=== PATIENT | male | born 1945 | race Caucasian/White ===

== ENCOUNTER 2017-05-21 13:28 | Inpatient (IN) | payer MEDICARE, MEDICAID ==
--- NOTE | 2017-05-21 14:11 | EDM.PDOC ---
ED HPI GENERAL MEDICAL PROBLEM - General Chief Complaint: Abdominal Pain Stated Complaint: RIGHT SIDED ABDOMINAL PAIN Time Seen by Provider: 05/21/17 14:00 Source of Information: Reports: Patient, RN Notes Reviewed History Limitations: Reports: No Limitations - History of Present Illness INITIAL COMMENTS - FREE TEXT/NARRATIVE: 72-year-old gentleman presents to the emergency department today with complaint of right lower quadrant pain, he states initially started around his umbilicus and then migrated to the right side over the last 24 hours, he's had this pain for about a week does use MiraLAX for constipation. Had a large bowel movement last night. He has not passed any gas in 24 hours however does not feel nauseated either abdominal Pain Score (Numeric/FACES): 9 - Related Data Allergies Allergy/AdvReac Type Severity Reaction Status Date / Time No Known Allergies Allergy Verified 05/21/17 13:54 Home Meds: Home Meds Aspirin 325 mg PO DAILY 02/25/13 [History] Esomeprazole Magnesium [Nexium] 40 mg PO ASDIRECTED 02/25/13 [History] Fenofibrate Nanocrystallized [Tricor] 48 mg PO DAILY 02/25/13 [History] Fluocinolone Acetonide [Synalar 0.01% Top Soln] 1 ml TOP BID PRN 02/25/13 [ History] Furosemide [Furosemide] 40 mg PO DAILY 02/25/13 [History] Ramipril [Altace] 10 mg PO BID 02/25/13 [History] Simvastatin [Simvastatin] 40 mg PO BEDTIME 02/25/13 [History] buPROPion HCl [Zyban] 150 mg PO BID 02/25/13 [History] metFORMIN [Glucophage] 850 mg PO TID 02/25/13 [History] Past Medical History Cardiovascular History: Reports: CAD, High Cholesterol, Hypertension, Stents Gastrointestinal History: Reports: GERD Endocrine/Metabolic History: Reports: Diabetes, Type II - Past Surgical History GI Surgical History: Reports: Appendectomy Social & Family History - Tobacco Use Smoking Status *Q: Never Smoker - Caffeine Use Caffeine Use: Reports: Coffee - Recreational Drug Use Recreational Drug Use: No ED ROS GENERAL - Review of Systems Review Of Systems: See Below Constitutional: Reports: No Symptoms HEENT: Reports: No Symptoms Respiratory: Reports: No Symptoms Cardiovascular: Reports: No Symptoms GI/Abdominal: Reports: Abdominal Pain. Denies: Constipation, Diarrhea, Flatus, Nausea, Vomiting : Reports: No Symptoms Musculoskeletal: Reports: No Symptoms Skin: Reports: No Symptoms Neurological: Reports: No Symptoms ED EXAM, GI/ABD - Physical Exam Exam: See Below Text/Narrative:: General: Male, not in any distress, alert and oriented x3 HEENT: head is atraumatic normocephalic, eyes pupils equal round reactive to light, sclera clear no conjunctivitis appreciated. Ears tympanic membranes clear and melendez landmarks and light reflex are present bilaterally canals are clear. Nose no septal deviation, nares are clear, no blood present. Mouth mucosa is moist and pink no erythema or exudate noted in soft palate, tongue is midline uvula is midline, dentition is intact. Neck: Supple no thyromegaly no tracheal deviation. Nodes: Cervical nodes subclavicular nodes nontender no palpable lymphadenopathy noted. Lungs: clear to auscultation bilaterally with symmetrical respirations, no adventitious noise appreciated. CV: Regular rate and rhythm S1 and S2 appreciated no murmurs rubs or gallops noted. Abdomen: Soft, tender right lower quadrant, no palpable masses or organomegaly appreciated, no distention positive guarding bowel sounds are present, surgical scar right lower quadrant prior appendicitis well healed clean and dry. Neuro: Cranial nerves II through XII grossly intact Skin: Warm and dry, intact Extremities: No lower extremity edema appreciated, Course - Vital Signs Last Recorded V/S: Last Vital Signs Temp 97.7 F 05/21/17 13:52 Pulse 109 H 05/21/17 13:52 Resp 16 05/21/17 13:52 BP 145/89 H 05/21/17 13:52 Pulse Ox 97 05/21/17 13:52 - Orders/Labs/Meds Orders: Active Orders 24 hr Category Date Time Status Gastrointestinal Tube Mgmt [RC] ASDIRECTED Care 05/21/17 14:44 Active Peripheral IV Care [RC] . DIRECTED Care 05/21/17 14:08 Active Sodium Chloride 0.9% [Normal Saline] 1,000 ml Med 05/21/17 14:15 Active IV ASDIRECTED Sodium Chloride 0.9% [Saline Flush] Med 05/21/17 14:07 Active 10 ml FLUSH ASDIRECTED PRN Nasogastric Orogastric Tube Insertion [OM.PC] Routine Oth 05/21/17 14:44 Ordered Peripheral IV Insertion Adult [OM.PC] Urgent Oth 05/21/17 14:07 Ordered Medication Orders Sodium Chloride (Normal Saline) 1,000 mls @ 500 mls/hr IV ASDIRECTED ALBERT Last Admin: 05/21/17 14:41 Dose: 500 mls/hr Sodium Chloride (Saline Flush) 10 ml FLUSH ASDIRECTED PRN PRN Reason: Keep Vein Open Last Admin: 05/21/17 14:32 Dose: 10 ml Labs: Laboratory Tests 05/21/17 05/21/17 05/21/17 Range/Units 14:19 14:19 14:19 WBC 12.1 H (4.5-11.0) K/uL RBC 4.21 L (4.30-5.90) M/uL Hgb 11.9 L (12.0-15.0) g/dL Hct 35.5 L (40.0-54.0) % MCV 84 (80-98) fL MCH 28 (27-31) pg MCHC 34 (32-36) % Plt Count 257 (150-400) K/uL Neut % (Auto) 69 H (36-66) % Lymph % (Auto) 19 L (24-44) % Pettis % (Auto) 11 H (2-6) % Eos % (Auto) 1 L (2-4) % Baso % (Auto) 0 (0-1) % Sodium 137 L (140-148) mmol/L Potassium 4.2 (3.6-5.2) mmol/L Chloride 103 (100-108) mmol/L Carbon Dioxide 21 (21-32) mmol/L Anion Gap 17.2 H (5.0-14.0) mmol/L BUN 20 H (7-18) mg/dL Creatinine 1.6 H (0.8-1.3) mg/dL Est Cr Clr Drug Dosing 39.59 mL/min Estimated GFR (MDRD) 43 L (>60) Glucose 124 H (74-106) mg/dL Lactic Acid 1.6 (0.4-2.0) mmol/L Calcium 9.5 (8.5-10.1) mg/dL Total Bilirubin 0.5 (0.2-1.0) mg/dL AST 14 L (15-37) U/L ALT 17 (12-78) U/L Alkaline Phosphatase 88 (46-116) U/L Troponin I < 0.017 (0.000-0.056) ng/mL Total Protein 7.2 (6.4-8.2) g/dL Albumin 4.1 (3.4-5.0) g/dL Globulin 3.1 (2.3-3.5) g/dL Albumin/Globulin Ratio 1.3 (1.2-2.2) Lipase 82 (73-393) U/L Urine Color Urine Appearance Urine pH (4.5-8.0) Ur Specific [place] (1.008-1.030) Urine Protein (NEGATIVE) mg/dL Urine Glucose (UA) (NEGATIVE) mg/dL Urine Ketones (NEGATIVE) mg/dL Urine Occult Blood (NEGATIVE) Urine Nitrite (NEGAITVE) Urine Bilirubin (NEGATIVE) Urine Urobilinogen (NORMAL) mg/dL Ur Leukocyte Esterase (NEGATIVE) Urine RBC (0-5) Urine WBC (0-5) Ur Epithelial Cells Amorphous Sediment Urine Bacteria Urine Mucus 05/21/17 Range/Units 14:44 WBC (4.5-11.0) K/uL RBC (4.30-5.90) M/uL Hgb (12.0-15.0) g/dL Hct (40.0-54.0) % MCV (80-98) fL MCH (27-31) pg MCHC (32-36) % Plt Count (150-400) K/uL Neut % (Auto) (36-66) % Lymph % (Auto) (24-44) % Pettis % (Auto) (2-6) % Eos % (Auto) (2-4) % Baso % (Auto) (0-1) % Sodium (140-148) mmol/L Potassium (3.6-5.2) mmol/L Chloride (100-108) mmol/L Carbon Dioxide (21-32) mmol/L Anion Gap (5.0-14.0) mmol/L BUN (7-18) mg/dL Creatinine (0.8-1.3) mg/dL Est Cr Clr Drug Dosing mL/min Estimated GFR (MDRD) (>60) Glucose (74-106) mg/dL Lactic Acid (0.4-2.0) mmol/L Calcium (8.5-10.1) mg/dL Total Bilirubin (0.2-1.0) mg/dL AST (15-37) U/L ALT (12-78) U/L Alkaline Phosphatase (46-116) U/L Troponin I (0.000-0.056) ng/mL Total Protein (6.4-8.2) g/dL Albumin (3.4-5.0) g/dL Globulin (2.3-3.5) g/dL Albumin/Globulin Ratio (1.2-2.2) Lipase (73-393) U/L Urine Color Yellow Urine Appearance Clear Urine pH 5.0 (4.5-8.0) Ur Specific [place] 1.015 (1.008-1.030) Urine Protein Negative (NEGATIVE) mg/dL Urine Glucose (UA) Normal (NEGATIVE) mg/dL Urine Ketones Negative (NEGATIVE) mg/dL Urine Occult Blood Negative (NEGATIVE) Urine Nitrite Negative (NEGAITVE) Urine Bilirubin Negative (NEGATIVE) Urine Urobilinogen Normal (NORMAL) mg/dL Ur Leukocyte Esterase Negative (NEGATIVE) Urine RBC 0-5 (0-5) Urine WBC 0-5 (0-5) Ur Epithelial Cells Few Amorphous Sediment Few Urine Bacteria Not seen Urine Mucus Few Meds: Medications Generic Name Dose Route Start Last Admin Trade Name Freq PRN Reason Stop Dose Admin Sodium Chloride 1,000 mls @ 500 mls/hr 05/21/17 14:15 05/21/17 14:41 Normal Saline IV 500 mls/hr ASDIRECTED ALBERT Administration Sodium Chloride 10 ml 05/21/17 14:07 05/21/17 14:32 Saline Flush FLUSH 10 ml ASDIRECTED PRN Administration Keep Vein Open Discontinued Medications Generic Name Dose Route Start Last Admin Trade Name Freq PRN Reason Stop Dose Admin Hydromorphone HCl 1 mg 05/21/17 14:44 05/21/17 14:58 Dilaudid IVPUSH 05/21/17 14:45 1 mg ONETIME ONE Administration Iopamidol 117 ml 05/21/17 14:30 05/21/17 14:32 Isovue-300 (61%) IV 117 ml . DIRECTED ALBERT Administration Ondansetron HCl 4 mg 05/21/17 14:44 05/21/17 14:58 Zofran IVPUSH 05/21/17 14:45 4 mg ONETIME ONE Administration Departure - Departure Time of Disposition: 15:13 Disposition: Admitted As Inpatient 67 Condition: Fair Clinical Impression: Large bowel obstruction - Discharge Information Referrals: Arturo Crystal MD [Primary Care Provider] - Forms: ED Department Discharge - My Orders Last 24 Hours: My Active Orders 05/21/17 14:07 Sodium Chloride 0.9% [Saline Flush] 10 ml FLUSH ASDIRECTED PRN Peripheral IV Insertion Adult [OM.PC] Urgent 05/21/17 14:08 Peripheral IV Care [RC] . DIRECTED 05/21/17 14:15 Sodium Chloride 0.9% [Normal Saline] 1,000 ml IV ASDIRECTED 05/21/17 14:44 Gastrointestinal Tube Mgmt [RC] ASDIRECTED Nasogastric Orogastric Tube Insertion [OM.PC] Routine - Assessment/Plan Last 24 Hours: My Active Orders 05/21/17 14:07 Sodium Chloride 0.9% [Saline Flush] 10 ml FLUSH ASDIRECTED PRN Peripheral IV Insertion Adult [OM.PC] Urgent 05/21/17 14:08 Peripheral IV Care [RC] . DIRECTED 05/21/17 14:15 Sodium Chloride 0.9% [Normal Saline] 1,000 ml IV ASDIRECTED 05/21/17 14:44 Gastrointestinal Tube Mgmt [RC] ASDIRECTED Nasogastric Orogastric Tube Insertion [OM.PC] Routine Plan: Assessment Acuity = acute Site and laterality = bowel obstruction complicated in a patient with known history of coronary artery disease and diabetes mellitus type 2, hypertension and dyslipidemia Etiology = unclear etiology doesn't a history of appendicitis 20 years ago Manifestations = abdominal pain Location of injury = Home Lab values = WBC elevated at 12.1 consistent leukocytosis, creatinine elevated at 1.6 consistent with acute renal failure stage G IIIB lactic acid normal at 1.6 troponin was negative urinalysis unremarkable CT scan describes a bowel obstruction mid transverse colon Plan I did review lab work with him as well as CT scan results called and discussed case with hospitalist environmental conservation professor he agreed to, and evaluate the patient in the emergency department for admission, he has been given 1 L of fluids, 1 mg Dilaudid, 4 mg Zofran and an NG tube has been placed This note was dictated using [employer] voice recognition software please call with any questions on syntax or bernardo.
[2017-05-21] MEDS ORDERED: Sodium Chloride 0.9% 1,000 ML IV SCH ×2 (14:15→17:10)
[2017-05-21] MEDS ORDERED: Iopamidol 612 MG/ML 150 ML Bottle IV SCH (14:30)
[2017-05-21] MEDS: Sodium Chloride 0.9% 10 ML Syringe FLUSH PRN (14:32)
[2017-05-21] MEDS ORDERED: HYDROmorphone 1 MG/ML Syringe IVPUSH ONE (14:44)
[2017-05-21] MEDS ORDERED: Ondansetron 4 MG/2 ML SDV IVPUSH ONE (14:44)
--- NOTE | 2017-05-21 14:53 | CT ---
Abdomen Pelvis w Cont HISTORY: RLQ pain Axial spiral enhanced CT scan of the abdomen and pelvis was obtained using oral and intravenous contr ast. Coronal and sagittal. There are no prior exams for comparison. Reconstructions were obtained FINDINGS: Heart size is within normal limits. Lung bases are clear. No focal abnormality of the liver , spleen, gallbladder, pancreas, adrenal glands, or kidneys is identified. There is no hydronephrosis or ureteral dilatation. The ascending and proximal transverse colon are prominently distended and fluid-filled. Air-fluid lev els are seen. At the mid transverse colon there is abrupt prominent narrowing of the colon extending radiology medical about 2 cm. The colon then returns to relatively normal caliber. There is a small a mount of adjacent inflammatory fat stranding. Distal ileum is mildly dilated and fluid-filled. Remain ashwini of the small bowel loops are nondistended. There are scattered diverticuli most numerous in the s igmoid colon. Scattered atherosclerotic vascular calcification is noted. Abdominal aorta is not dilated. No pelvic mass or abnormal fluid collections are seen. I see no pelvic, retroperitoneal, or mesenteric adenopat hy. There is no free air or free fluid. Mild degenerative changes are noted diffusely along the lower thoracic and lumbar spine. IMPRESSION: 1. Fairly high-grade obstruction mid transverse colon. Obstruction due to adhesions or inflammation c ould be considered. Underlying malignancy needs to be excluded. I do not see signs of intussusception or volvulus. 2. Scattered diverticula are noted most numerous in the sigmoid colon. Report was called to Officer at 1442 hours. Total DLP 562 mGycm
--- NOTE | 2017-05-21 15:53 | PCM.HP ---
H&P History of Present Illness - General Date of Service: 05/21/17 Admit Problem/Dx: Admission Diagnosis/Problem Admission Diagnosis/Problem Intestinal obstruction Source of Information: Patient, Family, Provider History Limitations: Reports: No Limitations - History of Present Illness Initial Comments - Free Text/Narative: Genaro presented to the emergency department with approximately one week of progressive abdominal pain. He reports short but very sharp and severe pains that initially started in the right side of his abdomen and radiated to the right flank. These would only last for a few seconds before dissipating. He would have several of these episodes per hour but they lasted only a very short while. Over the past several days the pains have become more intense and more frequent. Over the past 24 hours they have started lasting much longer and can persist for up to 5 minutes. He did try some gas relieving pills but they did not provide any benefit. He has not noticed any obvious trigger for the pains and they seem to come and go in waves as they please. His appetite has been reduced but not absent. He has continued to have bowel movements and had 2 of them yesterday and one the day before area and these were watery bowel movements not formed bowel movements. He has not had any nausea or vomiting. No fevers or chills. His weight has been down a little bit recently but he attributes this to not eating as much as he did in the past. No complaints of shortness of breath or chest pain with exertion. He has never had episodes like this in the past. His only abdominal surgery was more than 20 years ago and it was an open appendectomy. he has never had a colonoscopy in the past but has had regular FIT testing and reports that they have always come back normal. Workup in the emergency room revealed Evidence for a high-grade obstruction in the mid transverse colon based on CT scan imaging. An NG tube has been placed and he will be admitted for further management. abdominal Pain Score (Numeric/FACES): 9 - Related Data Allergies/Adverse Reactions: Allergies Allergy/AdvReac Type Severity Reaction Status Date / Time No Known Allergies Allergy Verified 05/21/17 13:54 Home Medications: Home Meds Aspirin 325 mg PO BEDTIME 02/25/13 [History] Esomeprazole Magnesium [Nexium] 40 mg PO DAILY 02/25/13 [History] Fenofibrate Nanocrystallized [Tricor] 48 mg PO DAILY 02/25/13 [History] Fluocinolone Acetonide [Synalar 0.01% Top Soln] 1 ml TOP BID PRN 02/25/13 [ History] Furosemide [Furosemide] 40 mg PO DAILY 02/25/13 [History] Ramipril [Altace] 10 mg PO BID 02/25/13 [History] Simvastatin [Simvastatin] 40 mg PO BEDTIME 02/25/13 [History] buPROPion HCl [Zyban] 150 mg PO BID 02/25/13 [History] metFORMIN [Glucophage] 850 mg PO ASDIRECTED 02/25/13 [History] SitaGLIPtin [Januvia] 25 mg PO DAILY 05/21/17 [History] Past Medical History Cardiovascular History: Reports: CAD, High Cholesterol, Hypertension, Stents Gastrointestinal History: Reports: GERD Endocrine/Metabolic History: Reports: Diabetes, Type II - Past Surgical History GI Surgical History: Reports: Appendectomy Social & Family History - Family History Oncologic: Reports: Renal (father in his 50's), Other (See Below) (Mom with "female cancer") - Tobacco Use Smoking Status *Q: Never Smoker - Caffeine Use Caffeine Use: Reports: Coffee - Alcohol Use Alcohol Use History: No - Recreational Drug Use Recreational Drug Use: No H&P Review of Systems - Review of Systems: Review Of Systems: See Below Free Text/Narrative: A complete 12 point review of systems was obtained. Pertinent positives and negatives are noted in the history of present illness. All other systems were reviewed and were negative except as noted. Exam - Exam Exam: See Below - Vital Signs Vital Signs: Last Vital Signs Temp 36.5 C 05/21/17 13:52 Pulse 100 05/21/17 15:43 Resp 16 05/21/17 15:43 BP 121/77 05/21/17 15:43 Pulse Ox 95 05/21/17 15:43 Weight: 78.1 kg - Exam Quality Assessment: No: Supplemental Oxygen General: Alert, Oriented, Cooperative. No: Mild Distress HEENT: Conjunctiva Clear. No: Mucosa Moist & [place] (dry), Scleral Icterus Neck: Supple, Trachea Midline. No: Lymphadenopathy, Thyromegaly Lungs: Clear to Auscultation, Normal Respiratory Effort Cardiovascular: Regular Rate, Regular Rhythm. No: Systolic Murmur GI/Abdominal Exam: Normal Bowel Sounds, Soft, Distended, Tender. No: Guarding Back Exam: Normal Inspection, Full Range of Motion Extremities: No Pedal Edema. No: Increased Warmth Peripheral Pulses: 2+: Dorsalis Pedis (L), Dorsalis Pedis (R) Skin: Warm, Dry, Intact. No: Ecchymosis Neuro Extensive - Mental Status: Alert, Oriented x3, Nl Response to Commands Neuro Extensive - Motor, Sensory, Reflexes: CN II-XII Intact. No: Dysarthria, Abnormal Motor, Tremor Psychiatric: Alert, Normal Affect - Patient Data Lab Results Last 24 hrs: Laboratory Results - last 24 hr 05/21/17 05/21/17 05/21/17 Range/Units 14:19 14:19 14:19 WBC 12.1 H (4.5-11.0) K/uL RBC 4.21 L (4.30-5.90) M/uL Hgb 11.9 L (12.0-15.0) g/dL Hct 35.5 L (40.0-54.0) % MCV 84 (80-98) fL MCH 28 (27-31) pg MCHC 34 (32-36) % Plt Count 257 (150-400) K/uL Neut % (Auto) 69 H (36-66) % Lymph % (Auto) 19 L (24-44) % [place] % (Auto) 11 H (2-6) % Eos % (Auto) 1 L (2-4) % Baso % (Auto) 0 (0-1) % Sodium 137 L (140-148) mmol/L Potassium 4.2 (3.6-5.2) mmol/L Chloride 103 (100-108) mmol/L Carbon Dioxide 21 (21-32) mmol/L Anion Gap 17.2 H (5.0-14.0) mmol/L BUN 20 H (7-18) mg/dL Creatinine 1.6 H (0.8-1.3) mg/dL Est Cr Clr Drug Dosing 39.59 mL/min Estimated GFR (MDRD) 43 L (>60) Glucose 124 H (74-106) mg/dL Lactic Acid 1.6 (0.4-2.0) mmol/L Calcium 9.5 (8.5-10.1) mg/dL Total Bilirubin 0.5 (0.2-1.0) mg/dL AST 14 L (15-37) U/L ALT 17 (12-78) U/L Alkaline Phosphatase 88 (46-116) U/L Troponin I < 0.017 (0.000-0.056) ng/mL Total Protein 7.2 (6.4-8.2) g/dL Albumin 4.1 (3.4-5.0) g/dL Globulin 3.1 (2.3-3.5) g/dL Albumin/Globulin Ratio 1.3 (1.2-2.2) Lipase 82 (73-393) U/L Urine Color Urine Appearance Urine pH (4.5-8.0) Ur Specific [place] (1.008-1.030) Urine Protein (NEGATIVE) mg/dL Urine Glucose (UA) (NEGATIVE) mg/dL Urine Ketones (NEGATIVE) mg/dL Urine Occult Blood (NEGATIVE) Urine Nitrite (NEGAITVE) Urine Bilirubin (NEGATIVE) Urine Urobilinogen (NORMAL) mg/dL Ur Leukocyte Esterase (NEGATIVE) Urine RBC (0-5) Urine WBC (0-5) Ur Epithelial Cells Amorphous Sediment Urine Bacteria Urine Mucus 05/21/17 Range/Units 14:44 WBC (4.5-11.0) K/uL RBC (4.30-5.90) M/uL Hgb (12.0-15.0) g/dL Hct (40.0-54.0) % MCV (80-98) fL MCH (27-31) pg MCHC (32-36) % Plt Count (150-400) K/uL Neut % (Auto) (36-66) % Lymph % (Auto) (24-44) % [place] % (Auto) (2-6) % Eos % (Auto) (2-4) % Baso % (Auto) (0-1) % Sodium (140-148) mmol/L Potassium (3.6-5.2) mmol/L Chloride (100-108) mmol/L Carbon Dioxide (21-32) mmol/L Anion Gap (5.0-14.0) mmol/L BUN (7-18) mg/dL Creatinine (0.8-1.3) mg/dL Est Cr Clr Drug Dosing mL/min Estimated GFR (MDRD) (>60) Glucose (74-106) mg/dL Lactic Acid (0.4-2.0) mmol/L Calcium (8.5-10.1) mg/dL Total Bilirubin (0.2-1.0) mg/dL AST (15-37) U/L ALT (12-78) U/L Alkaline Phosphatase (46-116) U/L Troponin I (0.000-0.056) ng/mL Total Protein (6.4-8.2) g/dL Albumin (3.4-5.0) g/dL Globulin (2.3-3.5) g/dL Albumin/Globulin Ratio (1.2-2.2) Lipase (73-393) U/L Urine Color Yellow Urine Appearance Clear Urine pH 5.0 (4.5-8.0) Ur Specific [place] 1.015 (1.008-1.030) Urine Protein Negative (NEGATIVE) mg/dL Urine Glucose (UA) Normal (NEGATIVE) mg/dL Urine Ketones Negative (NEGATIVE) mg/dL Urine Occult Blood Negative (NEGATIVE) Urine Nitrite Negative (NEGAITVE) Urine Bilirubin Negative (NEGATIVE) Urine Urobilinogen Normal (NORMAL) mg/dL Ur Leukocyte Esterase Negative (NEGATIVE) Urine RBC 0-5 (0-5) Urine WBC 0-5 (0-5) Ur Epithelial Cells Few Amorphous Sediment Few Urine Bacteria Not seen Urine Mucus Few Result Diagrams: 05/21/17 14:19 05/21/17 14:19 Imaging Impressions Last 24 hrs: CT abd/pelvis - images personally reviewed - there is a high grade obstruction in the mid transverse colon. Suspect adhesion as cause for obstruction but cannot rule out inflammatory or neoplastic cause. No other acute findings. *Q Meaningful Use (ADM) - VTE *Q VTE Criteria *Q: - VTE Risk Assess *Q Each Risk Factor Represents 1 Point: Obesity ( BMI > 25 kg/m2), Abnormal Pulmonary Function (COPD) Total Score 1 Point Risk Factors: 2 Each Risk Factor Represents 2 Points: Age 60 - 74 Years Total Score 2 Point Risk Factors: 2 Each Risk Factor Represents 3 Points: None Total Score 3 Point Risk Factors: 0 Each Risk Factor Represents 5 Points: None Total Score 5 Point Risk Factors: 0 Venous Thromboembolism Risk Factor Score *Q: 4 - Stroke *Q Stroke Criteria *Q: - AMI *Q AMI Criteria *Q: - Problem List (1) Large bowel obstruction SNOMED Code(s): 111544070 ICD Code: K56.609 - UNSP INTESTNL OBST, UNSP TO PARTIAL VERSUS COMPLETE OBST Status: Acute Current Visit: Yes (2) Diabetes mellitus type II, controlled SNOMED Code(s): 65082872 ICD Code: E11.9 - TYPE 2 DIABETES MELLITUS WITHOUT COMPLICATIONS Status: Chronic Current Visit: Yes Qualifiers: Diabetes mellitus complication status: without complication 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 DIRECTED Care 05/21/17 14:08 Active Sodium Chloride 0.9% [Normal Saline] 1,000 ml Med 05/21/17 14:15 Active IV ASDIRECTED Sodium Chloride 0.9% [Saline Flush] Med 05/21/17 14:07 Active 10 ml FLUSH ASDIRECTED PRN Nasogastric Orogastric Tube Insertion [OM.PC] Routine Oth 05/21/17 14:44 Ordered Peripheral IV Insertion Adult [OM.PC] Urgent Oth 05/21/17 14:07 Ordered Resuscitation Status Routine Resus Stat 05/21/17 15:41 Ordered Medication Orders Sodium Chloride (Normal Saline) 1,000 mls @ 500 mls/hr IV ASDIRECTED ALBERT Last Admin: 05/21/17 14:41 Dose: 500 mls/hr Sodium Chloride (Saline Flush) 10 ml FLUSH ASDIRECTED PRN PRN Reason: Keep Vein Open Last Admin: 05/21/17 14:32 Dose: 10 ml Assessment/Plan Comment:: ASSESSMENT AND PLAN - Large bowel obstruction involving the mid transverse colon - radiologic interpretation suspicious for adhesions but cannot rule out inflammatory or neoplastic cause at this time. Patient has never had a colonoscopy before. He has had previous abdominal surgery. Symptoms are very well controlled at this time. -NG tube to low continuous suction -IV fluids -Pain control -Nausea control -Repeat x-ray in the morning -Surgical consultation if worsening or not getting better Type 2 diabetes mellitus - well controlled by history, patient takes metformin and Januvia. Plan to hold oral medications at least during the first part of the hospital stay. -Sliding-scale insulin -Every 6 hour Accu-Cheks History of cerebrovascular disease - current medical therapy includes blood pressure control and lipid lowering medications. -Continue medical management Stage III chronic kidney disease - baseline kidney function not clear at this time but I suspect he is little bit on the dehydrated side. -Repeat labs in the morning after hydration Maintenance issues - - DVT prophylaxis - mechanical - GI prophylaxis - PPI - Nutrition - nothing by mouth - Rodrigues catheter - not indicated CODE STATUS - full code Admission justification - This patient will be admitted for inpatient services and is medically appropriate meeting medical necessity for inpatient admission as outlined in my documentation. I reasonably expect the patient will require inpatient services that span a period time over 2 midnights. I reasonably expect this patient to be discharged or transferred within 96 hours [facility] Disposition - I would anticipate discharge to home after the hospital stay Primary care physician - Dr Marah Higgins M.D.
[2017-05-21] MEDS ORDERED: Ondansetron 4 MG Tab.DIS PO PRN (17:10)
[2017-05-21] MEDS ORDERED: HYDROmorphone 0.5 MG/0.5 ML Syringe IVPUSH PRN (17:10)
[2017-05-21] MEDS ORDERED: Acetaminophen 325 MG Tab PO PRN (17:10)
[2017-05-21] MEDS ORDERED: Polyethylene Glycol 3350 Powder 17 GM Packet PO PRN (17:10)
[2017-05-21] MEDS ORDERED: Ondansetron 4 MG/2 ML SDV IV PRN (17:10)
[2017-05-21] MEDS: Pantoprazole 40 MG Vial IV SCH (18:34)
[2017-05-21] MEDS: Insulin Aspart 100 Units/ML 3 ML Pen SUBCUT SCH ×2 (18:35→21:28)
[2017-05-21] MEDS: Aspirin 325 MG Tab.EC PO SCH (20:54)
[2017-05-21] MEDS: buPROPion 150 MG Tab.SR PO SCH (20:55)
[2017-05-21] MEDS: Simvastatin 20 MG Tab PO SCH (20:56)
[2017-05-22] MEDS: Insulin Aspart 100 Units/ML 3 ML Pen SUBCUT SCH ×5 (00:48→22:47)
[2017-05-22] MEDS ORDERED: Dextrose 5%-Lactated Ringers 1,000 ML IV SCH (01:00)
--- NOTE | 2017-05-22 08:52 | CR ---
Abdomen 2V AP Flat Upright HISTORY: f/u obstruction FINDINGS: Bowel gas pattern is nonspecific. No obstruction or free air is identified. Distended proximal colon seen on yesterday's CT study is not apparent on today's plain radiographs. NG tube passes into the st omach. No soft tissue mass, organomegaly, or abnormal calcifications are seen. Bony structures are un remarkable. There is residual contrast in the urinary bladder from yesterday's CT study. IMPRESSION: Nonspecific abdomen. No obstruction is identified.
[2017-05-22] MEDS: buPROPion 150 MG Tab.SR PO SCH ×2 (09:16→21:28)
--- NOTE | 2017-05-22 10:40 | PCM.PN ---
- General Info Date of Service: 05/22/17 Functional Status: Reports: Pain Controlled - Review of Systems General: Denies: Fever Gastrointestinal: Reports: Diarrhea. Denies: Abdominal Pain Systems Review Comment:: No acute events overnight. No nausea and only minimal NG tube drainage. He has had 2 loose bowel movements and has no abdominal pain at this time. Abdominal x- ray looks better today. Appetite has returned. - Patient Data Vitals - Most Recent: Last Vital Signs Temp 36.3 C 05/22/17 08:11 Pulse 90 05/22/17 08:11 Resp 16 05/22/17 08:11 BP 145/73 H 05/22/17 09:16 Pulse Ox 98 05/22/17 08:11 Weight - Most Recent: 79.379 kg I&O - Last 24 Hours: Intake & Output 05/21/17 05/22/17 05/22/17 22:59 06:59 14:59 Intake Total 1118 Output Total 75 150 Balance -75 968 Lab Results Last 24 Hours: Laboratory Results - last 24 hr 05/22/17 05/22/17 Range/Units 04:35 04:35 WBC 7.3 (4.5-11.0) K/uL RBC 3.73 L (4.30-5.90) M/uL Hgb 10.4 L (12.0-15.0) g/dL Hct 32.1 L (40.0-54.0) % MCV 86 (80-98) fL MCH 28 (27-31) pg MCHC 32 (32-36) % Plt Count 209 (150-400) K/uL Sodium 138 L (140-148) mmol/L Potassium 3.8 (3.6-5.2) mmol/L Chloride 105 (100-108) mmol/L Carbon Dioxide 24 (21-32) mmol/L Anion Gap 12.8 (5.0-14.0) mmol/L BUN 17 (7-18) mg/dL Creatinine 1.5 H (0.8-1.3) mg/dL Est Cr Clr Drug Dosing 42.23 mL/min Estimated GFR (MDRD) 46 L (>60) Glucose 126 H (74-106) mg/dL Calcium 8.5 (8.5-10.1) mg/dL Med Orders - Current: Current Medications Acetaminophen (Tylenol) 650 mg PO Q4H PRN PRN Reason: Pain (Mild 1-3)/fever Last Admin: 05/22/17 10:19 Dose: 650 mg Aspirin (Ecotrin) 325 mg PO BEDTIME [facility] Last Admin: 05/21/17 20:54 Dose: 325 mg Bupropion HCl (Wellbutrin Sr) 150 mg PO BID [facility] Last Admin: 05/22/17 09:16 Dose: 150 mg Hydromorphone HCl (Dilaudid) 0.5 - 1 mg IVPUSH Q2H PRN PRN Reason: Pain (severe 7-10) Insulin Aspart (Novolog) 0 unit SUBCUT Q6H [facility] PRN Reason: Protocol Last Admin: 05/22/17 08:18 Dose: Not Given Ondansetron HCl (Zofran Odt) 4 mg PO Q6H PRN PRN Reason: Nausea able to take PO Ondansetron HCl (Zofran) 4 mg IV Q6H PRN PRN Reason: Nausea/Vomiting Pantoprazole Sodium (Protonix Iv) 40 mg IV Q24H [facility] Last Admin: 05/21/17 18:34 Dose: 40 mg Polyethylene Glycol (Miralax) 17 gm PO DAILY PRN PRN Reason: Constipation Ramipril (Altace) 10 mg PO BID [facility] Last Admin: 05/22/17 09:16 Dose: 10 mg Simvastatin (Zocor) 40 mg PO BEDTIME [facility] Last Admin: 05/21/17 20:56 Dose: 40 mg Sodium Chloride (Saline Flush) 10 ml FLUSH ASDIRECTED PRN PRN Reason: Keep Vein Open Last Admin: 05/21/17 14:32 Dose: 10 ml Discontinued Medications Hydromorphone HCl (Dilaudid) 1 mg IVPUSH ONETIME ONE Stop: 05/21/17 14:45 Last Admin: 05/21/17 14:58 Dose: 1 mg Sodium Chloride (Normal Saline) 1,000 mls @ 500 mls/hr IV ASDIRECTED [facility] Last Admin: 05/21/17 14:41 Dose: 500 mls/hr Sodium Chloride (Normal Saline) 1,000 mls @ 100 mls/hr IV ASDIRECTED [facility] Last Admin: 05/21/17 17:31 Dose: 100 mls/hr Dextrose/Lactated Ringer's (Dextrose 5%-Lactated Ringers) 1,000 mls @ 100 mls/ hr IV ASDIRECTED [facility] Last Admin: 05/22/17 02:31 Dose: 100 mls/hr Insulin Aspart (Novolog) 0 unit SUBCUT QIDACANDBED [facility] PRN Reason: Protocol Last Admin: 05/21/17 21:28 Dose: Not Given Iopamidol (Isovue-300 (61%)) 117 ml IV . DIRECTED [facility] Last Admin: 05/21/17 14:32 Dose: 117 ml Ondansetron HCl (Zofran) 4 mg IVPUSH ONETIME ONE Stop: 05/21/17 14:45 Last Admin: 05/21/17 14:58 Dose: 4 mg - Exam Quality Assessment: No: Supplemental Oxygen General: Alert, Oriented, Cooperative, No Acute Distress Neck: Supple Lungs: Normal Respiratory Effort GI/Abdominal Exam: Soft, Non-Tender, No Distention Extremities: No Pedal Edema Psy/Mental Status: Alert, Normal Affect - Problem List & Annotations (1) Large bowel obstruction SNOMED Code(s): 130399861 Code(s): K56.609 - UNSP INTESTNL OBST, UNSP TO PARTIAL VERSUS COMPLETE OBST Status: Acute Current Visit: Yes (2) Diabetes mellitus type II, controlled SNOMED Code(s): 21203207 Code(s): E11.9 - TYPE 2 DIABETES MELLITUS WITHOUT COMPLICATIONS Status: Chronic Current Visit: Yes Qualifiers: Diabetes mellitus complication status: without complication 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 Qualified Code(s): E11.9 - Type 2 diabetes mellitus without complications (3) Cerebrovascular disease SNOMED Code(s): 95152718 Code(s): I67.9 - CEREBROVASCULAR DISEASE, UNSPECIFIED Status: Chronic Current Visit: Yes - Problem List Review Problem List Initiated/Reviewed/Updated: Yes - My Orders Last 24 Hours: My Active Orders 05/21/17 15:41 Resuscitation Status Routine 05/21/17 17:10 Patient Status [ADT] Routine Communication Order [RC] PRN Communication Order [RC] PRN Diabetes Education [RC] Click to Edit Intake and Output [RC] QSHIFT Notify Provider Vital Signs [RC] ASDIRECTED Notify Provider [RC] PRN Oxygen Therapy [RC] PRN Up ad Lavinia [RC] ASDIRECTED VTE/DVT Education [RC] Per Unit Routine Vital Signs [RC] Q4H Acetaminophen [Tylenol] 650 mg PO Q4H PRN HYDROmorphone [Dilaudid] 0.5 - 1 mg IVPUSH Q2H PRN Ondansetron [Zofran ODT] 4 mg PO Q6H PRN Ondansetron [Zofran] 4 mg IV Q6H PRN Polyethylene Glycol 3350 [MiraLAX] 17 gm PO DAILY PRN Sequential Compression Device [OM.PC] Per Unit Routine 05/21/17 18:00 Pantoprazole [ProTONIX IV] 40 mg IV Q24H 05/21/17 21:00 Aspirin [Ecotrin] 325 mg PO BEDTIME Ramipril [Altace] 10 mg PO BID Simvastatin [Zocor] 40 mg PO BEDTIME buPROPion [Wellbutrin SR] 150 mg PO BID 05/22/17 00:00 Insulin Aspart [NovoLOG] 0 unit SUBCUT Q6H 05/22/17 06:00 GLUCOSE POC LAB TO COLLECT [POC] Q6H 05/22/17 10:38 Convert IV to Saline Lock [OM.PC] Routine NG [Nasogastric Orogastric Tube Removal] [OM.PC] Routine 05/22/17 12:00 GLUCOSE POC LAB TO COLLECT [POC] Q6H 05/22/17 15:00 Polyethylene Glycol 3350 [MiraLAX] 238 gm PO ONETIME ONE 05/22/17 18:00 GLUCOSE POC LAB TO COLLECT [POC] Q6H 05/22/17 Lunch Clear Liquid Diet [DIET] 05/23/17 00:00 GLUCOSE POC LAB TO COLLECT [POC] Q6H 05/23/17 05:00 Abdomen 2V AP Flat Upright [CR] DAILY 05/23/17 06:00 GLUCOSE POC LAB TO COLLECT [POC] Q6H 05/23/17 12:00 GLUCOSE POC LAB TO COLLECT [POC] Q6H 05/23/17 18:00 GLUCOSE POC LAB TO COLLECT [POC] Q6H 05/23/17 Breakfast NPO After Midnight [Nothing per Oral After Midnight Diet] [DIET] 05/24/17 00:00 GLUCOSE POC LAB TO COLLECT [POC] Q6H 05/24/17 06:00 GLUCOSE POC LAB TO COLLECT [POC] Q6H 05/24/17 12:00 GLUCOSE POC LAB TO COLLECT [POC] Q6H 05/24/17 18:00 GLUCOSE POC LAB TO COLLECT [POC] Q6H 05/25/17 00:00 GLUCOSE POC LAB TO COLLECT [POC] Q6H 05/25/17 06:00 GLUCOSE POC LAB TO COLLECT [POC] Q6H 05/25/17 12:00 GLUCOSE POC LAB TO COLLECT [POC] Q6H 05/25/17 18:00 GLUCOSE POC LAB TO COLLECT [POC] Q6H 05/26/17 00:00 GLUCOSE POC LAB TO COLLECT [POC] Q6H 05/26/17 06:00 GLUCOSE POC LAB TO COLLECT [POC] Q6H 05/26/17 12:00 GLUCOSE POC LAB TO COLLECT [POC] Q6H 05/26/17 18:00 GLUCOSE POC LAB TO COLLECT [POC] Q6H 05/27/17 00:00 GLUCOSE POC LAB TO COLLECT [POC] Q6H - Plan Plan:: ASSESSMENT AND PLAN - Large bowel obstruction involving the mid transverse colon - radiologic interpretation suspicious for adhesions but cannot rule out inflammatory or neoplastic cause at this time. Clinically better and NG tube will be removed. Planning colonoscopy tomorrow to further evaluate the area of presumed blockage to rule out inflammatory or neoplastic causes. -Remove NG -Clear liquids today -Pain control -Nausea control -Colonoscopy planned for tomorrow, preparation this afternoon Type 2 diabetes mellitus - well controlled by history, patient takes metformin and Januvia. Plan to hold oral medications until after colonoscopy. -Sliding-scale insulin -4 times a day Accu-Cheks. History of cerebrovascular disease - current medical therapy includes blood pressure control and lipid lowering medications. -Continue medical management Stage III chronic kidney disease - kidney function slightly improved compared to admission. -Repeat labs in the morning after hydration Maintenance issues - - DVT prophylaxis - mechanical - GI prophylaxis - PPI - Nutrition - nothing by mouth Disposition - I would anticipate discharge to home after the hospital stay Hossein Higgins M.D.
[2017-05-22] MEDS: Sodium Chloride 0.9% 10 ML Syringe FLUSH PRN (10:50)
[2017-05-22] MEDS ORDERED: Polyethylene Glycol 3350 Powder 238 GM Bot PO ONE (15:00)
[2017-05-22] MEDS: Pantoprazole 40 MG Vial IV SCH (17:33)
[2017-05-22] MEDS: Aspirin 325 MG Tab.EC PO SCH (21:28)
[2017-05-22] MEDS: Simvastatin 20 MG Tab PO SCH (21:28)
[2017-05-23] MEDS: Insulin Aspart 100 Units/ML 3 ML Pen SUBCUT SCH ×2 (07:26→13:09)
[2017-05-23] MEDS: buPROPion 150 MG Tab.SR PO SCH ×2 (09:35→13:14)
[2017-05-23] MEDS ORDERED: Propofol 200 MG/20 ML SDV ONE (10:40)
[2017-05-23] MEDS ORDERED: fentaNYL 100 MCG/2 ML SDV ONE (10:41)
--- NOTE | 2017-05-23 14:09 | PCM.DCSUM1 ---
Discharge Summary - Hospital Course Brief History: 72-year-old male with remote history of stroke, type 2 diabetes mellitus and appendectomy more than 20 years ago presented with abdominal pain and distention. Workup in the emergency room revealed obstruction of the mid transverse colon and he was admitted for management. - Discharge Data Discharge Date: 05/23/17 Discharge Disposition: Home, Self-Care 01 Condition: Good - Discharge Diagnosis/Problem(s) (1) Large bowel obstruction SNOMED Code(s): 669687712 ICD Code: K56.609 - UNSP INTESTNL OBST, UNSP TO PARTIAL VERSUS COMPLETE OBST Status: Acute Current Visit: Yes Problem Details: 2/2 adhesions (2) Diabetes mellitus type II, controlled SNOMED Code(s): 32295043 ICD Code: E11.9 - TYPE 2 DIABETES MELLITUS WITHOUT COMPLICATIONS Status: Chronic Current Visit: Yes Qualifiers: Diabetes mellitus complication status: without complication Diabetes mellitus terminal operations manager insulin use: without terminal operations manager use Qualified Code(s): E11.9 - Type 2 diabetes mellitus without complications (3) Cerebrovascular disease SNOMED Code(s): 65493395 ICD Code: I67.9 - CEREBROVASCULAR DISEASE, UNSPECIFIED Status: Chronic Current Visit: Yes - Patient Summary/Data Hospital Course: Genaro presented to the emergency room with upper abdominal pain. Workup in the emergency room was suggestive of an obstruction of the transverse colon. Initial imaging thought this might be related to an adhesion but could not rule out malignancy or inflammation as a cause. An NG tube was placed in the emergency room and he was admitted to the hospital for hydration, pain control and additional workup. There were no acute issues overnight following admission. The morning after admission his pain has essentially subsided and he has been having loose bowel movements. A repeat x-ray the morning after admission shows a resolution of the findings that had previously suggested a bowel obstruction. The NG tube was removed. I did talk to Dr. Emmanuel and a colonoscopy was recommended to evaluate but appeared to be a high-grade obstruction on the CT scan. On the second morning of hospitalization he had a colonoscopy after an uneventful night of prepping. The colonoscopy was normal other than some diverticulosis. The obstruction was likely secondary to adhesions. The obstruction seems to have resolved. He tolerated lunch with no change in his abdominal pain and no symptoms of nausea. He has passed a lot of gas after the procedure. He feels safe going home at this time and I believe he would be safe for outpatient management. I encouraged him to maintain a soft bland diet for the next several days as his colon recovers from the partial obstruction. He is aware that another episode is possible and will be monitoring for similar symptoms that brought him in to the emergency room this time. - Patient Instructions Diet: Regular Diet as Tolerated Diet, Other: soft and bland foods for the next several days Activity: As Tolerated Driving: Do Not Drive (may drive tomorrow once the anesthesia wears off completely) Showering/Bathing: May Shower Notify Provider of: Fever, Increased Pain, Nausea and/or Vomiting Other/Special Instructions: 1. You were in the hospital for management of an obstruction of year transverse colon. The colonoscopy did not reveal evidence for inflammation or a mass so the obstruction was likely caused by an adhesion from your appendix surgery years ago. Your condition has improved with nonsurgical management. I would recommend that you maintain a soft bland diet for the next several days before returning to your usual diet. There is a chance this could happen again because the adhesion is still inside your abdomen but surgical intervention at this time would likely make things worse rather than better. 2. Continue your usual medications as previously prescribed. 3. Please seek medical attention if you develop severe abdominal pain, persistent vomiting or you are unable to pass stool for several days. - Discharge Plan Home Medications: Home Meds Aspirin 325 mg PO BEDTIME 02/25/13 [History] Esomeprazole Magnesium [Nexium] 40 mg PO DAILY 02/25/13 [History] Fenofibrate Nanocrystallized [Tricor] 48 mg PO DAILY 02/25/13 [History] Fluocinolone Acetonide [Synalar 0.01% Top Soln] 1 ml TOP BID PRN 02/25/13 [ History] Furosemide 40 mg PO DAILY 02/25/13 [History] Ramipril [Altace] 10 mg PO BID 02/25/13 [History] Simvastatin 40 mg PO BEDTIME 02/25/13 [History] buPROPion HCl [Zyban] 150 mg PO BID 02/25/13 [History] metFORMIN [Glucophage] 850 mg PO ASDIRECTED 02/25/13 [History] SitaGLIPtin [Januvia] 25 mg PO DAILY 05/21/17 [History] Patient Handouts: Adhesions Referrals: Arturo Crystal MD [Primary Care Provider] - (follow-up as needed if symptoms get worse or do not continue to get better) - Discharge Summary/Plan Comment DC Time >30 min.: No (25) - Patient Data Vitals - Most Recent: Last Vital Signs Temp 36.4 C 05/23/17 13:00 Pulse 85 05/23/17 13:00 Resp 16 05/23/17 13:00 BP 173/70 H 05/23/17 13:13 Pulse Ox 100 05/23/17 13:00 Weight - Most Recent: 79.379 kg I&O - Last 24 hours: Intake & Output 05/22/17 05/23/17 05/23/17 22:59 06:59 14:59 Intake Total 240 410 Balance 240 410 Med Orders - Current: Current Medications Acetaminophen (Tylenol) 650 mg PO Q4H PRN PRN Reason: Pain (Mild 1-3)/fever Last Admin: 05/22/17 10:19 Dose: 650 mg Aspirin (Ecotrin) 325 mg PO BEDTIME [facility] Last Admin: 05/22/17 21:28 Dose: 325 mg Bupropion HCl (Wellbutrin Sr) 150 mg PO BID [facility] Last Admin: 05/23/17 13:14 Dose: 150 mg Hydromorphone HCl (Dilaudid) 0.5 - 1 mg IVPUSH Q2H PRN PRN Reason: Pain (severe 7-10) Insulin Aspart (Novolog) 0 unit SUBCUT QIDACANDBED [facility] PRN Reason: Protocol Last Admin: 05/23/17 13:09 Dose: 2 unit Ondansetron HCl (Zofran Odt) 4 mg PO Q6H PRN PRN Reason: Nausea able to take PO Ondansetron HCl (Zofran) 4 mg IV Q6H PRN PRN Reason: Nausea/Vomiting Pantoprazole Sodium (Protonix Iv) 40 mg IV Q24H [facility] Last Admin: 05/22/17 17:33 Dose: 40 mg Polyethylene Glycol (Miralax) 17 gm PO DAILY PRN PRN Reason: Constipation Ramipril (Altace) 10 mg PO BID [facility] Last Admin: 05/23/17 13:13 Dose: 10 mg Simvastatin (Zocor) 40 mg PO BEDTIME [facility] Last Admin: 05/22/17 21:28 Dose: 40 mg Sodium Chloride (Saline Flush) 10 ml FLUSH ASDIRECTED PRN PRN Reason: Keep Vein Open Last Admin: 05/22/17 10:50 Dose: 10 ml Discontinued Medications Fentanyl (Sublimaze) Confirm Administered Dose 100 mcg .ROUTE .STK-MED ONE Stop: 05/23/17 10:42 Hydromorphone HCl (Dilaudid) 1 mg IVPUSH ONETIME ONE Stop: 05/21/17 14:45 Last Admin: 05/21/17 14:58 Dose: 1 mg Sodium Chloride (Normal Saline) 1,000 mls @ 500 mls/hr IV ASDIRECTED [facility] Last Admin: 05/21/17 14:41 Dose: 500 mls/hr Sodium Chloride (Normal Saline) 1,000 mls @ 100 mls/hr IV ASDIRECTED [facility] Last Admin: 05/21/17 17:31 Dose: 100 mls/hr Dextrose/Lactated Ringer's (Dextrose 5%-Lactated Ringers) 1,000 mls @ 100 mls/ hr IV ASDIRECTED [facility] Last Admin: 05/22/17 02:31 Dose: 100 mls/hr Insulin Aspart (Novolog) 0 unit SUBCUT QIDACANDBED [facility] PRN Reason: Protocol Last Admin: 05/21/17 21:28 Dose: Not Given Insulin Aspart (Novolog) 0 unit SUBCUT Q6H [facility] PRN Reason: Protocol Last Admin: 05/22/17 17:48 Dose: Not Given Iopamidol (Isovue-300 (61%)) 117 ml IV . DIRECTED [facility] Last Admin: 05/21/17 14:32 Dose: 117 ml Ondansetron HCl (Zofran) 4 mg IVPUSH ONETIME ONE Stop: 05/21/17 14:45 Last Admin: 05/21/17 14:58 Dose: 4 mg Polyethylene Glycol (Miralax) 238 gm PO ONETIME ONE Stop: 05/22/17 15:01 Last Admin: 05/22/17 15:18 Dose: 238 gm Propofol (Diprivan 20 Ml) Confirm Administered Dose 200 mg .ROUTE .STK-MED ONE Stop: 05/23/17 10:41 - Exam Quality Assessment: Denies: Supplemental Oxygen General: Reports: Alert, Oriented, Cooperative, No Acute Distress Neck: Reports: Supple Lungs: Reports: Normal Respiratory Effort GI/Abdominal Exam: Soft, No Distention Extremities: No Pedal Edema Psy/Mental Status: Reports: Alert, Normal Affect *Q Meaningful Use (DIS) - VTE *Q VTE Criteria *Q: - Stroke *Q Stroke Criteria *Q: - AMI *Q AMI Criteria *Q:
--- NOTE | 2017-05-28 09:03 | OR ---
DATE OF PROCEDURE: 05/23/2017 PREOPERATIVE DIAGNOSIS: CAT scan suggestive of possible partial obstruction of transverse colon. POSTOPERATIVE DIAGNOSES: 1. Left colonic diverticulosis. 2. No obvious mass or partial obstruction seen on colonoscopy. OPERATIVE PROCEDURE: Flexible colonoscopy. ANESTHESIA: IV sedation. INDICATIONS FOR PROCEDURE: A 72-year-old presenting with some abdominal discomfort. This has now resolved, but a CT scan earlier in the hospitalization showed possible area of partial stricturing at the level of transverse colon. The plan is to proceed with a colonoscopy with biopsies and/or polypectomy as indicated. Potential risks including bleeding and perforation were discussed, and the patient wishes to proceed. DETAILS OF PROCEDURE: The patient was taken to the operating room and placed in a left lateral decubitus position. IV sedation was administered, after which the initial digital rectal exam was performed and was unremarkable. Colonoscope was then passed to the level of the rectum with retroflexion revealing uncomplicated hemorrhoidal columns. The scope was then eventually passed to the level of what appeared to be the cecum. This was visualized, somewhat less ideally than usual, but the entire length of scope was present, and we had passed through a significant length of triangulated colon consistent with the transverse colon. To that level, there was some uncomplicated left colonic diverticulosis. No areas of obvious stricturing or other mucosal abnormalities proximal to that were identified. The scope was then withdrawn. The procedure was then concluded. The patient was taken to the recovery room in satisfactory condition. At this point, as long as the patient appears clinically to do satisfactorily, we will not work things up further. If he does have any additional problems, one might consider a barium enema to make sure that something more proximal to what we were seeing with the colonoscope is not present, and we will follow the case over time. Ti Emmanuel MD /[id number]
== END 2017-05-23 15:25 | disposition home or self-care (01) | DRG 392 ==
LOC: JP.ED 13:28 → JP.MS 15:38
PROVIDERS: ADMIT Internal Medicine; ATTEND Internal Medicine
PROC: 0DJD8ZZ Inspection of Lower Intestinal Tract, Via Natural or Artificial Opening Endoscopic (ICD-10-PCS; principal; 2017-05-23)
DX: R10.31 Right lower quadrant pain (principal); K57.30 Diverticulosis of large intestine without perforation or abscess without bleeding; I12.9 Hypertensive chronic kidney disease with stage 1 through stage 4 chronic kidney disease, or unspecified chronic kidney disease; N18.3 Chronic kidney disease, stage 3 (moderate); E11.22 Type 2 diabetes mellitus with diabetic chronic kidney disease; Z79.84 Long term (current) use of oral hypoglycemic drugs; I67.9 Cerebrovascular disease, unspecified; I25.10 Atherosclerotic heart disease of native coronary artery without angina pectoris; K21.9 Gastro-esophageal reflux disease without esophagitis; Z95.5 Presence of coronary angioplasty implant and graft; Z86.73 Personal history of transient ischemic attack (TIA), and cerebral infarction without residual deficits; Z79.82 Long term (current) use of aspirin
CPT/HCPCS: 36415; 74177 ×2; 80053; 81001; 83605; 83690; 84484; 85025; 96361; 96374; 96375; 99284; 99285; J1170; J2405; J7040; J7050; 74019; 74019-26; 80048; 82962; 85027; A9270-GY; C9113; J2704; J3010; J7030; J7042

== ENCOUNTER 2017-05-26 08:23 | Emergency (ER) | payer MEDICARE, MEDICAID ==
--- NOTE | 2017-05-26 10:05 | EDM.PDOC ---
ED HPI GENERAL MEDICAL PROBLEM - General Chief Complaint: Abdominal Pain Stated Complaint: STOMACH CRAMPS Time Seen by Provider: 05/26/17 10:01 Source of Information: Reports: Patient History Limitations: Reports: No Limitations - History of Present Illness INITIAL COMMENTS - FREE TEXT/NARRATIVE: pt had severe abdomanal pain all nite. This was rated at a 9. He is better at this time. He has not vomited. He was just in the hospital and had a cat scan of the abdoman and a colonoscopy. These did not show acute findings according to the pt. abdomen Pain Score (Numeric/FACES): 0 - Related Data Allergies Allergy/AdvReac Type Severity Reaction Status Date / Time No Known Allergies Allergy Verified 05/26/17 09:12 Home Meds: Home Meds Aspirin 325 mg PO BEDTIME 02/25/13 [History] Esomeprazole Magnesium [Nexium] 40 mg PO DAILY 02/25/13 [History] Fenofibrate Nanocrystallized [Tricor] 48 mg PO DAILY 02/25/13 [History] Fluocinolone Acetonide [Synalar 0.01% Top Soln] 1 ml TOP BID PRN 02/25/13 [ History] Furosemide 40 mg PO DAILY 02/25/13 [History] Ramipril [Altace] 10 mg PO BID 02/25/13 [History] Simvastatin 40 mg PO BEDTIME 02/25/13 [History] buPROPion HCl [Zyban] 150 mg PO BID 02/25/13 [History] metFORMIN [Glucophage] 850 mg PO ASDIRECTED 02/25/13 [History] SitaGLIPtin [Januvia] 25 mg PO DAILY 05/21/17 [History] Past Medical History HEENT History: Reports: Hard of Hearing Cardiovascular History: Reports: CAD, High Cholesterol, Hypertension, Stents Gastrointestinal History: Reports: GERD Neurological History: Reports: CVA Endocrine/Metabolic History: Reports: Diabetes, Type II - Infectious Disease History Infectious Disease History: Reports: Influenza, Measles, Mumps - Past Surgical History Cardiovascular Surgical History: Reports: Coronary Artery Stent, Other (See Below) Other Cardiovascular Surgeries/Procedures: stroke 15 years ago GI Surgical History: Reports: Appendectomy Social & Family History - Family History Family Medical History: Noncontributory Oncologic: Reports: Renal, Other (See Below) - Tobacco Use Smoking Status *Q: Never Smoker Second Hand Smoke Exposure: No - Caffeine Use Caffeine Use: Reports: Coffee, Soda Caffeine Use Comment: a few cups a day - Recreational Drug Use Recreational Drug Use: No ED ROS GENERAL - Review of Systems Review Of Systems: See Below Constitutional: Reports: No Symptoms HEENT: Reports: No Symptoms Respiratory: Reports: No Symptoms Cardiovascular: Reports: No Symptoms Endocrine: Reports: No Symptoms GI/Abdominal: Reports: No Symptoms : Reports: Pain, Other (pt had pain for several hours at home. His pain is better now. He has had 2 cans of soup since he went home he has not been having stool. ) Musculoskeletal: Reports: No Symptoms Neurological: Reports: No Symptoms Psychiatric: Reports: No Symptoms ED EXAM, GI/ABD - Physical Exam Exam: See Below Text/Narrative:: pt arrived because he had several hours of abdomanal pain. He states he has not had a stool since hosp discharge. During the time he had the pain he was not passing gas. Exam Limited By: No Limitations General Appearance: Alert, Mild Distress, Other ( Pt states the pain is much better than prior to arrival. ) Ears: Normal TMs Nose: Normal Inspection Throat/Mouth: Normal Inspection Head: Atraumatic Neck: Normal Inspection Respiratory/Chest: No Respiratory Distress Cardiovascular: Regular Rate, Rhythm GI/Abdominal Exam: Other (Pt is tender in th rt loer abdoman. ) (Male) Exam: Deferred Rectal (Males) Exam: Deferred Back Exam: Normal Inspection Extremities: Normal Inspection Neurological: Alert, Oriented, Normal Cognition Course - Vital Signs Last Recorded V/S: Last Vital Signs Temp 36.1 C 05/26/17 09:19 Pulse 100 05/26/17 11:39 Resp 12 05/26/17 11:39 BP 144/69 H 05/26/17 11:39 Pulse Ox 99 05/26/17 11:39 - Orders/Labs/Meds Labs: Laboratory Tests 05/26/17 05/26/17 Range/Units 10:02 10:02 WBC 9.7 (4.5-11.0) K/uL RBC 4.48 (4.30-5.90) M/uL Hgb 12.6 D (12.0-15.0) g/dL Hct 37.3 L (40.0-54.0) % MCV 83 (80-98) fL MCH 28 (27-31) pg MCHC 34 (32-36) % Plt Count 312 (150-400) K/uL Neut % (Auto) 69 H (36-66) % Lymph % (Auto) 21 L (24-44) % [place] % (Auto) 9 H (2-6) % Eos % (Auto) 1 L (2-4) % Baso % (Auto) 0 (0-1) % Sodium 134 L (140-148) mmol/L Potassium 4.2 (3.6-5.2) mmol/L Chloride 99 L (100-108) mmol/L Carbon Dioxide 25 (21-32) mmol/L Anion Gap 14.2 H (5.0-14.0) mmol/L BUN 11 (7-18) mg/dL Creatinine 1.5 H (0.8-1.3) mg/dL Est Cr Clr Drug Dosing 42.23 mL/min Estimated GFR (MDRD) 46 L (>60) Glucose 130 H (74-106) mg/dL Calcium 9.5 (8.5-10.1) mg/dL - Re-Assessments/Exams Free Text/Narrative Re-Assessment/Exam: 05/27/17 11:46 as pt waited here his pain was much better. He does have some air fluid levels on the flat and upright of the abdoman. Departure - Departure Time of Disposition: 12:36 Disposition: Home, Self-Care 01 Condition: Fair Clinical Impression: Intermittent small bowel obstruction - Discharge Information Instructions: Small Bowel Obstruction, [id number] Referrals: Arturo Crystal MD [Primary Care Provider] - Forms: ED Department Discharge Care Plan Goals: rtc tomorrow for a ba enemea, Iif pt has recurrent pain tonight. He should be seen in ER before the Ba enemea is done. Pt should prep for the ba enemea.
--- NOTE | 2017-05-26 11:54 | CR ---
Acute abdomen series There are no infiltrates or effusions. The heart is normal in size. There is tortuosity of the thorac ic aorta. On the upright view there are few scattered air-fluid levels in the right abdomen. There is no free a ir. Impression: 1. Nonspecific air-fluid levels. The finding may reflect a enteritis. An obstructive process cannot b e excluded. Clinical correlation recommended.
== END 2017-05-26 13:12 | disposition home or self-care (01) ==
LOC: JP.ED 08:23
DX: K56.609 Unspecified intestinal obstruction, unspecified as to partial versus complete obstruction (principal); E78.00 Pure hypercholesterolemia, unspecified; I10 Essential (primary) hypertension; E11.9 Type 2 diabetes mellitus without complications; Z79.899 Other long term (current) drug therapy
CPT/HCPCS: 36415; 74022; 74022-26; 80048; 85025; 99283; 99284

== ENCOUNTER 2017-06-02 09:47 | Inpatient (IN) | payer MEDICARE, MEDICAID ==
[2017-06-02] MEDS ORDERED: Acetaminophen 500 MG Tab PO ONE (10:30)
[2017-06-02] MEDS ORDERED: Dextrose 5%-Lactated Ringers 1,000 ML IV SCH (10:30)
[2017-06-02] MEDS ORDERED: cefOXitin 2 GM in Sodium Chloride 0.9% 50 ML IV ONE (10:30)
[2017-06-02] MEDS ORDERED: fentaNYL 250 MCG/5 ML SDV ONE ×2 (12:43→16:06)
[2017-06-02] MEDS ORDERED: Succinylcholine/Normal Saline 200 MG/10 ML Syringe ONE (12:44)
[2017-06-02] MEDS ORDERED: Propofol 200 MG/20 ML SDV ONE (12:44)
[2017-06-02] MEDS ORDERED: Ondansetron 4 MG/2 ML SDV ONE (12:44)
[2017-06-02] MEDS ORDERED: Rocuronium 50 MG/5 ML Vial ONE (12:44)
[2017-06-02] MEDS ORDERED: Neostigmine Methylsulfate 1 MG/ML 5 ML Syringe ONE (12:44)
[2017-06-02] MEDS ORDERED: Dexamethasone 4 MG/ML SDV ONE (12:44)
[2017-06-02] MEDS ORDERED: Meropenem 500 MG SDV ONE (13:21)
[2017-06-02] MEDS ORDERED: Ketamine 500 MG/5 ML MDV IV SCH (13:30)
[2017-06-02] MEDS ORDERED: Lidocaine 2% 100 MG/5 ML Syringe IVPUSH ONE (13:45)
[2017-06-02] MEDS ORDERED: Lidocaine 0.4%/D5W 2 GM/500 ML BAG IV SCH (13:45)
[2017-06-02] MEDS ORDERED: Naloxone 0.4 MG/ML SDV IVPUSH PRN (14:00)
[2017-06-02] MEDS ORDERED: Lactated Ringers 1,000 ML ONE (14:31)
[2017-06-02] MEDS ORDERED: Phenylephrine 1% 10 MG/ML SDV ONE (14:46)
[2017-06-02] MEDS ORDERED: Sodium Chloride 0.9% 10 ML ONE (14:56)
[2017-06-02] MEDS ORDERED: fentaNYL 100 MCG/2 ML SDV ONE (14:57)
[2017-06-02] MEDS ORDERED: Acetaminophen 500 MG Tab PO SCH (16:00)
[2017-06-02] MEDS ORDERED: cefOXitin 2 GM Vial ONE (17:42)
[2017-06-02] MEDS: fentaNYL 2,500 MCG in Sodium Chloride 0.9% 200 ML EPIDUR SCH (18:30)
[2017-06-02] MEDS: Dextrose 5%-Lactated Ringers 1,000 ML IV SCH (18:48)
[2017-06-02] MEDS ORDERED: Ondansetron 4 MG/2 ML SDV IVPUSH PRN (19:16)
[2017-06-02] MEDS ORDERED: hydrOXYzine HCl 100 MG/2 ML SDV IM PRN (19:17)
[2017-06-02] MEDS ORDERED: Pantoprazole 40 MG Vial IVPUSH SCH (19:30)
[2017-06-02] MEDS ORDERED: buPROPion 150 MG Tab.ER PO SCH (20:45)
[2017-06-02] MEDS: Acetaminophen 500 MG Tab PO SCH (21:30)
[2017-06-02] MEDS: Tamsulosin 0.4 MG Cap.ER PO SCH (21:39)
[2017-06-02] MEDS ORDERED: Insulin Aspart 100 Units/ML 3 ML Pen ONE (21:41)
[2017-06-02] MEDS: cefOXitin 2 GM in Sodium Chloride 0.9% 50 ML IV SCH (22:01)
[2017-06-02] MEDS ORDERED: Lactated Ringers 500 ML IV ONE (23:15)
[2017-06-03] MEDS: Dextrose 5%-Lactated Ringers 1,000 ML IV SCH ×4 (00:13→21:46)
[2017-06-03] MEDS ORDERED: Lactated Ringers 500 ML IV ONE ×2 (00:30→03:15)
[2017-06-03] MEDS: Acetaminophen 500 MG Tab PO SCH ×4 (03:01→20:44)
[2017-06-03] MEDS: cefOXitin 2 GM in Sodium Chloride 0.9% 50 ML IV SCH ×2 (05:11→12:21)
[2017-06-03] MEDS ORDERED: diphenhydrAMINE 50 MG/ML SDV IVPUSH PRN (07:22)
[2017-06-03] MEDS ORDERED: Naloxone 0.4 MG/ML SDV IVPUSH PRN (07:22)
[2017-06-03] MEDS ORDERED: Naloxone 0.4 MG/ML SDV IV PRN (07:22)
[2017-06-03] MEDS ORDERED: traMADol 50 MG Tab PO PRN ×2 (07:49→12:14)
[2017-06-03] MEDS ORDERED: Alogliptin 12.5 MG TABLET PO SCH (09:00)
[2017-06-03] MEDS: Magnesium Sulfate/Water 2 GM in Premix Bag 1 BAG IV SCH ×3 (09:29→21:35)
[2017-06-03] MEDS: Bisacodyl 5 MG Tab PO SCH ×2 (09:34→20:44)
[2017-06-03] MEDS: Aspirin 325 MG Tab.EC PO SCH (09:35)
[2017-06-03] MEDS: buPROPion 150 MG Tab.SR PO SCH ×2 (09:39→20:44)
[2017-06-03] MEDS: Insulin Aspart 100 Units/ML 3 ML Pen SUBCUT SCH ×3 (12:20→20:47)
[2017-06-03] MEDS: Pantoprazole 40 MG Vial IVPUSH SCH (15:25)
[2017-06-03] MEDS: fentaNYL 2,500 MCG in Sodium Chloride 0.9% 200 ML EPIDUR SCH (17:02)
--- NOTE | 2017-06-03 17:28 | PCM.SURGPN ---
- General Info Date of Service: 06/03/17 Date of Surgery/Procedure: 06/02/17 POD#: 1 Post-Op Diagnosis: S/P extended right colon resection with partial lobectomy of liver segments III and VIII as well as wedge resection of segments VII Admission Diagnosis/Problem: Abdominal pain Functional Status: Reports: Pain Controlled, Ambulating, Urinating - Review of Systems General: Reports: Weakness (dizziness with standing ), Other (pale) HEENT: Reports: No Symptoms Pulmonary: Reports: No Symptoms Cardiovascular: Reports: No Symptoms Gastrointestinal: Reports: No Symptoms Genitourinary: Reports: No Symptoms Musculoskeletal: Reports: No Symptoms Skin: Reports: No Symptoms Neurological: Reports: No Symptoms Psychiatric: Reports: No Symptoms - Patient Data Vitals - Most Recent: Last Vital Signs Temp 37 C 06/03/17 17:00 Pulse 81 06/03/17 17:00 Resp 16 06/03/17 17:00 BP 109/55 L 06/03/17 17:00 Pulse Ox 95 06/03/17 13:17 Weight - Most Recent: 73.845 kg I&O - Last 24 Hours: Intake & Output 06/03/17 06/03/17 06/03/17 06:59 14:59 22:59 Intake Total 3585 720 1918 Output Total 207 150 Balance 3378 570 1918 Lab Results Last 24 Hrs: Laboratory Results - last 24 hr 06/02/17 06/03/17 06/03/17 Range/Units 10:10 04:07 04:21 WBC 14.2 H (4.5-11.0) K/uL RBC 2.91 L (4.30-5.90) M/uL Hgb 8.2 L D (12.0-15.0) g/dL Hct 24.9 L (40.0-54.0) % MCV 86 (80-98) fL MCH 28 (27-31) pg MCHC 33 (32-36) % Plt Count 213 (150-400) K/uL Sodium (140-148) mmol/L Potassium (3.6-5.2) mmol/L Chloride (100-108) mmol/L Carbon Dioxide (21-32) mmol/L Anion Gap (5.0-14.0) mmol/L BUN (7-18) mg/dL Creatinine (0.8-1.3) mg/dL Est Cr Clr Drug Dosing mL/min Estimated GFR (MDRD) (>60) Glucose (74-106) mg/dL Calcium (8.5-10.1) mg/dL Phosphorus (2.5-4.9) mg/dL Magnesium (1.8-2.4) mg/dL Total Bilirubin (0.2-1.0) mg/dL AST (15-37) U/L ALT (12-78) U/L Alkaline Phosphatase (46-116) U/L NT-Pro-B Natriuret Pep 257 H (5-125) pg/mL Total Protein (6.4-8.2) g/dL Albumin (3.4-5.0) g/dL Globulin (2.3-3.5) g/dL Albumin/Globulin Ratio (1.2-2.2) Blood Type O NEGATIVE Gel Antibody Screen Negative Crossmatch See Detail 06/03/17 Range/Units 04:21 WBC (4.5-11.0) K/uL RBC (4.30-5.90) M/uL Hgb (12.0-15.0) g/dL Hct (40.0-54.0) % MCV (80-98) fL MCH (27-31) pg MCHC (32-36) % Plt Count (150-400) K/uL Sodium 137 L (140-148) mmol/L Potassium 4.5 (3.6-5.2) mmol/L Chloride 104 (100-108) mmol/L Carbon Dioxide 27 (21-32) mmol/L Anion Gap 10.5 (5.0-14.0) mmol/L BUN 18 (7-18) mg/dL Creatinine 2.2 H (0.8-1.3) mg/dL Est Cr Clr Drug Dosing 28.79 mL/min Estimated GFR (MDRD) 30 L (>60) Glucose 210 H (74-106) mg/dL Calcium 8.3 L (8.5-10.1) mg/dL Phosphorus 3.0 (2.5-4.9) mg/dL Magnesium 1.2 L (1.8-2.4) mg/dL Total Bilirubin 0.3 (0.2-1.0) mg/dL AST 358 H D (15-37) U/L ALT 340 H (12-78) U/L Alkaline Phosphatase 61 (46-116) U/L NT-Pro-B Natriuret Pep 197 H (5-125) pg/mL Total Protein 5.0 L (6.4-8.2) g/dL Albumin 2.1 L (3.4-5.0) g/dL Globulin 2.9 (2.3-3.5) g/dL Albumin/Globulin Ratio 0.7 L (1.2-2.2) Blood Type Gel Antibody Screen Crossmatch Med Orders - Current: Current Medications Acetaminophen (Tylenol Extra Strength) 1,000 mg PO Q6H [facility] Last Admin: 06/03/17 15:24 Dose: 1,000 mg Alvimopan (Entereg) 12 mg PO Q12H [facility] Stop: 06/09/17 09:01 Last Admin: 06/03/17 09:30 Dose: 12 mg Aspirin (Ecotrin) 325 mg PO DAILY [facility] Last Admin: 06/03/17 09:35 Dose: 325 mg Bisacodyl (Dulcolax) 10 mg PO BID [facility] [place] Last Admin: 06/03/17 09:34 Dose: 10 mg Bupropion HCl (Wellbutrin Sr) 150 mg PO BID [facility] [place] Last Admin: 06/03/17 09:39 Dose: 150 mg Ropivacaine 36 ml/Dexamethasone 8 mg/Epinephrine HCl 0.4 mg/ Sodium Chloride 41.6 ml 0 ml NERVRT ASDIRECTED [facility] [place] Diphenhydramine HCl (Benadryl) 25 mg IVPUSH Q6H PRN PRN Reason: ITCHING Hydroxyzine HCl (Vistaril) 100 mg IM Q4H PRN PRN Reason: Pain Fentanyl 2,500 mcg/ Sodium (Chloride) 250 mls @ 0 mls/hr EPIDUR TITRATE [facility] [place]; Titrate PRN Reason: Protocol Last Admin: 06/03/17 17:02 Dose: 12 ml/hr, 12 mls/hr Dextrose/Lactated Ringer's (Dextrose 5%-Lactated Ringers) 1,000 mls @ 100 mls/ hr IV ASDIRECTED [facility] [place] Last Admin: 06/03/17 11:04 Dose: 100 mls/hr Magnesium Sulfate 2 gm/ Premix 50 mls @ 25 mls/hr IV Q6H [facility] [place] Stop: 06/06/17 05:59 Last Admin: 06/03/17 15:24 Dose: 25 mls/hr Insulin Aspart (Novolog) 0 unit SUBCUT QIDACANDBED [facility] PRN Reason: Protocol Last Admin: 06/03/17 12:20 Dose: 1 unit Naloxone HCl (Narcan) 0.1 mg IVPUSH Q5M PRN PRN Reason: RESP RATE LESS THAN 6/MINUTE Naloxone HCl (Narcan) 0.4 mg IV ASDIRECTED PRN PRN Reason: ITCHING Ondansetron HCl (Zofran) 4 mg IVPUSH Q4H PRN PRN Reason: Nausea/Vomiting Pantoprazole Sodium (Protonix Iv) 40 mg IVPUSH Q24H [facility] [place] Last Admin: 06/03/17 15:25 Dose: 40 mg Senna/Docusate Sodium (Senna Plus) 1 tab PO BID [facility] [place] Last Admin: 06/03/17 09:34 Dose: 1 tab Tamsulosin HCl (Flomax) 0.4 mg PO BEDTIME [facility] [place] Last Admin: 06/02/17 21:39 Dose: 0.4 mg Tramadol HCl (Ultram) 50 mg PO Q6H PRN PRN Reason: Pain Discontinued Medications Acetaminophen (Tylenol Extra Strength) 1,000 mg PO ONETIME ONE Stop: 06/02/17 10:31 Last Admin: 06/02/17 10:16 Dose: 1,000 mg Acetaminophen (Tylenol Extra Strength) 500 mg PO Q6H [facility] [place] Last Admin: 06/02/17 19:12 Dose: Not Given Alvimopan (Entereg) 12 mg PO ONETIME ONE Stop: 06/02/17 10:01 Last Admin: 06/02/17 10:36 Dose: 12 mg Bupropion HCl (Wellbutrin Xl) 150 mg PO DAILY [facility] [place] Last Admin: 06/02/17 21:39 Dose: 150 mg Cefoxitin Sodium (Mefoxin) Confirm Administered Dose 2 gm .ROUTE .STK-MED ONE Stop: 06/02/17 17:43 Last Admin: 06/02/17 17:45 Dose: 2 gm Dexamethasone (Dexamethasone) Confirm Administered Dose 4 mg .ROUTE .STK-MED ONE Stop: 06/02/17 12:45 Fentanyl (Sublimaze) Confirm Administered Dose 250 mcg .ROUTE .STK-MED ONE Stop: 06/02/17 12:44 Fentanyl (Sublimaze) Confirm Administered Dose 100 mcg .ROUTE .STK-[facility] ONE Stop: 06/02/17 14:58 Fentanyl (Sublimaze) Confirm Administered Dose 250 mcg .ROUTE .[facility] ONE Stop: 06/02/17 16:07 Glycopyrrolate () Confirm Administered Dose 1 mg .ROUTE .[facility] ONE Stop: 06/02/17 12:45 Cefoxitin Sodium 2 gm/ Sodium (Chloride) 50 mls @ 100 mls/hr IV ONETIME ONE Stop: 06/02/17 10:59 Last Admin: 06/02/17 14:07 Dose: 100 mls/hr Dextrose/Lactated Ringer's (Dextrose 5%-Lactated Ringers) 1,000 mls @ 100 mls/ hr IV ASDIRECTED [facility] [place] Last Admin: 06/02/17 11:13 Dose: 100 mls/hr Lidocaine HCl/Dextrose (Lidocaine 2 Gm/D5w 500 Ml) 2 gm in 500 mls @ 22.5 mls/ hr IV .[id number] [facility] [place] PRN Reason: 1.5 MG/MIN Last Admin: 06/02/17 18:41 Dose: 1.5 mg/min, 22.5 mls/hr Lactated Ringer's (Ringers, Lactated) Confirm Administered Dose 1,000 mls @ as directed .ROUTE .[facility] ONE Stop: 06/02/17 14:32 Sodium Chloride (Normal Saline) Confirm Administered Dose 10 mls @ as directed .ROUTE .[facility] ONE Stop: 06/02/17 14:57 Dextrose/Lactated Ringer's (Dextrose 5%-Lactated Ringers) 1,000 mls @ [facility] Admin: 06/03/17 05:11 Dose: 200 mls/hr Cefoxitin Sodium 2 gm/ Sodium (Chloride) 50 mls @ 100 mls/hr IV Q6H [facility] Stop: 06/03/17 11:29 Last Admin: 06/03/17 12:21 Dose: 100 mls/hr Lactated Ringer's (Ringers, Lactated) 500 mls @ 500 mls/hr IV ONETIME ONE Stop: 06/03/17 00:14 Last Admin: 06/02/17 21:30 Dose: 500 mls/hr Lactated Ringer's (Ringers, Lactated) 500 mls @ 500 mls/hr IV ONETIME ONE Stop: 06/03/17 01:29 Last Admin: 06/03/17 00:30 Dose: 500 mls/hr Lactated Ringer's (Ringers, Lactated) 500 mls @ 500 mls/hr IV ONETIME ONE Stop: 06/03/17 04:14 Last Admin: 06/03/17 03:50 Dose: 500 mls/hr Insulin Aspart (Novolog) 0 unit SUBCUT QIDACANDBED [facility] [place] PRN Reason: Protocol Insulin Aspart (Novolog) Confirm Administered Dose 300 unit .ROUTE .STK-MED ONE Stop: 06/02/17 21:42 Last Admin: 06/02/17 21:47 Dose: Not Given Insulin Aspart (Novolog) 0 unit SUBCUT QIDACANDBED [facility] PRN Reason: Protocol Last Admin: 06/03/17 08:10 Dose: Not Given Ketamine HCl (Ketalar) 33 mg IV ASDIRECTED [facility] Lidocaine HCl (Xylocaine 2%) 100 mg IVPUSH ONETIME ONE Stop: 06/02/17 13:46 Last Admin: 06/02/17 18:58 Dose: Not Given Meropenem (Merrem) Confirm Administered Dose 500 mg .ROUTE .STK-MED ONE Stop: 06/02/17 13:22 Last Admin: 06/02/17 15:18 Dose: 500 mg Neostigmine Methylsulfate (Neostigmine) Confirm Administered Dose 5 mg .ROUTE .STK-MED ONE Stop: 06/02/17 12:45 Ondansetron HCl (Zofran) Confirm Administered Dose 4 mg .ROUTE .STK-MED ONE Stop: 06/02/17 12:45 Pantoprazole Sodium (Protonix Iv) 40 mg IVPUSH DAILY [facility] [place] Last Admin: 06/02/17 21:30 Dose: 40 mg Phenylephrine HCl (Angel-Synephrine) Confirm Administered Dose 10 mg .ROUTE .STK- MED ONE Stop: 06/02/17 14:47 Propofol (Diprivan 20 Ml) Confirm Administered Dose 200 mg .ROUTE .STK-MED ONE Stop: 06/02/17 12:45 Rocuronium Odd (Zemuron) Confirm Administered Dose 50 mg .ROUTE .STK-MED ONE Stop: 06/02/17 12:45 Succinylcholine Chloride (Succinylcholine In Ns Pf) Confirm Administered Dose 200 mg .ROUTE .STK-MED ONE Stop: 06/02/17 12:45 Tramadol HCl (Ultram) 50 mg PO Q4H PRN PRN Reason: Pain - Exam Wound/Incisions: Healing Well General: Alert, Oriented, Cooperative, No Acute Distress HEENT: Pupils Equal Neck: Supple Lungs: Clear to Auscultation, Normal Respiratory Effort Cardiovascular: Regular Rate, Regular Rhythm GI/Abdominal Exam: Normal Bowel Sounds, Soft, Non-Tender, No Organomegaly, No Distention, No Abnormal Bruit, No Mass, Pelvis Stable Extremities: Non-Tender, No Pedal Edema Skin: Warm, Dry, Intact Neurological: No New Focal Deficit Psy/Mental Status: Alert, Normal Affect, Normal Mood - Problem List Review Problem List Initiated/Reviewed/Updated: Yes - My Orders Last 24 Hours: Active Orders 24 hr Category Date Time Status Ambulate [RC] QID Care 06/02/17 18:57 Active Communication Order [RC] PRN Care 06/02/17 20:16 Active Communication Order [RC] ROUTINE Care 06/02/17 18:56 Active Drain Management [RC] Q12H Care 06/02/17 18:58 Active Rodrigues Catheter Insertion [Insert Urinary Catheter] [OM. Care 06/02/17 19:00 Ordered PC] Per Unit Routine Incentive Breathing [RT Incentive Spirometry] [RC] Care 06/02/17 18:58 Active Q1HWA Intake and Output [RC] Q12H Care 06/02/17 18:59 Active Overnight Pulse Oximetry [RC] Click to Edit Care 06/02/17 18:57 Active Telemetry Monitoring [Cardiac Monitoring] [RC] .As Care 06/02/17 18:57 Active Directed Turn, Cough, Deep Breathe [RC] Q1HWA Care 06/02/17 18:58 Active Up to Chair [RC] QID Care 06/02/17 18:57 Active Urinary Catheter Assessment [RC] Q12H Care 06/02/17 18:59 Active Verify Patient Consent Obtain [RC] ASDIRECTED Care 06/03/17 07:50 Active NPO After Midnight [Nothing per Oral After Midnight Diet 06/04/17 Breakfast Active Diet] [DIET] Regular Diet [DIET] Diet 06/03/17 Breakfast Active CBC W/O DIFF,HEMOGRAM [HEME] Timed Lab 06/04/17 04:00 Ordered COMPREHENSIVE METABOLIC PN,CMP [CHEM] Timed Lab 06/04/17 04:00 Ordered GLUCOSE POC LAB TO COLLECT [POC] QIDACANDBED Lab 06/03/17 21:00 Ordered PATIENT RETYPE [BBK] Stat Lab 06/03/17 04:07 Results PHOSPHORUS [CHEM] Timed Lab 06/04/17 04:00 Ordered PRO B-TYPE NATRIUR PEPT,BNPPRO [CHEM] Timed Lab 06/04/17 04:00 Ordered RED BLOOD CELLS LP [BBK] Routine Lab 06/03/17 04:07 Results TYPE AND SCREEN [BBK] Stat Lab 06/03/17 04:07 Results Acetaminophen [Tylenol Extra Strength] Med 06/02/17 21:00 Active 1,000 mg PO Q6H Alogliptin Benzoate [Alogliptin] Med 06/03/17 09:00 Active 6.25 mg PO DAILY Alvimopan [Entereg] Med 06/02/17 21:00 Active 12 mg PO Q12H Aspirin [Ecotrin] Med 06/03/17 09:00 Active 325 mg PO DAILY Bisacodyl [Dulcolax] Med 06/03/17 09:00 Active 10 mg PO BID Dextrose 5%-Lactated Ringers 1,000 ml Med 06/03/17 07:52 Active IV ASDIRECTED Docusate Sodium/Sennosides [Senna Plus] Med 06/03/17 09:00 Active 1 tab PO BID Insulin Aspart [NovoLOG] Med 06/03/17 11:00 Active 0 unit SUBCUT QIDACANDBED Magnesium Sulfate/Water [Magnesium Sulfate 2 GM in Med 06/03/17 10:00 Active Water 50 ML] 2 gm Premix Bag 1 bag IV Q6H Naloxone [Narcan] Med 06/03/17 07:22 Active 0.4 mg IV ASDIRECTED PRN Ondansetron [Zofran] Med 06/02/17 19:16 Active 4 mg IVPUSH Q4H PRN Pantoprazole [ProTONIX IV] Med 06/03/17 16:00 Active 40 mg IVPUSH Q24H Ropivacaine [Naropin 0.5%] 36 ml Med 06/04/17 07:15 Active Dexamethasone 8 mg EPINEPHrine [Adrenalin] 0.4 mg Sodium Chloride 0.9% [Normal Saline] 41.6 ml NERVRT ASDIRECTED Tamsulosin [Flomax] Med 06/02/17 21:00 Active 0.4 mg PO BEDTIME buPROPion [Wellbutrin SR] Med 06/03/17 09:00 Active 150 mg PO BID diphenhydrAMINE [Benadryl] Med 06/03/17 07:22 Active 25 mg IVPUSH Q6H PRN hydrOXYzine HCl [Vistaril] Med 06/02/17 19:17 Active 100 mg IM Q4H PRN traMADol [Ultram] Med 06/03/17 12:14 Active 50 mg PO Q6H PRN Abdominal Binder [OM.PC] Routine Oth 06/02/17 18:59 Ordered Pulse Oximetry Continuous Monitoring [OM.PC] Routine Oth 06/02/17 18:57 Ordered Transfuse Red Blood Cells [COMM] Stat Oth 06/03/17 07:30 Ordered Medication Orders Acetaminophen (Tylenol Extra Strength) 1,000 mg PO Q6H [facility] Last Admin: 06/03/17 15:24 Dose: 1,000 mg Admin: 06/03/17 09:29 Dose: 1,000 mg Admin: 06/03/17 03:01 Dose: 1,000 mg Admin: 06/02/17 21:30 Dose: 1,000 mg Alvimopan (Entereg) 12 mg PO Q12H [facility] Stop: 06/09/17 09:01 Last Admin: 06/03/17 09:30 Dose: 12 mg Admin: 06/02/17 21:31 Dose: 12 mg Aspirin (Ecotrin) 325 mg PO DAILY [facility] [place] Last Admin: 06/03/17 09:35 Dose: 325 mg Bisacodyl (Dulcolax) 10 mg PO BID [facility] [place] Last Admin: 06/03/17 09:34 Dose: 10 mg Bupropion HCl (Wellbutrin Sr) 150 mg PO BID [facility] [place] Last Admin: 06/03/17 09:39 Dose: 150 mg Ropivacaine 36 ml/Dexamethasone 8 mg/Epinephrine HCl 0.4 mg/ Sodium Chloride 41.6 ml 0 ml NERVRT ASDIRECTED [facility] [place] Diphenhydramine HCl (Benadryl) 25 mg IVPUSH Q6H PRN PRN Reason: ITCHING Hydroxyzine HCl (Vistaril) 100 mg IM Q4H PRN PRN Reason: Pain Fentanyl 2,500 mcg/ Sodium (Chloride) 250 mls @ 0 mls/hr EPIDUR TITRATE [facility] [place]; Titrate PRN Reason: Protocol Last Admin: 06/03/17 17:02 Dose: 12 ml/hr, 12 mls/hr Titration: 06/03/17 15:20 Dose: 12 ml/hr, 12 mls/hr Admin: 06/02/17 18:30 Dose: 12 ml/hr, 12 mls/hr Dextrose/Lactated Ringer's (Dextrose 5%-Lactated Ringers) 1,000 mls @ 100 mls/ hr IV ASDIRECTED [facility] [place] Last Admin: 06/03/17 11:04 Dose: 100 mls/hr Magnesium Sulfate 2 gm/ Premix 50 mls @ 25 mls/hr IV Q6H [facility] [place] Stop: 06/06/17 05:59 Last Admin: 06/03/17 15:24 Dose: 25 mls/hr Infusion: 06/03/17 11:29 Dose: 25 mls/hr Admin: 06/03/17 09:29 Dose: 25 mls/hr Insulin Aspart (Novolog) 0 unit SUBCUT QIDACANDBED [facility] [place] PRN Reason: Protocol Last Admin: 06/03/17 12:20 Dose: 1 unit Naloxone HCl (Narcan) 0.1 mg IVPUSH Q5M PRN PRN Reason: RESP RATE LESS THAN 6/MINUTE Naloxone HCl (Narcan) 0.4 mg IV ASDIRECTED PRN PRN Reason: ITCHING Ondansetron HCl (Zofran) 4 mg IVPUSH Q4H PRN PRN Reason: Nausea/Vomiting Pantoprazole Sodium (Protonix Iv) 40 mg IVPUSH Q24H [facility] Last Admin: 06/03/17 15:25 Dose: 40 mg Senna/Docusate Sodium (Senna Plus) 1 tab PO BID [facility] Last Admin: 06/03/17 09:34 Dose: 1 tab Tamsulosin HCl (Flomax) 0.4 mg PO BEDTIME [facility] [place] Last Admin: 06/02/17 21:39 Dose: 0.4 mg Tramadol HCl (Ultram) 50 mg PO Q6H PRN PRN Reason: Pain - Plan Plan (Free Text/Narrative):: Pollo Perkins is a 72 year old male who is POD # 1 from extended right colon resection with partial lobectomy of liver segments III and VIII as well as wedge resection of segments VIII. The patient is complaining of some weakness. He is also pale on physical exam. He is currently in no pain. He had no other complaints and the rest of his exam was benign. The patient was found to anemic this morning at 8.2. He also had a leukocytosis at 14.2. His magnesium was low at 1.2. His creatinine was high at 2.2 a change from yesterday which was 2.0. His liver enzymes were elevated which is to be expected given the lobectomies. The patient will have delayed primary closure of his midline abdominal wound tomorrow. He shall be NPO at midnight tonight. He had no further concerns or questions at this time. - S/P Extended right colectomy- The patient is currently in no pain. He will most likely need to start some chemotherapy given the colon mass found on resection as well as liver nodules. The patient was informed of this and agreed. - Continue Epidural for pain - PPI 40 mg Daily - Tramadol Q6 for pain # Anemia/Acute kidney injury- The patient did have a bump in his creatinine to 2.2. Yesterday, it was 2.0, however a baseline is not known. The patient is already on 200ml/hr of D5/LR to try compensate. With a significantly low hemoglobine at 8.2 the patient will get 2 units packed RBCs to help with kidney perfusion as well as dizziness/weakness and pale appearance. # Leukocytosis- most likely related to surgery - will continue to trend # hypomagnesia- low at 1.2 - 25ml/hr mag sulfate # Chronic issues: - Continue home medications VTE PPX- Pt advised to continue moving around. SCD's in bed. Pneumonia PPX- Pt advised to walk around and use incentive spirometry 10 times per hour Code status: Full Fluids: 200 ml/hr LR Diet: Full diet/NPO after midnight Nausea: Zofran Q4hr PRN Bowel regimen: Senna + and Dulcolax Dispo: Patient will likely go home in 2-3 days. This chart was scribed for Dr. Emmanuel by: Davian Woody, MS3 Pg # [phone]
[2017-06-03] MEDS ORDERED: Furosemide 20 MG/2 ML VIAL IVPUSH ONE ×2 (19:10→23:59)
[2017-06-03] MEDS: Tamsulosin 0.4 MG Cap.ER PO SCH (20:44)
[2017-06-04] MEDS ORDERED: Furosemide 20 MG/2 ML VIAL ONE (00:09)
[2017-06-04] MEDS: Acetaminophen 500 MG Tab PO SCH ×4 (02:15→21:55)
[2017-06-04] MEDS: Magnesium Sulfate/Water 2 GM in Premix Bag 1 BAG IV SCH ×4 (03:27→21:56)
[2017-06-04] MEDS: Dextrose 5%-Lactated Ringers 1,000 ML IV SCH ×2 (05:57→16:53)
[2017-06-04] MEDS ORDERED: Meropenem 500 MG SDV ONE (07:10)
[2017-06-04] MEDS ORDERED: Bupivacaine 0.5% 50 ML MDV ONE (07:10)
[2017-06-04] MEDS ORDERED: Lidocaine 1% with EPINEPHrine 1:100,000 50 ML MDV ONE (07:10)
[2017-06-04] MEDS ORDERED: Ropivacaine 36 ML, Dexamethasone 8 MG, EPINEPHrine 0.4 MG, Sodium Chloride 0.9% 41.6 ML NERVRT SCH ×4 (07:15)
[2017-06-04] MEDS ORDERED: Midazolam 1 MG/ML 2 ML SDV ONE (07:20)
[2017-06-04] MEDS ORDERED: Propofol 200 MG/20 ML SDV ONE (07:20)
[2017-06-04] MEDS ORDERED: fentaNYL 100 MCG/2 ML SDV ONE (07:20)
[2017-06-04] MEDS: Clindamycin Phosphate 900 MG in Sodium Chloride 0.9% 100 ML IV SCH ×2 (07:51→16:53)
[2017-06-04] MEDS: Insulin Aspart 100 Units/ML 3 ML Pen SUBCUT SCH ×4 (08:43→21:53)
--- NOTE | 2017-06-04 09:26 | PCM.SURGPN ---
- General Info Date of Service: 06/04/17 Date of Surgery/Procedure: 06/02/17 POD#: 2 - Patient Data Vitals - Most Recent: Last Vital Signs Temp 36.9 C 06/04/17 09:00 Pulse 102 H 06/04/17 09:00 Resp 16 06/04/17 09:00 BP 116/63 06/04/17 09:00 Pulse Ox 95 06/04/17 09:00 Weight - Most Recent: 73.845 kg I&O - Last 24 Hours: Intake & Output 06/03/17 06/04/17 06/04/17 22:59 06:59 14:59 Intake Total 2668 1808 Output Total 430 725 50 Balance 2238 1083 -50 Lab Results Last 24 Hrs: Laboratory Results - last 24 hr 06/02/17 06/03/17 06/04/17 Range/Units 10:10 04:07 04:20 WBC 14.5 H (4.5-11.0) K/uL RBC 3.44 L (4.30-5.90) M/uL Hgb 10.0 L (12.0-15.0) g/dL Hct 28.8 L (40.0-54.0) % MCV 84 (80-98) fL MCH 29 (27-31) pg MCHC 35 (32-36) % Plt Count 181 (150-400) K/uL Sodium (140-148) mmol/L Potassium (3.6-5.2) mmol/L Chloride (100-108) mmol/L Carbon Dioxide (21-32) mmol/L Anion Gap (5.0-14.0) mmol/L BUN (7-18) mg/dL Creatinine (0.8-1.3) mg/dL Est Cr Clr Drug Dosing mL/min Estimated GFR (MDRD) (>60) Glucose (74-106) mg/dL Calcium (8.5-10.1) mg/dL Phosphorus (2.5-4.9) mg/dL Total Bilirubin (0.2-1.0) mg/dL AST (15-37) U/L ALT (12-78) U/L Alkaline Phosphatase (46-116) U/L NT-Pro-B Natriuret Pep (5-125) pg/mL Total Protein (6.4-8.2) g/dL Albumin (3.4-5.0) g/dL Globulin (2.3-3.5) g/dL Albumin/Globulin Ratio (1.2-2.2) Carcinoembryonic Ag 6.2 H (0.0-3.7) ng/mL Blood Type O NEGATIVE Gel Antibody Screen Negative Crossmatch See Detail 06/04/17 Range/Units 04:20 WBC (4.5-11.0) K/uL RBC (4.30-5.90) M/uL Hgb (12.0-15.0) g/dL Hct (40.0-54.0) % MCV (80-98) fL MCH (27-31) pg MCHC (32-36) % Plt Count (150-400) K/uL Sodium 134 L (140-148) mmol/L Potassium 4.1 (3.6-5.2) mmol/L Chloride 101 (100-108) mmol/L Carbon Dioxide 26 (21-32) mmol/L Anion Gap 11.1 (5.0-14.0) mmol/L BUN 16 (7-18) mg/dL Creatinine 1.6 H (0.8-1.3) mg/dL Est Cr Clr Drug Dosing 39.49 mL/min Estimated GFR (MDRD) 43 L (>60) Glucose 167 H (74-106) mg/dL Calcium 7.9 L (8.5-10.1) mg/dL Phosphorus 2.5 (2.5-4.9) mg/dL Total Bilirubin 0.6 D (0.2-1.0) mg/dL AST 182 H (15-37) U/L ALT 281 H (12-78) U/L Alkaline Phosphatase 71 (46-116) U/L NT-Pro-B Natriuret Pep 244 H (5-125) pg/mL Total Protein 5.2 L (6.4-8.2) g/dL Albumin 2.6 L (3.4-5.0) g/dL Globulin 2.6 (2.3-3.5) g/dL Albumin/Globulin Ratio 1.0 L (1.2-2.2) Carcinoembryonic Ag (0.0-3.7) ng/mL Blood Type Gel Antibody Screen Crossmatch Med Orders - Current: Current Medications Acetaminophen (Tylenol Extra Strength) 1,000 mg PO Q6H [facility] Last Admin: 06/04/17 02:15 Dose: Not Given Alvimopan (Entereg) 12 mg PO Q12H [facility] Stop: 06/09/17 09:01 Last Admin: 06/03/17 20:44 Dose: 12 mg Aspirin (Ecotrin) 325 mg PO DAILY [facility] Last Admin: 06/03/17 09:35 Dose: 325 mg Bisacodyl (Dulcolax) 10 mg PO BID [facility] Last Admin: 06/03/17 20:44 Dose: 10 mg Bupropion HCl (Wellbutrin Sr) 150 mg PO BID [facility] Last Admin: 06/03/17 20:44 Dose: 150 mg Ropivacaine 36 ml/Dexamethasone 8 mg/Epinephrine HCl 0.4 mg/ Sodium Chloride 41.6 ml 0 ml NERVRT ASDIRECTED [facility] Diphenhydramine HCl (Benadryl) 25 mg IVPUSH Q6H PRN PRN Reason: ITCHING Erythromycin Ethylsuccinate (Eryped 400) 250 mg PO Q8H [facility] Hydroxyzine HCl (Vistaril) 100 mg IM Q4H PRN PRN Reason: Pain Dextrose/Lactated Ringer's (Dextrose 5%-Lactated Ringers) 1,000 mls @ 100 mls/ hr IV ASDIRECTED [facility] Last Admin: 06/04/17 05:57 Dose: 100 mls/hr Magnesium Sulfate 2 gm/ Premix 50 mls @ 25 mls/hr IV Q6H [facility] Stop: 06/06/17 05:59 Last Admin: 06/04/17 03:27 Dose: 25 mls/hr Clindamycin Phosphate 900 mg/ (Sodium Chloride) 106 mls @ 200 mls/hr IV Q8H [facility] Stop: 06/09/17 00:32 Last Admin: 06/04/17 07:51 Dose: 200 mls/hr Insulin Aspart (Novolog) 0 unit SUBCUT QIDACANDBED [facility] PRN Reason: Protocol Last Admin: 06/04/17 08:43 Dose: 1 unit Metoclopramide HCl (Reglan) 10 mg IVPUSH Q8H [facility] Naloxone HCl (Narcan) 0.1 mg IVPUSH Q5M PRN PRN Reason: RESP RATE LESS THAN 6/MINUTE Naloxone HCl (Narcan) 0.4 mg IV ASDIRECTED PRN PRN Reason: ITCHING Ondansetron HCl (Zofran) 4 mg IVPUSH Q4H PRN PRN Reason: Nausea/Vomiting Pantoprazole Sodium (Protonix Iv) 40 mg IVPUSH Q24H [facility] Last Admin: 06/03/17 15:25 Dose: 40 mg Senna/Docusate Sodium (Senna Plus) 1 tab PO BID [facility] Last Admin: 06/03/17 20:44 Dose: 1 tab Tamsulosin HCl (Flomax) 0.4 mg PO BEDTIME [facility] Last Admin: 06/03/17 20:44 Dose: 0.4 mg Tramadol HCl (Ultram) 50 mg PO Q6H PRN PRN Reason: Pain Discontinued Medications Acetaminophen (Tylenol Extra Strength) 1,000 mg PO ONETIME ONE Stop: 06/02/17 10:31 Last Admin: 06/02/17 10:16 Dose: 1,000 mg Acetaminophen (Tylenol Extra Strength) 500 mg PO Q6H [facility] Last Admin: 06/02/17 19:12 Dose: Not Given Alvimopan (Entereg) 12 mg PO ONETIME ONE Stop: 06/02/17 10:01 Last Admin: 06/02/17 10:36 Dose: 12 mg Bupivacaine HCl (Marcaine 0.5%) 50 ml .ROUTE .STK-MED ONE Stop: 06/04/17 07:11 Last Admin: 06/04/17 07:26 Dose: 15 ml Bupropion HCl (Wellbutrin Xl) 150 mg PO DAILY [facility] Last Admin: 06/02/17 21:39 Dose: 150 mg Cefoxitin Sodium (Mefoxin) Confirm Administered Dose 2 gm .ROUTE .STK-MED ONE Stop: 06/02/17 17:43 Last Admin: 06/02/17 17:45 Dose: 2 gm Dexamethasone (Dexamethasone) Confirm Administered Dose 4 mg .ROUTE .STK-MED ONE Stop: 06/02/17 12:45 Fentanyl (Sublimaze) Confirm Administered Dose 250 mcg .ROUTE .STK-MED ONE Stop: 06/02/17 12:44 Fentanyl (Sublimaze) Confirm Administered Dose 100 mcg .ROUTE .STK-MED ONE Stop: 06/02/17 14:58 Fentanyl (Sublimaze) Confirm Administered Dose 250 mcg .ROUTE .STK-MED ONE Stop: 06/02/17 16:07 Fentanyl (Sublimaze) Confirm Administered Dose 100 [facility] Stop: 06/04/17 07:21 Furosemide (Lasix) 10 mg IVPUSH ONETIME ONE Stop: 06/03/17 19:11 Last Admin: 06/03/17 19:56 Dose: 10 mg Furosemide (Lasix) 10 mg IVPUSH ONETIME ONE Stop: 06/04/17 00:00 Last Admin: 06/04/17 00:13 Dose: 10 mg Furosemide (Lasix) Confirm Administered Dose 20 mg .[facility] Stop: 06/04/17 00:10 Last Admin: 06/04/17 08:40 Dose: Not Given Glycopyrrolate () Confirm Administered Dose 1 mg .ROUTE .[facility] ONE Stop: 06/02/17 12:45 Cefoxitin Sodium 2 gm/ Sodium (Chloride) 50 mls @ 100 mls/hr IV ONETIME ONE Stop: 06/02/17 10:59 Last Admin: 06/02/17 14:07 Dose: 100 mls/hr Dextrose/Lactated Ringer's (Dextrose 5%-Lactated Ringers) 1,000 mls @ 100 mls/ hr IV ASDIRECTED [facility] Last Admin: 06/02/17 11:13 Dose: 100 mls/hr Lidocaine HCl/Dextrose (Lidocaine 2 Gm/D5w 500 Ml) 2 gm in 500 mls @ 22.5 mls/ hr IV .[id number] [facility] PRN Reason: 1.5 MG/MIN Last Admin: 06/02/17 18:41 Dose: 1.5 mg/min, 22.5 mls/hr Fentanyl 2,500 mcg/ Sodium (Chloride) 250 mls @ 0 mls/hr EPIDUR TITRATE [facility]; Titrate PRN Reason: Protocol Last Admin: 06/03/17 17:02 Dose: 12 ml/hr, 12 mls/hr Lactated Ringer's (Ringers, Lactated) Confirm Administered Dose 1,000 mls @ as directed .ROUTE .[facility] Stop: 06/02/17 14:32 Sodium Chloride (Normal Saline) Confirm Administered Dose 10 mls @ as directed .ROUTE .[facility] Stop: 06/02/17 14:57 Dextrose/Lactated Ringer's (Dextrose 5%-Lactated Ringers) 1,000 mls @ 200 mls/ hr IV ASDIRECTED [facility] Last Admin: 06/03/17 05:11 Dose: 200 mls/hr Cefoxitin Sodium 2 gm/ Sodium (Chloride) 50 mls @ 100 mls/hr IV Q6H [facility] Stop: 06/03/17 11:29 Last Admin: 06/03/17 12:21 Dose: 100 mls/hr Lactated Ringer's (Ringers, Lactated) 500 mls @ 500 mls/hr IV ONETIME ONE Stop: 06/03/17 00:14 Last Admin: 06/02/17 21:30 Dose: 500 mls/hr Lactated Ringer's (Ringers, Lactated) 500 mls @ 500 mls/hr IV ONETIME ONE Stop: 06/03/17 01:29 Last Admin: 06/03/17 00:30 Dose: 500 mls/hr Lactated Ringer's (Ringers, Lactated) 500 mls @ 500 mls/hr IV ONETIME ONE Stop: 06/03/17 04:14 Last Admin: 06/03/17 03:50 Dose: 500 mls/hr Insulin Aspart (Novolog) 0 unit SUBCUT QIDACANDBED [facility] PRN Reason: Protocol Insulin Aspart (Novolog) Confirm Administered Dose 300 unit .ROUTE .STK-MED ONE Stop: 06/02/17 21:42 Last Admin: 06/02/17 21:47 Dose: Not Given Insulin Aspart (Novolog) 0 unit SUBCUT QIDACANDBED [facility] PRN Reason: Protocol Last Admin: 06/03/17 08:10 Dose: Not Given Ketamine HCl (Ketalar) 33 mg IV ASDIRECTED [facility] Lidocaine HCl (Xylocaine 2%) 100 mg IVPUSH ONETIME ONE Stop: 06/02/17 13:46 Last Admin: 06/02/17 18:58 Dose: Not Given Lidocaine/Epinephrine (Xylocaine 1% With Epinephrine 1:100,000) 50 ml .ROUTE .STK-MED ONE Stop: 06/04/17 07:11 Last Admin: 06/04/17 07:26 Dose: 15 ml Meropenem (Merrem) Confirm Administered Dose 500 mg .ROUTE .STK-MED ONE Stop: 06/02/17 13:22 Last Admin: 06/02/17 15:18 Dose: 500 mg Meropenem (Merrem) 500 mg .ROUTE .STK-MED ONE Stop: 06/04/17 07:11 Last Admin: 06/04/17 07:30 Dose: 500 mg Midazolam HCl (Versed 1 Mg/Ml) Confirm Administered Dose 2 mg .ROUTE .STK-MED ONE Stop: 06/04/17 07:21 Neostigmine Methylsulfate (Neostigmine) Confirm Administered Dose 5 mg .ROUTE .STK-MED ONE Stop: 06/02/17 12:45 Ondansetron HCl (Zofran) Confirm Administered Dose 4 mg .ROUTE .STK-MED ONE Stop: 06/02/17 12:45 Pantoprazole Sodium (Protonix Iv) 40 mg IVPUSH DAILY [facility] Last Admin: 06/02/17 21:30 Dose: 40 mg Phenylephrine HCl (Angel-Synephrine) Confirm Administered Dose 10 mg .ROUTE .STK- MED ONE Stop: 06/02/17 14:47 Propofol (Diprivan 20 Ml) Confirm Administered Dose 200 mg .ROUTE .STK-MED ONE Stop: 06/02/17 12:45 Propofol (Diprivan 20 Ml) Confirm Administered Dose 200 mg .ROUTE .STK-MED ONE Stop: 06/04/17 07:21 Rocuronium [place] (Zemuron) Confirm Administered Dose 50 mg .ROUTE .STK-MED ONE Stop: 06/02/17 12:45 Succinylcholine Chloride (Succinylcholine In Ns Pf) Confirm Administered Dose 200 mg .ROUTE .STK-MED ONE Stop: 06/02/17 12:45 Tramadol HCl (Ultram) 50 mg PO Q4H PRN PRN Reason: Pain - Problem List Review Problem List Initiated/Reviewed/Updated: Yes - My Orders Last 24 Hours: Active Orders 24 hr Category Date Time Status Communication Order [RC] ASDIRECTED Care 06/03/17 19:12 Active Communication Order [RC] ROUTINE Care 06/04/17 08:31 Active DC Rodrigues Catheter [Urinary Catheter Removal] [RC] Per Care 06/04/17 08:32 Active Unit Routine NPO After Midnight [Nothing per Oral After Midnight Diet 06/04/17 Breakfast Active Diet] [DIET] Regular Diet [DIET] Diet 06/04/17 Lunch Active Guide Intraoperative [US] Routine Exams 06/04/17 Taken CBC W/O DIFF,HEMOGRAM [HEME] DAILY Lab 06/05/17 04:00 Ordered CBC W/O DIFF,HEMOGRAM [HEME] DAILY Lab 06/06/17 04:00 Ordered COMPREHENSIVE METABOLIC PN,CMP [CHEM] DAILY Lab 06/05/17 04:00 Ordered COMPREHENSIVE METABOLIC PN,CMP [CHEM] DAILY Lab 06/06/17 04:00 Ordered GLUCOSE POC LAB TO COLLECT [POC] QIDACANDBED Lab 06/04/17 11:30 Ordered GLUCOSE POC LAB TO COLLECT [POC] QIDACANDBED Lab 06/04/17 16:30 Ordered GLUCOSE POC LAB TO COLLECT [POC] QIDACANDBED Lab 06/04/17 21:00 Ordered PHOSPHORUS [CHEM] DAILY Lab 06/05/17 04:00 Ordered PHOSPHORUS [CHEM] DAILY Lab 06/06/17 04:00 Ordered PRO B-TYPE NATRIUR PEPT,BNPPRO [CHEM] DAILY Lab 06/05/17 04:00 Ordered PRO B-TYPE NATRIUR PEPT,BNPPRO [CHEM] DAILY Lab 06/06/17 04:00 Ordered Alogliptin Benzoate [Alogliptin] Med 06/03/17 09:00 Active 6.25 mg PO DAILY Aspirin [Ecotrin] Med 06/03/17 09:00 Active 325 mg PO DAILY Bisacodyl [Dulcolax] Med 06/03/17 09:00 Active 10 mg PO BID Clindamycin Phosphate [Cleocin] 900 mg Med 06/04/17 08:00 Active Sodium Chloride 0.9% [Normal Saline] 100 ml IV Q8H Docusate Sodium/Sennosides [Senna Plus] Med 06/03/17 09:00 Active 1 tab PO BID Erythromycin Ethylsuccinate [Eryped 400] Med 06/04/17 14:00 Active 250 mg PO Q8H Insulin Aspart [NovoLOG] Med 06/03/17 11:00 Active 0 unit SUBCUT QIDACANDBED Magnesium Sulfate/Water [Magnesium Sulfate 2 GM in Med 06/03/17 10:00 Active Water 50 ML] 2 gm Premix Bag 1 bag IV Q6H Metoclopramide [Reglan] Med 06/04/17 10:00 Active 10 mg IVPUSH Q8H Pantoprazole [ProTONIX IV] Med 06/03/17 16:00 Active 40 mg IVPUSH Q24H Ropivacaine [Naropin 0.5%] 36 ml Med 06/04/17 07:15 Active Dexamethasone 8 mg EPINEPHrine [Adrenalin] 0.4 mg Sodium Chloride 0.9% [Normal Saline] 41.6 ml NERVRT ASDIRECTED buPROPion [Wellbutrin SR] Med 06/03/17 09:00 Active 150 mg PO BID traMADol [Ultram] Med 06/03/17 12:14 Active 50 mg PO Q6H PRN Drain Removal [OM.PC] Routine Oth 06/04/17 08:32 Ordered Ultrasound Chest Marking [OM.PC] Routine Oth 06/04/17 07:09 Ordered Medication Orders Acetaminophen (Tylenol Extra Strength) 1,000 mg PO Q6H [facility] Last Admin: 06/04/17 02:15 Dose: Admin: 06/03/17 20:44 Dose: 1,000 mg Admin: 06/03/17 15:24 Dose: 1,000 mg Admin: 06/03/17 09:29 Dose: 1,000 mg Admin: 06/03/17 03:01 Dose: 1,000 mg Admin: 06/02/17 21:30 Dose: 1,000 mg Alvimopan (Entereg) 12 mg PO Q12H [facility] Stop: 06/09/17 09:01 Last Admin: 06/03/17 20:44 Dose: 12 mg Admin: 06/03/17 09:30 Dose: 12 mg Admin: 06/02/17 21:31 Dose: 12 mg Aspirin (Ecotrin) 325 mg PO DAILY [facility] Last Admin: 06/03/17 09:35 Dose: 325 mg Bisacodyl (Dulcolax) 10 mg PO BID [facility] Last Admin: 06/03/17 20:44 Dose: 10 mg Admin: 06/03/17 09:34 Dose: 10 mg Bupropion HCl (Wellbutrin Sr) 150 mg PO BID [facility] Last Admin: 06/03/17 20:44 Dose: 150 mg Admin: 06/03/17 09:39 Dose: 150 mg Ropivacaine 36 ml/Dexamethasone 8 mg/Epinephrine HCl 0.4 mg/ Sodium Chloride 41.6 ml 0 ml NERVRT ASDIRECTED [facility] Diphenhydramine HCl (Benadryl) 25 mg IVPUSH Q6H PRN PRN Reason: ITCHING Erythromycin Ethylsuccinate (Eryped 400) 250 mg PO Q8H [facility] Hydroxyzine HCl (Vistaril) 100 mg IM Q4H PRN PRN Reason: Pain Dextrose/Lactated Ringer's (Dextrose 5%-Lactated Ringers) 1,000 mls @ 100 mls/ hr IV ASDIRECTED [facility] Last Admin: 06/04/17 05:57 Dose: 100 mls/hr Infusion: 06/04/17 05:57 Dose: 100 mls/hr Admin: 06/03/17 21:46 Dose: 100 mls/hr Infusion: 06/03/17 21:04 Dose: 100 mls/hr Admin: 06/03/17 11:04 Dose: 100 mls/hr Magnesium Sulfate 2 gm/ Premix 50 mls @ 25 mls/hr IV Q6H [facility] Stop: 06/06/17 05:59 Last Admin: 06/04/17 03:27 Dose: 25 mls/hr Infusion: 06/03/17 23:35 Dose: 25 mls/hr Admin: 06/03/17 21:35 Dose: 25 mls/hr Infusion: 06/03/17 17:24 Dose: 25 mls/hr Admin: 06/03/17 15:24 Dose: 25 mls/hr Infusion: 06/03/17 11:29 Dose: 25 mls/hr Admin: 06/03/17 09:29 Dose: 25 mls/hr Clindamycin Phosphate 900 mg/ (Sodium Chloride) 106 mls @ 200 mls/hr IV Q8H [facility] Stop: 06/09/17 00:32 Last Admin: 06/04/17 07:51 Dose: 200 mls/hr Insulin Aspart (Novolog) 0 unit SUBCUT QIDACANDBED [facility] PRN Reason: Protocol Last Admin: 06/04/17 08:43 Dose: 1 unit Admin: 06/03/17 20:47 Dose: Admin: 06/03/17 17:13 Dose: 1 unit Admin: 06/03/17 12:20 Dose: 1 unit Metoclopramide HCl (Reglan) 10 mg IVPUSH Q8H [facility] Naloxone HCl (Narcan) 0.1 mg IVPUSH Q5M PRN PRN Reason: RESP RATE LESS THAN 6/MINUTE Naloxone HCl (Narcan) 0.4 mg IV ASDIRECTED PRN PRN Reason: ITCHING Ondansetron HCl (Zofran) 4 mg IVPUSH Q4H PRN PRN Reason: Nausea/Vomiting Pantoprazole Sodium (Protonix Iv) 40 mg IVPUSH Q24H [facility] Last Admin: 06/03/17 15:25 Dose: 40 mg Senna/Docusate Sodium (Senna Plus) 1 tab PO BID [facility] Last Admin: 06/03/17 20:44 Dose: 1 tab Admin: 06/03/17 09:34 Dose: 1 tab Tamsulosin HCl (Flomax) 0.4 mg PO BEDTIME [facility] Last Admin: 06/03/17 20:44 Dose: 0.4 mg Admin: 06/02/17 21:39 Dose: 0.4 mg Tramadol HCl (Ultram) 50 mg PO Q6H PRN PRN Reason: Pain - Plan Plan (Free Text/Narrative):: Pollo Perkins is a 72 year old male who is POD # 2 from extended right colon resection with partial lobectomy of liver segments III and VIII as well as wedge resection of segments VIII. He is currently in no pain. He had no other complaints and the rest of his exam was benign. The patient was found to anemic this morning at 10 but is elevated from yesterdays 8.2. He also had a leukocytosis at 14.5. His creatinine was high at 1.6 a change from yesterday which was 2.2. His liver enzymes were elevated which is to be expected given the lobectomies. His BNP was elevated 244 which is elevated from yesterday at 197.The patient had delayed primary closure of his midline abdominal wound today. He had no further concerns or questions at this time. - S/P Extended right colectomy- The patient is currently in no pain. He will most likely need to start some chemotherapy given the colon mass found on resection as well as liver nodules. The patient was informed of this and agreed. - Continue Epidural for pain - PPI 40 mg Daily - Tramadol Q6 for pain - Cleocin - Erythromycin # Anemia/Acute kidney injury- Most likely resolved or resolving. Anemia is also better after receiving 2 units of packed red cells. He is no longer asymptomatic. - Will continue to monitor # Leukocytosis- most likely related to surgery - will continue to trend # hypomagnesia- low at 1.2 - 25ml/hr mag sulfate # Chronic issues: - Continue home medications VTE PPX- Pt advised to continue moving around. SCD's in bed. Pneumonia PPX- Pt advised to walk around and use incentive spirometry 10 times per hour Code status: Full Fluids: 100 ml/hr LR Diet: Full diet Nausea: Zofran Q4hr PRN Bowel regimen: Senna + and Dulcolax Dispo: Patient will likely go home in 2-3 days. This chart was scribed for Dr. Emmanuel by: Davian Woody, MS3 Pg # [phone]
[2017-06-04] MEDS: Aspirin 325 MG Tab.EC PO SCH (09:43)
[2017-06-04] MEDS: Bisacodyl 5 MG Tab PO SCH ×2 (09:43→21:54)
[2017-06-04] MEDS: buPROPion 150 MG Tab.SR PO SCH ×2 (09:43→21:55)
[2017-06-04] MEDS: Metoclopramide 10 MG/2 ML SDV IVPUSH SCH ×2 (09:55→17:18)
[2017-06-04] MEDS: Erythromycin Ethylsuccinate Susp 400 MG/5 ML 100 ML Bottle PO SCH ×2 (13:14→21:55)
--- NOTE | 2017-06-04 16:13 | OR ---
DATE OF PROCEDURE: 06/04/2017 PREOPERATIVE DIAGNOSIS: Open abdominal incision. POSTOPERATIVE DIAGNOSIS: Open abdominal incision. PROCEDURE: Delayed primary closure of open abdominal incision. ANESTHESIA: IV sedation plus local. HEALTH CARE COACH: Davian Woody MS-3. INDICATION FOR PROCEDURE: A 72-year-old 48 hours status post open laparotomy with colon resection of the skin and subcutaneous tissue who was felt to be at high risk for wound infection, left open. Therefore, this was packed open for a delayed primary closure at this time. Potential risks of procedure including bleeding, infection, possible aspiration of gastric contents during the procedure were reviewed, and the patient wishes to proceed. DETAILS OF PROCEDURE: The patient was taken to the operating room and placed in a semi- sitting position with the head up around 30 degrees. IV sedation was administered. After the operative dressing was taken down, the wound found to be present. Using ultrasound bilateral mid abdominal transverse abdominal plane blocks were replaced with a standard solution. Following this, the midline incision was prepped and draped, anesthetized with 1% lidocaine, mixed with Marcaine and then irrigated with meropenem-containing saline solution. Subcutaneous tissue layer was extremely thin so at this point I closed this with a joseph, this was along the midline incision from the xiphoid to somewhat below the umbilicus, and a dressing applied. The previous [place] drains were also removed. The patient was taken to the recovery room in satisfactory condition. The patient did have some emesis during the procedure and clinically appeared not to have aspirated but we will empirically treat him with 5 days of clindamycin and continue to work with pulmonary toilet. We will also add scheduled Reglan, erythromycin to augment gastric emptying. We might as well put an even if he vomits additionally he might need to have a nasogastric tube placed. Ti Emmanuel MD /[id number]
[2017-06-04] MEDS: Pantoprazole 40 MG Vial IVPUSH SCH (17:16)
[2017-06-04] MEDS: Tamsulosin 0.4 MG Cap.ER PO SCH (21:54)
[2017-06-05] MEDS: Clindamycin Phosphate 900 MG in Sodium Chloride 0.9% 100 ML IV SCH ×4 (00:06→23:29)
[2017-06-05] MEDS: Acetaminophen 500 MG Tab PO SCH ×4 (02:31→21:28)
[2017-06-05] MEDS: Metoclopramide 10 MG/2 ML SDV IVPUSH SCH ×3 (02:31→17:16)
[2017-06-05] MEDS: Magnesium Sulfate/Water 2 GM in Premix Bag 1 BAG IV SCH ×4 (04:21→21:34)
[2017-06-05] MEDS: Erythromycin Ethylsuccinate Susp 400 MG/5 ML 100 ML Bottle PO SCH ×3 (05:55→21:28)
[2017-06-05] MEDS: Insulin Aspart 100 Units/ML 3 ML Pen SUBCUT SCH ×4 (07:57→20:44)
--- NOTE | 2017-06-05 08:32 | PN ---
DATE OF SERVICE: 06/05/2017 SUBJECTIVE: Pollo has been up ambulating. He is assist with one. Vital signs have been stable. Oral intake 685. Urine output 550. His FAITH drain #1 put out 185 and #2 put out 60. Labs this morning; hemoglobin 8.6, phosphorus 1.7, glucose 204, creatinine is down to 1.3, estimated creatinine clearance 48.61. REVIEW OF SYSTEMS: Negative for any other pertinent positives and negatives. OBJECTIVE: GENERAL: Pollo Perkins is a 72-year-old male. Alert and orientated. Extremely hard of hearing. VITAL SIGNS: TPR is 97, 100, 16, and blood pressure 141/69. HEENT: Negative. NECK: Supple. HEART: Regular rate and rhythm. LUNGS: Clear. ABDOMEN: Dressings dry and intact. Abdominal binder is on. FAITH drains, as above. EXTREMITIES: Without peripheral edema. ASSESSMENT: 1. Delayed primary closure. 2. 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 Date of surgery, 06/02/2017, Ti Emmanuel MD. 3. Postoperative anemia. PLAN: 1. Check CBC, CMP, phos in a.m. 2. Rx phosphorus 250 q.i.d. 3. Type and screen 2 units of red blood cells. 4. Give one unit of packed red blood cells. 5. Good pulmonary toilet. 6. We will evaluate p.r.n. or in a.m. hCen Gutierrez PA-C /[id number]
[2017-06-05] MEDS: Phosphorus #1 250 MG Tab PO SCH ×3 (09:04→21:31)
[2017-06-05] MEDS: Bisacodyl 5 MG Tab PO SCH ×2 (09:04→21:29)
[2017-06-05] MEDS: buPROPion 150 MG Tab.SR PO SCH ×2 (09:04→21:32)
[2017-06-05] MEDS: Aspirin 325 MG Tab.EC PO SCH (09:05)
[2017-06-05] MEDS ORDERED: Pantoprazole 40 MG Tab.CR PO SCH (16:00)
[2017-06-05] MEDS: Tamsulosin 0.4 MG Cap.ER PO SCH (21:33)
[2017-06-06] MEDS: Acetaminophen 500 MG Tab PO SCH ×2 (02:31→09:32)
[2017-06-06] MEDS: Metoclopramide 10 MG/2 ML SDV IVPUSH SCH (02:33)
[2017-06-06] MEDS: Magnesium Sulfate/Water 2 GM in Premix Bag 1 BAG IV SCH (04:41)
[2017-06-06] MEDS: Phosphorus #1 250 MG Tab PO SCH ×2 (05:25→09:33)
[2017-06-06] MEDS: Erythromycin Ethylsuccinate Susp 400 MG/5 ML 100 ML Bottle PO SCH (05:25)
[2017-06-06] MEDS: Insulin Aspart 100 Units/ML 3 ML Pen SUBCUT SCH (09:14)
[2017-06-06] MEDS: Bisacodyl 5 MG Tab PO SCH (09:14)
--- NOTE | 2017-06-06 09:30 | DISCH ---
ADMISSION DIAGNOSES: 1. Tumor in the transverse colon, abdominal pain. 2. History of cerebrovascular accident. 3. Type 2 diabetes. 4. Chronic obstructive pulmonary disease. 5. Cardiovascular disease. 6. Coronary artery disease. 7. Essential hypertension. 8. Cerebrovascular disease. DISCHARGE DIAGNOSES: 1. 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 2. Delayed primary closure, 06/04/2017. 3. Postoperative anemia requiring 3 units of packed red blood cells. HISTORY: Pollo Perkins is a 72-year-old male, who presented to the emergency room with abdominal pain. A workup in the emergency room was suggestive of an obstruction of the transverse colon and high-grade obstruction. After preoperative evaluation and discussion of possible risks and possible complications, he wished to proceed with surgical procedure. HOSPITAL COURSE: Mr. Perkins had his surgery on 06/02/2017. He had no operative complications. Delayed primary closure on 06/04/2017. Mr. Perkins received 2 units of packed red blood cells on 06/03/2017 for a hemoglobin of 8.2, and he received 1 unit on 06/05/2017 for a hemoglobin of 8.6. On discharge, his hemoglobin was 9.7. Creatinine was monitored closely. His creatinine on the day of OR was 2.0, on postoperative day #1 was 2.2 then gradually decreased to 1.3 on the day of discharge. Blood sugars remained slightly elevated. He was started on the Januvia. He had sliding scale if needed, but his metformin was held. Magnesium was replaced, as well as his phosphorus. BNP was monitored and on day of discharge, it was 1,462. He will be going home on his normal Lasix dose. Potassium on day of discharge was 3.4. Carcinoembryonic Ag was 6.2 with normal being 0.0 to 3.7. Mr. Perkins was having bowel movements on 06/05/2017. His activity was good. Pain was well managed. Oral intake adequate at 970. Appetite was improving. Urine output was difficult to measure; it was mixed with bowel movement, but appeared to be adequate. The patient was able to be discharged on 06/06/2017 with no complications. PHYSICAL EXAMINATION: VITAL SIGNS: Pollo Perkins is a 72-year-old male. Height 5 feet 6.9 inches. Weight 162 pounds. TPR 97.3, 100, 16. Blood pressure 167/84. HEENT: Negative. NECK: Supple. HEART: Regular rate and rhythm. LUNGS: Clear. ABDOMEN: Occlusive Aquacel dressing was removed. Greer looked good. He has 4x4s over the FAITH drain sites. EXTREMITIES: Without peripheral edema. DISPOSITION: Discharged to home. CONDITION: Stable and improving. FOLLOWUP APPOINTMENT: With Ti Emmanuel MD on 06/11/2017 at 10:00 a.m. He is to arrive at the clinic at 9:30 a.m. to check CMP, CBC, mag phos and BNP. Greer will be left in at this appointment, as they are too early to be removed. Appointment is to go over pathology report, and he will bring in family members. New prescriptions: 1. Tylenol Extra Strength 1000 mg q.6 hours scheduled. 2. Neutra-Phos 250 mg oral 4 times a day, #120. 3. Potassium chloride 20 mEq one p.o. daily. 4. Ultram 50 mg q.6 hours p.r.n. pain, #30. He is to resume his home medications of: 1. Nexium 40 mg daily. 2. Aspirin 325 mg oral at bedtime. 3. TriCor 48 mg oral daily. 4. Fluocinolone acetonide 0.01% topical 1 mL twice daily. 5. Furosemide 40 mg daily. 6. MiraLax 17 g oral daily. 7. Altace 10 mg oral twice daily. 8. Januvia 25 mg daily. 9. Lipitor 40 mg oral at bedtime. 10.Bupropion 150 mg oral twice daily. 11.I will decrease metformin to 500 mg b.i.d. DISCHARGE INSTRUCTIONS: 1. Diet after discharge drink 8-10 glasses of water a day, diabetic, GI soft diet. 2. Activity as tolerated. No lifting greater than 10 pounds for 6 weeks. Driving, do not drive for 2 weeks. 3. Notify provider if any fever, increased pain, nausea, or vomiting. Keep site clean and dry. Wear abdominal binder for 6 weeks. SPECIAL INSTRUCTIONS: 1. Use incentive spirometer 10 times every hour while awake for 2 weeks. 2. Check blood sugars at least twice a day right away in the morning and again at bedtime. Record results and bring to clinic appointments.
[2017-06-06] MEDS: Aspirin 325 MG Tab.EC PO SCH (09:32)
[2017-06-06] MEDS: buPROPion 150 MG Tab.SR PO SCH (09:33)
--- NOTE | 2017-06-10 09:45 | OR ---
DATE OF PROCEDURE: 06/02/2017 PREOPERATIVE DIAGNOSIS: Probable partial obstruction of the transverse colon. POSTOPERATIVE DIAGNOSES: 1. Carcinoma of transverse colon with metastases to liver x3. 2. Focal peritoneal nodule base of mesentery. OPERATIVE PROCEDURE: Exploratory laparotomy with: 1. Extended right colectomy (37172). 2. Partial lobectomy, hepatic segment III (17720). 3. Partial lobectomy, hepatic segment VIII (07265). 4. Separate wedge resection of mass involving hepatic segment VIII (94315). 5. Excision of peritoneal nodule at the base of mesentery (40174). ANESTHESIA: General. ASSISTANTS: 1. Chen Gutierrez PA-C. 2. GENA Cedillo3. INDICATION FOR PROCEDURE: This is a 72-year-old presenting with a clinical picture at this point suggestive of a partial obstruction at the level of the transverse colon. This was not seen well endoscopically, but both CT scan and barium enema obtained in the last few days show what appears to be a partially obstructing lesion in the transverse colon. Plan will be to proceed with diagnostic laparoscopy or laparotomy with resection of the pathology as indicated, as well as other procedures as indicated, based on operative findings. The patient and his daughter, who I have spoken to earlier today, are both aware that there is a high likelihood of this being a malignancy. Potential risks of the procedure including bleeding, infection, leaks from various GI tract closures, possible local or distant tumor recurrence, possibility that the tumor may not be curable, were all reviewed, along with the possibility of cardiopulmonary, septic, or hemorrhagic complications leading to were all discussed, and the patient wishes to proceed. OPERATIVE FINDINGS: After general endotracheal anesthesia was induced, a focal fullness was present in the area of the right upper and mid abdominal wall. Given this, we forego the option of a diagnostic laparoscopy, as this clinical exam with the patient now relaxed, appeared to confirm a mass effect in that area. Given this, a midline incision, which eventually was taken from a handsbreadth below the umbilicus to the xiphoid superiorly, was made and carried down through the full-thickness of the abdominal wall. Upon entering the peritoneal cavity, the patient was noted to have an obvious mass highly suggestive of malignancy, involving the transverse colon just to the right of the midline. There was quite a bit of inward puckering of the colon wall circumferentially, i.e. a napkin ring-type tumor present. This was adherent to some omentum without gross perforation of the tumor in the areas not aggressively covered by omentum, though the latter of which was left undisturbed. In general, there was no peritoneal carcinomatosis. There was 1 small clear nodule noted at the base of the mesentery, measuring around 3 mm. This was excised and sent as a separate specimen. In the lymph nodes along the middle colic vessels, there was a significant firm lymphadenopathy. This came up to the level of the junction of the middle colic artery and superior mesenteric artery, but above that, which was the level of the transection, no significant further adenopathy was noted along the superior mesenteric artery itself, in the queta hepatis or in the periaortic area. The patient had 3 areas of probable liver metastases, which were not seen on preoperative imaging. One was located in the medial aspect of the hepatic segment III, i.e. on the inferior aspect of liver just to the left of the falciform ligament. A second mass was then present in hepatic segment VIII at a point high and fairly adherent to the posterior aspect of the liver, adjacent to its attachments to the diaphragm. The former area was resected by means of a partial hepatic lobectomy, removing roughly one third of the volume of hepatic segment III. The lateral area was also resected by means of partial hepatic lobectomy measuring around 7 cm of the liver around that area. Finally, there was one additional smaller nodule located in the hepatic segment VIII also, somewhat further anterior and inferior to the more higher hepatic segment VIII mass. This was removed by more of a wedge resection approach, with the degree of resection being around 5 cm. In the latter specimen, upon its removal and manipulation of the liver tissue around it, it fragmented somewhat, which may give a false impression of the tumor being closer to the margin than actually was present, i.e. it could possibly give a false-positive read of margin involvement. After the area did fragment somewhat, the gloves involved in handling that specimen were changed. The patient underwent an extended right colectomy with the final anastomosis being the small bowel and the mid descending colon, thus achieving the anastomosis in an area somewhat distal to the vascular watershed area in the splenic flexure, assuring a more adequate blood supply. PROCEDURE IN DETAIL: The patient was taken to the operating room. After general endotracheal anesthesia was induced, a Rodrigues catheter was inserted, and eventually an orogastric tube was placed. Prior to induction of general anesthetic, an epidural catheter was also placed, and after the area was prepped and draped, the epidural catheter infusion was initiated. A midline incision was then undertaken, and general exploration was undertaken, as outlined above. At this point, the decision was made to proceed with the resection of the primary tumor and complete that anastomosis, and then, if the patient was otherwise doing well at that point, the areas of metastatic disease of the liver appeared to be fairly straightforward and low risk for resection given their location, it would appear a concurrent hepatic resection of the involved areas would be appropriate. After initial exploration, the small nodule at the base of the mesentery was excised and sent as a separate specimen. This measured around 3 mm in size. At this point, the distal ileum was divided with a ALLIE stapler, and the peritoneal reflection of the distalmost ileum, cecum, and ascending colon were divided and rotated medially with care taken to avoid injury to underlying duodenum and right ureter. Some of the omentum was then divided away as well, allowing a more adequate resection of the area around the tumor and not disturbing the attachments of the omentum to the area of the tumor around the transverse colon. At this point, the peritoneal reflection of the descending colon and sigmoid colon were also divided, allowing medial mobilization of those structures. The midportion of the descending colon was then divided with a ALLIE stapler and then dissection continued upward to the area around the splenic flexure, and once the mesentery to the entire area of resection appeared to be satisfactorily mobilized, it was carefully divided with ALLIE vascular mesenteric loads. The point of the division of the middle colic vessels was immediately flush with the take-off of the superior mesenteric artery, so as to maximize the amount of laura resection in that area. Following the mesenteric resection, the specimen was then delivered from the field. At this point, the divided end of the small bowel easily came across to the area of the descending colon, distal to the point of transection. A [id number] ileocolic anastomosis was accomplished with 2 internal firings of the Endo-ALLIE britton loads, the common opening was then closed transversely with purple loads, the angles anastomosed, and the mesenteric defect approximated with some 3-0 Vicryl stitch and subsequently reinforced with some fibrin sealant. At this point, the patient was doing well and appeared to be appropriate to proceed with the hepatic resections. Initially, the area around the hepatic segment III was addressed. The attachments of the liver to the falciform ligament medially were divided with electrocautery. This then allowed a plane of dissection, removing roughly one third of the volume of hepatic segment III on its medial aspect with combination of electrocautery and joseph. That specimen was then delivered from the field. Attention was then taken to the area of the hepatic segment VIII. The peritoneal ligament was divided laterally. This allowed an upward mobilization of the liver into the field, and after aligning the initial point of excision line with electrocautery, that area was sequentially excised with series of several firings of the ALLIE stapler and that specimen delivered from the field. There was a fair bit of oozing from that area, which was then controlled with some #2-0 chromic liver stitches. Finally, the area of smaller nodule, somewhat inferior to hepatic segment VIII was excised by means of more of a wedge resection type approach with combination of electrocautery and joseph, and that specimen was delivered from the field. As noted above, upon manipulation of this, the liver tissue overlying the resection line fragmented somewhat, giving the appearance of a somewhat closer margin than was actually present. At this point, all areas of dissection were inspected. No further bleeding or other problems were noted. The liver resection sites were reinforced with some fibrin sealant. Two Tone-Hodge drains were then placed, one in the upper abdomen draped across the areas of the liver resection, and the other one along the right colic gutter area. Prior to closure, both the ureters were confirmed to be intact, and the duodenum likewise was confirmed to be undamaged in the area of the right colon resection. The midline fascia was then approximated with a #2 Vicryl stitch. The skin and subcutaneous tissue were left open for a planned delayed primary closure in 48 hours. The patient was taken to the recovery room in satisfactory condition. There were no evident complications. Physician child life assistant, Chen Gutierrez, played an essential role in assisting in this case, helping to position the patient, retract structures as needed, as well as suturing and cutting sutures when indicated. Her presence improved patient safety and decreased operative time. Ti Emmanuel MD /[id number]
== END 2017-06-06 10:19 | disposition home or self-care (01) | DRG 330 ==
LOC: JP.MS 09:47 → JP.SDS 09:47 → EDSTATUS 13:45 → JP.2SS 17:40
PROVIDERS: ADMIT Surgery; ATTEND Surgery
PROC: 0DTF0ZZ Resection of Right Large Intestine, Open Approach (ICD-10-PCS; principal; 2017-06-02)
PROC: 0FB20ZZ Excision of Left Lobe Liver, Open Approach (ICD-10-PCS; 2017-06-02)
PROC: 0FB10ZZ Excision of Right Lobe Liver, Open Approach (ICD-10-PCS; 2017-06-02)
PROC: 0FB10ZX Excision of Right Lobe Liver, Open Approach, Diagnostic (ICD-10-PCS; 2017-06-02)
PROC: 0DBV0ZZ Excision of Mesentery, Open Approach (ICD-10-PCS; 2017-06-02)
PROC: 0D1 Gastrointestinal System, Bypass (ICD-10-PCS; 2017-06-02)
PROC: 0DBB0ZX Excision of Ileum, Open Approach, Diagnostic (ICD-10-PCS; 2017-06-02)
PROC: 30233N1 Transfusion of Nonautologous Red Blood Cells into Peripheral Vein, Percutaneous Approach (ICD-10-PCS; 2017-06-03)
PROC: 0WQF0ZZ Repair Abdominal Wall, Open Approach (ICD-10-PCS; 2017-06-04)
PROC: 30233N1 Transfusion of Nonautologous Red Blood Cells into Peripheral Vein, Percutaneous Approach (ICD-10-PCS; 2017-06-05)
DX: C18.4 Malignant neoplasm of transverse colon (principal); C78.7 Secondary malignant neoplasm of liver and intrahepatic bile duct; N17.9 Acute kidney failure, unspecified; K66.8 Other specified disorders of peritoneum; D64.9 Anemia, unspecified; E83.42 Hypomagnesemia; R11.10 Vomiting, unspecified; D72.829 Elevated white blood cell count, unspecified; I10 Essential (primary) hypertension; I25.10 Atherosclerotic heart disease of native coronary artery without angina pectoris; E11.9 Type 2 diabetes mellitus without complications; Z79.84 Long term (current) use of oral hypoglycemic drugs; Z86.73 Personal history of transient ischemic attack (TIA), and cerebral infarction without residual deficits; E78.00 Pure hypercholesterolemia, unspecified; J44.9 Chronic obstructive pulmonary disease, unspecified; Z95.5 Presence of coronary angioplasty implant and graft; H91.90 Unspecified hearing loss, unspecified ear; Z79.82 Long term (current) use of aspirin; Z48.1 Encounter for planned postprocedural wound closure
CPT/HCPCS: 36415; 36430; 76998; 80053; 82378; 82962; 83735; 83880; 84100; 85027; 86850; 86900; 86901; 86920; 86922; 88305; 88307; 88309; 88312; 94762; 97162-GP; A9270-GY; C9113; J0171; J0694; J1100; J1940; J2001; J2185; J2250; J2370; J2405; J2704; J2765; J2795; J3010; J3475; J7030; J7042; J7050; J7120; P9016; S0077

== ENCOUNTER 2017-06-08 18:48 | Emergency (ER) | payer MEDICARE, MEDICAID ==
--- NOTE | 2017-06-08 21:32 | EDM.PDOC ---
ED HPI GENERAL MEDICAL PROBLEM - General Chief Complaint: Abdominal Pain Stated Complaint: SURGERY IN PAIN Time Seen by Provider: 06/08/17 21:13 Source of Information: Reports: Patient History Limitations: Reports: No Limitations - History of Present Illness INITIAL COMMENTS - FREE TEXT/NARRATIVE: This gentleman had a colon resection by Dr. Emmanuel 6 days ago. He said the the wound initially was left open end and stapled 2 days later. He was doing well until today. At 2:30 this morning he awakened with pain he took some tramadol repeated that again at 8:30 1430 hasn't had anymore since 1430 he describes severe pain right around the incision. Middle Abdominal Pain Score (Numeric/FACES): 9 - Related Data Allergies Allergy/AdvReac Type Severity Reaction Status Date / Time No Known Allergies Allergy Verified 06/02/17 10:48 Home Meds: Home Meds Aspirin 325 mg PO BEDTIME 02/25/13 [History] Esomeprazole Magnesium [Nexium] 40 mg PO DAILY 02/25/13 [History] Fenofibrate Nanocrystallized [Tricor] 48 mg PO DAILY 02/25/13 [History] Fluocinolone Acetonide [Synalar 0.01% Top Soln] 1 ml TOP BID PRN 02/25/13 [ History] Furosemide 40 mg PO DAILY 02/25/13 [History] Ramipril [Altace] 10 mg PO BID 02/25/13 [History] buPROPion HCl [Zyban] 150 mg PO BID 02/25/13 [History] SitaGLIPtin [Januvia] 25 mg PO DAILY 05/21/17 [History] Polyethylene Glycol 3350 [Miralax] 17 g PO DAILY PRN 06/02/17 [History] atorvaSTATin [Lipitor] 40 mg PO BEDTIME 06/02/17 [History] Acetaminophen [Tylenol Extra Strength] 1,000 mg PO Q6H #100 tablet 06/06/17 [Rx] Phosphorus #1 [Neutra-Phos] 250 mg PO QID #120 tablet 06/06/17 [Rx] Potassium Chloride 20 meq PO DAILY #30 tablet.er 06/06/17 [Rx] metFORMIN [Glucophage XR] 500 mg PO BIDMEALS #60 tab.er 06/06/17 [Rx] traMADol [Ultram] 50 mg PO Q6H PRN #30 tablet 06/06/17 [Rx] Past Medical History HEENT History: Reports: Cataract, Hard of Hearing Cardiovascular History: Reports: CAD, High Cholesterol, Hypertension, Stents Gastrointestinal History: Reports: GERD Musculoskeletal History: Reports: Fracture, Other (See Below) Other Musculoskeletal History: fractured finger Neurological History: Reports: CVA Psychiatric History: Reports: Depression Endocrine/Metabolic History: Reports: Diabetes, Type II Oncologic (Cancer) History: Reports: Colon Dermatologic History: Reports: Psoriasis - Infectious Disease History Infectious Disease History: Reports: Influenza, Measles, Mumps - Past Surgical History Cardiovascular Surgical History: Reports: Coronary Artery Stent, Other (See Below) Other Cardiovascular Surgeries/Procedures: stroke 15 years ago GI Surgical History: Reports: Appendectomy, Colon, Colonoscopy, Other (See Below ) Social & Family History - Family History Family Medical History: Noncontributory Oncologic: Reports: Renal, Other (See Below) - Tobacco Use Smoking Status *Q: Never Smoker Years of Tobacco use: 50 Packs/Tins Daily: 0 Used Tobacco, but Quit: Yes Month Tobacco Last Used: o Second Hand Smoke Exposure: No - Caffeine Use Caffeine Use: Reports: Coffee Caffeine Use Comment: a few cups a day - Recreational Drug Use Recreational Drug Use: No ED ROS GENERAL - Review of Systems Review Of Systems: ROS reveals no pertinent complaints other than HPI. ED EXAM, GI/ABD - Physical Exam Exam: See Below Exam Limited By: No Limitations General Appearance: Alert, WD/WN, No Apparent Distress Respiratory/Chest: Lungs Clear Cardiovascular: Regular Rate, Rhythm GI/Abdominal Exam: Other (The abdomen shows a midline incision which has been stapled there are normal bowel sounds. The abdomen itself is generally nontender no masses are palpable the incision appears to be intact and I palpated all along the incision I can't find any tender areas. There is a sort of firm thickened area just beneath the incision about 4 cm superior to the umbilicus but he said that there was some not there before and this area is nontender overall everything looks okay with the belly for this stage postop.) Course - Vital Signs Last Recorded V/S: Last Vital Signs Temp 35.7 C 06/08/17 19:25 Pulse 112 H 06/08/17 19:25 Resp 16 06/08/17 19:25 BP 99/73 06/08/17 19:25 Pulse Ox 98 06/08/17 19:25 Departure - Departure Time of Disposition: 21:30 Disposition: Home, Self-Care 01 Condition: Fair Clinical Impression: Pain at surgical incision - Discharge Information Referrals: Arturo Crystal MD [Primary Care Provider] - Additional Instructions: Instead of tramadol you may use oxycodone 5/acetaminophen 325 or Percocet 5/325 one or 2 tablets every 4 hours as needed for pain #15 dispensed. Don't take the tramadol at the same time. This medication causes sedation just like the tramadol does. If you're getting worse over the next day or 2 be sure to see your Dr. My exam indicates that you are healing normally despite the pain you had. Continue to wear the abdominal binder as needed
== END 2017-06-08 21:45 | disposition home or self-care (01) ==
LOC: JP.ED 18:48
DX: G89.18 Other acute postprocedural pain (principal); I10 Essential (primary) hypertension; E78.00 Pure hypercholesterolemia, unspecified; K21.9 Gastro-esophageal reflux disease without esophagitis; E11.9 Type 2 diabetes mellitus without complications; Z87.891 Personal history of nicotine dependence; Z79.899 Other long term (current) drug therapy; Z79.84 Long term (current) use of oral hypoglycemic drugs; Z79.82 Long term (current) use of aspirin
CPT/HCPCS: 99284

== ENCOUNTER → 2017-07-01 | Day surgery (SDC) | payer MEDICARE, MEDICAID ==
[~2017-07-01] MED LIST: Bupivacaine 0.5% 50 ML MDV ONE; Dextrose 5%-Lactated Ringers 1,000 ML IV SCH; Lidocaine 1% with EPINEPHrine 1:100,000 50 ML MDV ONE; Midazolam 1 MG/ML 2 ML SDV ONE; Propofol 200 MG/20 ML SDV ONE; ceFAZolin 2 GM in Premix Bag 1 BAG IV ONE; fentaNYL 100 MCG/2 ML SDV ONE
--- NOTE | 2017-07-09 17:19 | OR ---
DATE OF PROCEDURE: 07/01/2017 PREOPERATIVE DIAGNOSIS: Indication for central venous access. POSTOPERATIVE DIAGNOSIS: Indication for central venous access. OPERATIVE PROCEDURE: Insertion of Bard PowerPort via left subclavian vein approach (44088). ANESTHESIA: Local plus IV sedation. INDICATIONS FOR PROCEDURE: This is a 72-year-old recently presenting with a transverse colon carcinoma with multiple lymph node metastases as well as three liver metastasis, the latter of which were resected. chemotherapy and therefore central venous access. The plan is to proceed with Bard PowerPort. Potential risks including bleeding, infection, pneumothorax, possibility of port becoming infected or occluded were all reviewed, and the patient wishes to proceed. DETAILS OF PROCEDURE: The patient was taken to the operating room and placed in a supine position. After IV sedation was administered, the upper chest and neck areas were prepped and draped. The left subclavian area was then anesthetized with some 1% lidocaine mixed with Marcaine. The left subclavian cannulated. Guidewire was passed and manipulated through that site and into the superior vena cava. Some additional local was then injected and a transverse infraclavicular incision was made and carried down through the skin and subcutaneous tissue into the area below the pectoralis major fascia and in that plane, port site was then dissected bluntly. PowerPort which is the Bard PowerPort was then prepared and flushed with heparinized saline. This port was placed into the pocket and the catheter cut such that the tip would lie in the superior vena cava. The introducer and peel-away catheter were then placed, which allowed placement of Bard PowerPort catheter without difficulty. The incision was then closed with some 3-0 and 4-0 Vicryl stitch deep and a 4-0 Vicryl subcuticular stitch. Steri-Strips were applied. At that point, Bard PowerPort was aspirated and we then flushed with heparinized saline. Good in and outflow were noted. The patient was taken to the recovery room in satisfactory condition. Ti Emmanuel MD /[id number]
== END ==
LOC: JP.SDS 07:30
PROVIDERS: ATTEND Surgery
DX: C18.4 Malignant neoplasm of transverse colon (principal); C77.2 Secondary and unspecified malignant neoplasm of intra-abdominal lymph nodes; C78.7 Secondary malignant neoplasm of liver and intrahepatic bile duct; J44.9 Chronic obstructive pulmonary disease, unspecified; Z79.899 Other long term (current) drug therapy
CPT/HCPCS: 36415; 36561; 80053; 82378; 83735; 84100; 85027; C1788; J0690; J1642; J2250; J2704; J3010; J7042

== ENCOUNTER 2017-07-17 00:25 | Emergency (ER) | payer MEDICARE, MEDICAID ==
--- NOTE | 2017-07-17 01:03 | EDM.PDOC ---
ED HPI GENERAL MEDICAL PROBLEM - General Chief Complaint: Chest Pain Stated Complaint: MEDICAL [facility] Time Seen by Provider: 07/17/17 00:55 Source of Information: Reports: Patient, Family, RN Notes Reviewed History Limitations: Reports: No Limitations - History of Present Illness INITIAL COMMENTS - FREE TEXT/NARRATIVE: 72-year-old gentleman presents to the emergency department day complaint of chest pain, he recently was diagnosed with colon cancer has recently started chemotherapy of xeloda , he is chest pain-free at this time has had 3 bouts of chest pain sharp last couple of minutes then resolve over the last 6 hours, was diaphoretic with the pain no nausea no shortness of breath - Related Data Allergies Allergy/AdvReac Type Severity Reaction Status Date / Time No Known Allergies Allergy Verified 07/17/17 00:43 Home Meds: Home Meds Aspirin 325 mg PO BEDTIME 02/25/13 [History] Fenofibrate Nanocrystallized [Tricor] 48 mg PO DAILY 02/25/13 [History] Fluocinolone Acetonide [Synalar 0.01% Top Soln] 1 ml TOP BID PRN 02/25/13 [ History] Furosemide 40 mg PO DAILY 02/25/13 [History] Ramipril [Altace] 10 mg PO BID 02/25/13 [History] buPROPion HCl [Zyban] 150 mg PO BID 02/25/13 [History] SitaGLIPtin [Januvia] 25 mg PO DAILY 05/21/17 [History] atorvaSTATin [Lipitor] 40 mg PO BEDTIME 06/02/17 [History] Acetaminophen [Tylenol Extra Strength] 1,000 mg PO Q6H #100 tablet 06/06/17 [Rx] Phosphorus #1 [Neutra-Phos] 250 mg PO QID #120 tablet 06/06/17 [Rx] traMADol [Ultram] 50 mg PO Q6H PRN #30 tablet 06/06/17 [Rx] Capecitabine [Xeloda] 1,500 mg PO ASDIRECTED 06/27/17 [History] Magnesium Oxide [Magnesium] 400 mg PO DAILY 06/27/17 [History] Potassium Chloride 40 meq PO DAILY 06/27/17 [History] Prochlorperazine [Compazine] 10 mg PO Q6H PRN 06/27/17 [History] metFORMIN [Glucophage XR] 500 mg PO BIDMEALS 06/27/17 [History] Escitalopram [Lexapro] 10 mg PO DAILY 07/17/17 [History] Omeprazole 40 mg PO DAILY 07/17/17 [History] Past Medical History HEENT History: Reports: Cataract, Hard of Hearing Cardiovascular History: Reports: CAD, High Cholesterol, Hypertension, Stents Gastrointestinal History: Reports: GERD Musculoskeletal History: Reports: Fracture, Other (See Below) Other Musculoskeletal History: fractured finger Neurological History: Reports: CVA Psychiatric History: Reports: Depression Endocrine/Metabolic History: Reports: Diabetes, Type II Oncologic (Cancer) History: Reports: Colon Dermatologic History: Reports: Psoriasis - Infectious Disease History Infectious Disease History: Reports: Influenza, Measles, Mumps - Past Surgical History Cardiovascular Surgical History: Reports: Coronary Artery Stent, Other (See Below) Other Cardiovascular Surgeries/Procedures: stroke 15 years ago GI Surgical History: Reports: Appendectomy, Colon, Colonoscopy, Other (See Below ) Other GI Surgeries/Procedures: Colon resection Social & Family History - Family History Family Medical History: Noncontributory Oncologic: Reports: Renal, Other (See Below) - Tobacco Use Smoking Status *Q: Former Smoker Years of Tobacco use: 50 Packs/Tins Daily: 0 Used Tobacco, but Quit: Yes Month/Year Tobacco Last Used: 2014 Second Hand Smoke Exposure: No - Caffeine Use Caffeine Use: Reports: Soda Caffeine Use Comment: a few cups a day - Recreational Drug Use Recreational Drug Use: No ED ROS GENERAL - Review of Systems Review Of Systems: See Below Constitutional: Reports: Diaphoresis HEENT: Reports: No Symptoms Respiratory: Reports: No Symptoms Cardiovascular: Reports: Chest Pain GI/Abdominal: Reports: No Symptoms : Reports: No Symptoms Musculoskeletal: Reports: No Symptoms ED EXAM, GENERAL - Physical Exam Exam: See Below Exam Limited By: No Limitations General Appearance: Alert, WD/WN, No Apparent Distress Respiratory/Chest: No Respiratory Distress, Lungs Clear, Normal Breath Sounds, No Accessory Muscle Use Cardiovascular: Regular Rate, Rhythm, No Murmur GI/Abdominal: Soft, Non-Tender Course - Vital Signs Last Recorded V/S: Last Vital Signs Temp 96.0 F 07/17/17 00:31 Pulse 81 07/17/17 00:31 Resp 17 07/17/17 00:31 BP 107/65 07/17/17 00:31 Pulse Ox 98 07/17/17 00:31 - Orders/Labs/Meds Orders: Active Orders 24 hr Category Date Time Status Cardiac Monitoring [RC] .As Directed Care 07/17/17 01:09 Active EKG Documentation Completion [RC] ASDIRECTED Care 07/17/17 01:10 Active Chest 2V [CR] Stat Exams 07/17/17 01:10 Taken EKG 12 Lead [EK] Stat Ther 07/17/17 01:10 Ordered Labs: Laboratory Tests 07/17/17 07/17/17 Range/Units 01:15 01:15 WBC 5.1 (4.5-11.0) K/uL RBC 3.44 L (4.30-5.90) M/uL Hgb 10.2 L D (12.0-15.0) g/dL Hct 30.1 L (40.0-54.0) % MCV 88 (80-98) fL MCH 30 (27-31) pg MCHC 34 (32-36) % Plt Count 199 (150-400) K/uL Neut % (Auto) 39 (36-66) % Lymph % (Auto) 43 (24-44) % [place] % (Auto) 18 H (2-6) % Eos % (Auto) 0 L (2-4) % Baso % (Auto) 1 (0-1) % Sodium 139 L (140-148) mmol/L Potassium 4.9 (3.6-5.2) mmol/L Chloride 103 (100-108) mmol/L Carbon Dioxide 26 (21-32) mmol/L Anion Gap 14.9 H (5.0-14.0) mmol/L BUN 31 H (7-18) mg/dL Creatinine 2.0 H (0.8-1.3) mg/dL Est Cr Clr Drug Dosing 31.67 mL/min Estimated GFR (MDRD) 33 L (>60) Glucose 119 H (74-106) mg/dL Calcium 9.7 (8.5-10.1) mg/dL Total Bilirubin 0.4 (0.2-1.0) mg/dL AST 15 (15-37) U/L ALT 21 (12-78) U/L Alkaline Phosphatase 72 (46-116) U/L Troponin I 0.036 (0.000-0.056) ng/mL Total Protein 6.4 (6.4-8.2) g/dL Albumin 3.6 (3.4-5.0) g/dL Globulin 2.8 (2.3-3.5) g/dL Albumin/Globulin Ratio 1.3 (1.2-2.2) Departure - Departure Time of Disposition: 02:19 Disposition: Home, Self-Care 01 Condition: Fair Clinical Impression: Atypical chest pain Referrals: Arturo Crystal MD [Primary Care Provider] - Forms: ED Department Discharge Additional Instructions: Resume regular medications, keep your appointment with infusion in the morning, call return to the emergency department worsening of symptoms - My Orders Last 24 Hours: My Active Orders 07/17/17 01:09 Cardiac Monitoring [RC] .As Directed 07/17/17 01:10 EKG Documentation Completion [RC] ASDIRECTED Chest 2V [CR] Stat EKG 12 Lead [EK] Stat - Assessment/Plan Last 24 Hours: My Active Orders 07/17/17 01:09 Cardiac Monitoring [RC] .As Directed 07/17/17 01:10 EKG Documentation Completion [RC] ASDIRECTED Chest 2V [CR] Stat EKG 12 Lead [EK] Stat Plan: Assessment Acuity = acute Site and laterality = atypical chest pain complicated patient with known history of coronary artery disease with recent diagnosis of colon cancer Etiology = probably related to that xeloda Manifestations = none Location of injury = Home Lab values = hemoglobin low at 10.7 consistent normochromic anemia creatinine elevated at 2.0 consistent chronic renal failure stage G IIIB troponin within the normal range 0.036 remain her blood work is unremarkable, EKG shows no acute process no ST elevations or depressions chest x-ray I did review films myself I cannot appreciate any acute process, the official read from radiology is pending Plan I did review lab work with him as well as chest x-ray he does have an appointment with infusion this morning his plan is to stay at the hospital go to infusion and is aware of possible side effects with his chemotherapy medication he will discuss this with his oncologist This note was dictated using [employer] voice recognition software please call with any questions on syntax or bernardo.
--- NOTE | 2017-07-17 11:16 | CR ---
Heart size upper limits of normal. No focal consolidation. Left subclavian catheter at upper SVC. No focal consolidation. Ectatic upper abdominal aorta.
== END 2017-07-17 02:40 | disposition home or self-care (01) ==
LOC: JP.ED 00:25
DX: R07.89 Other chest pain (principal); E78.00 Pure hypercholesterolemia, unspecified; I10 Essential (primary) hypertension; E11.9 Type 2 diabetes mellitus without complications; Z79.899 Other long term (current) drug therapy; Z79.84 Long term (current) use of oral hypoglycemic drugs; Z87.891 Personal history of nicotine dependence
CPT/HCPCS: 36415; 71046; 71046-26; 80053; 84484; 85025; 93005; 99285-25

== ENCOUNTER 2017-07-17 03:05 | Emergency (ER) | payer MEDICARE, MEDICAID ==
[2017-07-17] MEDS ORDERED: Clopidogrel 75 MG Tab PO ONE (03:12)
[2017-07-17] MEDS ORDERED: Heparin Sodium 5,000 Units/ML Vial IVPUSH ONE (03:12)
[2017-07-17] MEDS ORDERED: Aspirin 81 MG Tab.Chew PO ONE (03:12)
[2017-07-17] MEDS ORDERED: Metoprolol Tartrate 50 MG Tab PO ONE (03:12)
[2017-07-17] MEDS ORDERED: Sodium Chloride 0.9% 10 ML Syringe FLUSH PRN (03:15)
[2017-07-17] MEDS ORDERED: Ondansetron 4 MG Tab.DIS PO ONE (03:15)
[2017-07-17] MEDS ORDERED: Heparin Sodium/D5W 25,000 UNITS/500 ML BAG IV SCH (03:15)
[2017-07-17] MEDS: Nitroglycerin 0.4 MG Tab.SL SL PRN ×3 (03:16→03:41)
[2017-07-17] MEDS ORDERED: Heparin Sodium/D5W 500 ML ONE (03:24)
[2017-07-17] MEDS: Morphine 4 MG/ML Syringe IVPUSH PRN ×2 (03:25→03:50)
--- NOTE | 2017-07-17 03:40 | EDM.PDOC ---
ED HPI GENERAL MEDICAL PROBLEM - General Chief Complaint: Chest Pain Stated Complaint: REVIST VOMITING Time Seen by Provider: 07/17/17 03:12 Source of Information: Reports: Patient, Family, RN Notes Reviewed History Limitations: Reports: No Limitations - History of Present Illness INITIAL COMMENTS - FREE TEXT/NARRATIVE: 72-year-old gentleman read presents again to the emergency department following early evaluation. This time he presents again sudden onset of chest pain with nausea and vomiting however his EKG has changed significantly at this time he now has ST elevations in aVL 1 and the 5 and 6 Mid Chest Pain Score (Numeric/FACES): 8 - Related Data Allergies Allergy/AdvReac Type Severity Reaction Status Date / Time No Known Allergies Allergy Verified 07/17/17 00:43 Home Meds: Home Meds Aspirin 325 mg PO BEDTIME 02/25/13 [History] Fenofibrate Nanocrystallized [Tricor] 48 mg PO DAILY 02/25/13 [History] Fluocinolone Acetonide [Synalar 0.01% Top Soln] 1 ml TOP BID PRN 02/25/13 [ History] Furosemide 40 mg PO DAILY 02/25/13 [History] Ramipril [Altace] 10 mg PO BID 02/25/13 [History] buPROPion HCl [Zyban] 150 mg PO BID 02/25/13 [History] SitaGLIPtin [Januvia] 25 mg PO DAILY 05/21/17 [History] atorvaSTATin [Lipitor] 40 mg PO BEDTIME 06/02/17 [History] Acetaminophen [Tylenol Extra Strength] 1,000 mg PO Q6H #100 tablet 06/06/17 [Rx] Phosphorus #1 [Neutra-Phos] 250 mg PO QID #120 tablet 06/06/17 [Rx] traMADol [Ultram] 50 mg PO Q6H PRN #30 tablet 06/06/17 [Rx] Capecitabine [Xeloda] 1,500 mg PO ASDIRECTED 06/27/17 [History] Magnesium Oxide [Magnesium] 400 mg PO DAILY 06/27/17 [History] Potassium Chloride 40 meq PO DAILY 06/27/17 [History] Prochlorperazine [Compazine] 10 mg PO Q6H PRN 06/27/17 [History] metFORMIN [Glucophage XR] 500 mg PO BIDMEALS 06/27/17 [History] Escitalopram [Lexapro] 10 mg PO DAILY 07/17/17 [History] Omeprazole 40 mg PO DAILY 07/17/17 [History] Past Medical History HEENT History: Reports: Cataract, Hard of Hearing Cardiovascular History: Reports: CAD, High Cholesterol, Hypertension, Stents Gastrointestinal History: Reports: GERD Musculoskeletal History: Reports: Fracture, Other (See Below) Other Musculoskeletal History: fractured finger Neurological History: Reports: CVA Psychiatric History: Reports: Depression Endocrine/Metabolic History: Reports: Diabetes, Type II Oncologic (Cancer) History: Reports: Colon Dermatologic History: Reports: Psoriasis - Infectious Disease History Infectious Disease History: Reports: Influenza, Measles, Mumps - Past Surgical History Cardiovascular Surgical History: Reports: Coronary Artery Stent, Other (See Below) Other Cardiovascular Surgeries/Procedures: stroke 15 years ago GI Surgical History: Reports: Appendectomy, Colon, Colonoscopy, Other (See Below ) Other GI Surgeries/Procedures: Colon resection Social & Family History - Family History Family Medical History: Noncontributory Oncologic: Reports: Renal, Other (See Below) - Tobacco Use Smoking Status *Q: Current Status Unknown Years of Tobacco use: 50 Packs/Tins Daily: 0 Used Tobacco, but Quit: Yes Month/Year Tobacco Last Used: 2014 Second Hand Smoke Exposure: No - Caffeine Use Caffeine Use: Reports: Soda Caffeine Use Comment: a few cups a day - Recreational Drug Use Recreational Drug Use: No ED ROS GENERAL - Review of Systems Review Of Systems: See Below Constitutional: Reports: Diaphoresis Cardiovascular: Reports: Chest Pain GI/Abdominal: Reports: Nausea, Vomiting ED EXAM, GENERAL - Physical Exam Exam: See Below Exam Limited By: No Limitations General Appearance: Alert, Mild Distress Respiratory/Chest: Lungs Clear, Normal Breath Sounds Cardiovascular: Regular Rate, Rhythm, No Murmur Course - Vital Signs Last Recorded V/S: Last Vital Signs Temp 96.3 F 07/17/17 03:09 Pulse 103 H 07/17/17 03:09 Resp 21 H 07/17/17 03:09 BP 125/77 07/17/17 03:21 Pulse Ox 99 07/17/17 03:09 - Orders/Labs/Meds Orders: Active Orders 24 hr Category Date Time Status EKG Documentation Completion [RC] ASDIRECTED Care 07/17/17 03:13 Active Peripheral IV Care [RC] . DIRECTED Care 07/17/17 03:15 Active TROPONIN I [CHEM] Stat Lab 07/17/17 03:15 Ordered Heparin Sodium/D5W [Heparin 25,000 Units in D5W 500 ML] Med 07/17/17 03:15 Active 25,000 units in 500 ml IV TITRATE Morphine Med 07/17/17 03:12 Active 4 mg IVPUSH Q10M PRN Nitroglycerin [Nitrostat] Med 07/17/17 03:12 Active 0.4 mg SL Q5M PRN Sodium Chloride 0.9% [Saline Flush] Med 07/17/17 03:15 Active 10 ml FLUSH ASDIRECTED PRN Peripheral IV Insertion Adult [OM.PC] Urgent Oth 07/17/17 03:15 Ordered EKG 12 Lead [EK] Stat Ther 07/17/17 03:12 Ordered Medication Orders Heparin Sodium/Dextrose (Heparin 25,000 Units In D5w 500 Ml) 25,000 units in 500 mls @ 17.962 mls/hr IV TITRATE ALBERT; Protocol Morphine Sulfate (Morphine) 4 mg IVPUSH Q10M PRN PRN Reason: Chest Pain Stop: 07/18/17 03:12 Last Admin: 07/17/17 03:25 Dose: 4 mg Nitroglycerin (Nitrostat) 0.4 mg SL Q5M PRN PRN Reason: Chest Pain Stop: 07/18/17 03:12 Last Admin: 07/17/17 03:21 Dose: 0.4 mg Admin: 07/17/17 03:16 Dose: 0.4 mg Sodium Chloride (Saline Flush) 10 ml FLUSH ASDIRECTED PRN PRN Reason: Keep Vein Open Last Admin: 07/17/17 03:29 Dose: 10 ml Meds: Medications Generic Name Dose Route Start Last Admin Trade Name Freq PRN Reason Stop Dose Admin Heparin Sodium/Dextrose 25,000 units in 500 mls @ 17.962 mls/hr 07/17/17 03: 15 Heparin 25,000 Units In D5w 500 Ml IV TITRATE ALBERT Protocol 12 UNITS/KG/HR Morphine Sulfate 4 mg 07/17/17 03:12 07/17/17 03:25 Morphine IVPUSH 07/18/17 03:12 4 mg Q10M PRN Administration Chest Pain Nitroglycerin 0.4 mg 07/17/17 03:12 07/17/17 03:21 Nitrostat SL 04/13/18 03:12 0.4 mg Q5M PRN Administration Chest Pain Sodium Chloride 10 ml 07/17/17 03:15 07/17/17 03:29 Saline Flush FLUSH 10 ml ASDIRECTED PRN Administration Keep Vein Open Discontinued Medications Generic Name Dose Route Start Last Admin Trade Name Freq PRN Reason Stop Dose Admin Aspirin 324 mg 07/17/17 03:12 07/17/17 03:15 Aspirin PO 07/17/17 03:13 324 mg ONETIME ONE Administration Clopidogrel Bisulfate 600 mg 07/17/17 03:12 07/17/17 03:27 Plavix PO 07/17/17 03:13 600 mg ONETIME ONE Administration Heparin Sodium (Porcine) 0 units 07/17/17 03:12 07/17/17 03:27 Heparin Sodium IVPUSH 07/17/17 03:13 5,000 units .BOLUS ONE Administration Heparin Sodium/Dextrose Confirm 07/17/17 03:24 Heparin 25,000 Units In D5w 500 Ml Administered 07/17/17 03:25 Dose 500 mls @ as directed .ROUTE .STK-MED ONE Metoprolol Tartrate 25 mg 07/17/17 03:12 Lopressor PO 07/17/17 03:13 ONETIME ONE Ondansetron HCl 4 mg 07/17/17 03:15 Zofran Odt PO 07/17/17 03:16 ONETIME ONE Departure - Departure Time of Disposition: 03:38 Disposition: DC/Tfer to Acute Hospital 02 Reason for Transfer *Q: Primary PCI Indicated Condition: Fair Clinical Impression: STEMI (ST elevation myocardial infarction) Qualifiers: Involved coronary artery: unspecified coronary artery Qualified Code(s): I21.3 - ST elevation (STEMI) myocardial infarction of unspecified site Referrals: PCP,None [Primary Care Provider] - - My Orders Last 24 Hours: My Active Orders 07/17/17 03:12 Morphine 4 mg IVPUSH Q10M PRN Nitroglycerin [Nitrostat] 0.4 mg SL Q5M PRN EKG 12 Lead [EK] Stat 07/17/17 03:13 EKG Documentation Completion [RC] ASDIRECTED 07/17/17 03:15 Peripheral IV Care [RC] . DIRECTED TROPONIN I [CHEM] Stat Heparin Sodium/D5W [Heparin 25,000 Units in D5W 500 ML] 25,000 units in 500 ml IV TITRATE Sodium Chloride 0.9% [Saline Flush] 10 ml FLUSH ASDIRECTED PRN Peripheral IV Insertion Adult [OM.PC] Urgent - Assessment/Plan Last 24 Hours: My Active Orders 07/17/17 03:12 Morphine 4 mg IVPUSH Q10M PRN Nitroglycerin [Nitrostat] 0.4 mg SL Q5M PRN EKG 12 Lead [EK] Stat 07/17/17 03:13 EKG Documentation Completion [RC] ASDIRECTED 07/17/17 03:15 Peripheral IV Care [RC] . DIRECTED TROPONIN I [CHEM] Stat Heparin Sodium/D5W [Heparin 25,000 Units in D5W 500 ML] 25,000 units in 500 ml IV TITRATE Sodium Chloride 0.9% [Saline Flush] 10 ml FLUSH ASDIRECTED PRN Peripheral IV Insertion Adult [OM.PC] Urgent Plan: Assessment Acuity = acute Site and laterality = ST elevation myocardial infarction Etiology = coronary artery disease Manifestations = pain Location of injury = Home Lab values = troponin is pending, EKG does demonstrate ST changes the 4,5,6,1 and aVL Plan He was given aspirin, Plavix 600 mg, 5000 unit bolus of heparin, 25 mg of metoprolol, 2 nitroglycerin sublingual and 4 mg of morphine 2 IVs are placed heparin drip will be initiated in route. Called discussed case with Dr. Rodriguez cardiology at [facility] kindly accepted the patient in transport he will be transported via EMS ground directly to catheter lab This note was dictated using [employer] voice recognition software please call with any questions on syntax or bernardo.
[2017-07-17] MEDS ORDERED: Morphine 4 MG/ML Syringe IVPUSH ONE (03:48)
[2017-07-17] MEDS ORDERED: Nitroglycerin/D5W 25 MG/250 ML BOTTLE ONE (03:49)
[2017-07-17] MEDS ORDERED: Morphine 4 MG/ML Syringe ONE (03:50)
[2017-07-17] MEDS ORDERED: Nitroglycerin/D5W 25 MG/250 ML BOTTLE IV SCH (04:00)
== END 2017-07-17 04:00 ==
LOC: JP.ED 03:05
DX: I21.3 ST elevation (STEMI) myocardial infarction of unspecified site (principal); E78.00 Pure hypercholesterolemia, unspecified; I10 Essential (primary) hypertension; E11.9 Type 2 diabetes mellitus without complications; Z79.899 Other long term (current) drug therapy; Z79.84 Long term (current) use of oral hypoglycemic drugs; Z87.891 Personal history of nicotine dependence; R07.89 Other chest pain
CPT/HCPCS: 36415; 71046; 80053; 84484; 85025; 93005; 96365; 96375; 99285; A9270; J1644; J2270; J7050

== ENCOUNTER → 2018-07-15 | Outpatient (CLI) | payer MEDICARE, MEDICAID ==
[~2018-07-15] MED LIST changes: -Bupivacaine 0.5% 50 ML MDV ONE; -Dextrose 5%-Lactated Ringers 1,000 ML IV SCH; +Iopamidol 612 MG/ML 100 ML Bottle IV SCH; -Lidocaine 1% with EPINEPHrine 1:100,000 50 ML MDV ONE; -Midazolam 1 MG/ML 2 ML SDV ONE; -Propofol 200 MG/20 ML SDV ONE; +Sodium Chloride 0.9% 10 ML Syringe FLUSH ONE; +Sodium Chloride 0.9% 80 ML IV ONE; -ceFAZolin 2 GM in Premix Bag 1 BAG IV ONE; -fentaNYL 100 MCG/2 ML SDV ONE
--- NOTE | 2018-07-15 13:20 | CT ---
Chest Abdomen Pelvis w Cont CLINICAL HISTORY: Colon carcinoma TECHNIQUE: Axial scans were obtained from the thoracic inlet to the lung bases following IV infusion of iodinated contrast. Auto dosage reduction and iterative reconstruction techniques employed. COMPARISON: March 26, 2018. FINDINGS: Lung window images show some pleural parenchymal scarring in the right upper lobe. There is a 2 x 3 mm noncalcified nodule in the periphery of the right upper lobe on image #40. There is a 9 x 11 mm nodule in the right perihilar region which is new since prior study. This is on image #40. There is a 2 mm and a 4 mm nodule in the right perihilar region on image #44. These are present on prior study and are unchanged. There is a 4 mm subpleural nodule in the superior segment right lower lobe on image #33. This is present on prior study and is unchanged. There is a 2 x 3 mm noncalcified nodule in the left upper lobe on image #35 and a 2 x 4 mm uncalcified the nodule on image #30. These are unchanged from prior study. Mediastinal window images show a stable low-attenuation nodule in the left lobe of the thyroid. There is stable scattered varying sized lymph nodes throughout the mediastinum. There is enlarged lymph nodes in both pam also unchanged since prior study. There are no pleural effusions. IMPRESSION: New right perihilar pulmonary nodule measuring 9 x 11 mm Scattered stable noncalcified pulmonary nodules bilaterally Stable bilateral hilar and mediastinal lymphadenopathy Chest Abdomen Pelvis w Cont CLINICAL HISTORY: Colon carcinoma COMPARISON: March 26, 2018. TECHNIQUE: Axial tomographic images are obtained from the dome of the diaphragm to the pubic symphysis without IV contrast enhancement. Oral contrast was used. Auto dosage reduction and iterative reconstruction techniques employed. FINDINGS: The liver shows postsurgical changes. There is some fatty infiltration. No mass or biliary dilatation is identified. The gallbladder has a normal appearance. The spleen has normal size and shape. The pancreas is free of mass or inflammatory change. There are some small stable lymph nodes in the peripancreatic head region. The adrenal glands appear normal bilaterally. There is a low-attenuation focus posteriorly in the midpole region of the left kidney which is the unchanged from prior study and felt to represent a cyst. There are atheromatous changes in the aorta.. There is no suspicious retroperitoneal lymphadenopathy. There is a focus of narrowing and possible thickening at the rectosigmoid junction region. This could represent the combination of some angulation and peristalsis but an annular constricting lesion must be excluded. This is a change in appearance since the prior study. There is generalized bladder wall thickening. Patient has a left the sided hydrocele IMPRESSION: There is a focal thickening in the rectosigmoid junction the colon which is suspicious for possible annular constricting neoplasm. Colonoscopy should be considered Postoperative changes in a fatty liver Stable peripancreatic lymph nodes Left renal cyst Left hydrocele
== END ==
LOC: JP.CT 07:32
PROVIDERS: ATTEND Internal Medicine Hematology & Oncology
DX: C18.4 Malignant neoplasm of transverse colon (principal); R91.8 Other nonspecific abnormal finding of lung field; K76.0 Fatty (change of) liver, not elsewhere classified; N28.1 Cyst of kidney, acquired; N43.3 Hydrocele, unspecified
CPT/HCPCS: 71260; 74177; J7030; Q9967; J7050

== ENCOUNTER 2018-07-24 05:21 | Day surgery (SDC) | payer MEDICARE, MEDICAID ==
[2018-07-24] MEDS ORDERED: Dextrose 5%-Lactated Ringers 1,000 ML IV SCH (06:01)
[2018-07-24] MEDS ORDERED: fentaNYL 100 MCG/2 ML SDV ONE (07:14)
[2018-07-24] MEDS ORDERED: Propofol 200 MG/20 ML SDV ONE (07:18)
--- NOTE | 2018-07-29 07:54 | OR ---
DATE OF PROCEDURE: 07/24/2018 SURGEON: Ti Emmanuel MD PREOPERATIVE DIAGNOSIS: History of transverse colon carcinoma. POSTOPERATIVE DIAGNOSES: 1. No recurrent colonic carcinoma identified. 2. Left colonic diverticulosis. OPERATIVE PROCEDURE: Flexible colonoscopy. ANESTHESIA: IV sedation. INDICATION FOR PROCEDURE: This is a 73-year-old male, presenting with history of transverse colon carcinoma, which was resected by means of extended right colectomy and fistulotomy a year ago. At that time, the patient also had 3 liver metastases resected. Recent CT scan showed no evidence of liver recurrence or other obvious recurrence. He did have a subcu nodule located in the right perihilar area on the lung on the CT scan of the chest. His CEA is also noted to be somewhat elevated at 11.4. Plan is to proceed with flexible colonoscopy with polypectomy and biopsies as indicated. Potential risks including bleeding and perforation were discussed, and the patient wishes to proceed. DETAILS OF PROCEDURE: The patient was taken to the operating room and placed in a left lateral decubitus position. IV sedation was administered, after which the initial digital rectal exam was performed, which was unremarkable. Colonoscope was then passed into the rectum with retroflexion revealing uncomplicated hemorrhoidal columns. Scope was eventually passed up to the level of the ileocolic anastomosis. To that level, the patient was found to have complicated left colonic diverticulosis. There was, however, no thickening in the area that was mentioned on the CT scan in the rectosigmoid area. Otherwise, no signs of recurrent neoplasia either within the rectum, colon, or at the ileocolic anastomosis. Scope was then withdrawn. The above findings were reconfirmed, and the procedure then concluded. With regard to the new right perihilar lesion, this would be quite difficult to get a needle biopsy or bronchoscopic biopsy, given the small size and location, and the plan will be to proceed with a repeat CT scan of the chest in October. If this is enlarging at all rate, we will probably obtain a PET scan at that time. Otherwise, we will plan to repeat a colonoscopy in 1 year to rule out any signs of local recurrence. We will see the patient after the CT scan of the chest is obtained in October. Ti Emmanuel MD /[id number]
== END 2018-07-24 08:28 | disposition home or self-care (01) ==
LOC: JP.SDS 05:21
PROVIDERS: ATTEND Surgery
DX: Z12.11 Encounter for screening for malignant neoplasm of colon (principal); K57.30 Diverticulosis of large intestine without perforation or abscess without bleeding; K64.9 Unspecified hemorrhoids; K21.9 Gastro-esophageal reflux disease without esophagitis; I25.10 Atherosclerotic heart disease of native coronary artery without angina pectoris; E78.5 Hyperlipidemia, unspecified; J44.9 Chronic obstructive pulmonary disease, unspecified; R91.1 Solitary pulmonary nodule; Z90.49 Acquired absence of other specified parts of digestive tract; Z95.5 Presence of coronary angioplasty implant and graft; Z85.038 Personal history of other malignant neoplasm of large intestine; Z85.05 Personal history of malignant neoplasm of liver
CPT/HCPCS: 82962; G0105; J2704; J3010; J7042

== ENCOUNTER 2018-12-04 12:22 | Emergency (ER) | payer MEDICARE, MEDICAID ==
[2018-12-04] MEDS ORDERED: Hyoscyamine 0.125 MG Tab.SL SL ONE (13:15)
--- NOTE | 2018-12-04 13:18 | EDM.PDOC ---
ED HPI GENERAL MEDICAL PROBLEM - General Chief Complaint: Gastrointestinal Problem Stated Complaint: STOMACH CRAMPS TAKES CHEMO FOR THROAT CANCER Time Seen by Provider: 12/04/18 13:09 Source of Information: Reports: Patient, Family, RN Notes Reviewed History Limitations: Reports: No Limitations - History of Present Illness INITIAL COMMENTS - FREE TEXT/NARRATIVE: 73-year-old gentleman presents emergency department today with crampy abdominal pain and loose watery stools. He has known history of colon cancer status post resection currently undergoing chemotherapy he has had multiple rounds chemotherapy without difficulty last round was on Friday of this week. Following his chemotherapy is developed loose watery stools no nausea or vomiting, does not feel lightheaded Abdomen Pain Score (Numeric/FACES): 9 - Related Data Allergies Allergy/AdvReac Type Severity Reaction Status Date / Time No Known Allergies Allergy Verified 12/04/18 12:53 Home Meds: Home Meds Fenofibrate Nanocrystallized [Tricor] 48 mg PO DAILY 02/25/13 [History] Fluocinolone Acetonide [Synalar 0.01% Top Soln] 1 ml TOP BID PRN 02/25/13 [ History] SitaGLIPtin [Januvia] 25 mg PO DAILY 05/21/17 [History] atorvaSTATin [Lipitor] 40 mg PO BEDTIME 06/02/17 [History] Acetaminophen [Tylenol Extra Strength] 1,000 mg PO Q6H #100 tablet 06/06/17 [Rx] Magnesium Oxide [Magnesium] 400 mg PO DAILY 06/27/17 [History] Potassium Chloride 40 meq PO DAILY 06/27/17 [History] Prochlorperazine [Compazine] 10 mg PO Q6H PRN 06/27/17 [History] metFORMIN [Glucophage XR] 500 mg PO BIDMEALS 06/27/17 [History] Escitalopram [Lexapro] 10 mg PO DAILY 07/17/17 [History] Aspirin [Halfprin] 81 mg PO DAILY 07/23/18 [History] Clopidogrel Bisulfate [Clopidogrel] 75 mg PO DAILY 07/23/18 [History] Diphenoxylate HCl/Atropine [Lomotil] 1 tab PO Q6H PRN 07/23/18 [History] Ferrous Sulfate [Feosol] 325 mg PO DAILY 07/23/18 [History] Metoprolol Tartrate 25 mg PO BID 07/23/18 [History] Nitroglycerin 0.4 mg SL ASDIRECTED 07/23/18 [History] Pantoprazole [ProTONIX] 40 mg PO DAILY 07/23/18 [History] Polyethylene Glycol 3350 [Miralax] 17 gm PO DAILY PRN 07/23/18 [History] amLODIPine Besylate [Amlodipine Besylate] 10 mg PO DAILY 07/23/18 [History] Hyoscyamine [Hyomax-SL] 0.125 mg SL Q4H PRN #10 tab.sl 12/04/18 [Rx] Past Medical History HEENT History: Reports: Cataract, Hard of Hearing, Impaired Vision Other HEENT History: wears glasses; bilat hearing aides Cardiovascular History: Reports: Angina, CAD, High Cholesterol, Hypertension, SOB on Exertion, Stents Gastrointestinal History: Reports: GERD, Hemorrhoids Musculoskeletal History: Reports: Fracture, Other (See Below) Other Musculoskeletal History: fractured finger Neurological History: Reports: CVA, Neuropathy, Diabetic Psychiatric History: Reports: Depression Endocrine/Metabolic History: Reports: Diabetes, Type II, Obesity/BMI 30+ Hematologic History: Reports: Anticoagulation Therapy, Blood Transfusion(s) Oncologic (Cancer) History: Reports: Colon Dermatologic History: Reports: Psoriasis - Infectious Disease History Infectious Disease History: Reports: Chicken Pox, Measles, Mumps, Rubella - Past Surgical History HEENT Surgical History: Reports: Cataract Surgery Cardiovascular Surgical History: Reports: Coronary Artery Stent, Other (See Below) Other Cardiovascular Surgeries/Procedures: stroke 15 years ago GI Surgical History: Reports: Appendectomy, Colon, Colonoscopy, Other (See Below ) Other GI Surgeries/Procedures: Colon resection Musculoskeletal Surgical History: Reports: None Oncologic Surgical History: Reports: Other (See Below) Other Oncologic Surgeries/Procedures: colon resection Social & Family History - Family History Family Medical History: Noncontributory Oncologic: Reports: Renal, Other (See Below) - Tobacco Use Smoking Status *Q: Never Smoker - Caffeine Use Caffeine Use: Reports: Coffee Caffeine Use Comment: a few cups a day - Recreational Drug Use Recreational Drug Use: No ED ROS GENERAL - Review of Systems Review Of Systems: See Below Constitutional: Reports: No Symptoms HEENT: Reports: No Symptoms Respiratory: Reports: No Symptoms Cardiovascular: Reports: No Symptoms GI/Abdominal: Reports: Abdominal Pain (Cramping), Diarrhea. Denies: Nausea, Vomiting : Reports: No Symptoms ED EXAM, GI/ABD - Physical Exam Exam: See Below Exam Limited By: No Limitations General Appearance: Alert, WD/WN, No Apparent Distress Neck: Normal Inspection, Supple, Non-Tender, Full Range of Motion Respiratory/Chest: No Respiratory Distress, Lungs Clear, Normal Breath Sounds, No Accessory Muscle Use, Chest Non-Tender Cardiovascular: Regular Rate, Rhythm, No Murmur GI/Abdominal Exam: Soft, Non-Tender Course - Vital Signs Last Recorded V/S: Last Vital Signs Temp 97.8 F 12/04/18 12:56 Pulse 90 12/04/18 12:56 Resp 16 12/04/18 12:56 BP 129/81 12/04/18 12:56 Pulse Ox 98 12/04/18 12:56 - Orders/Labs/Meds Labs: Laboratory Tests 12/04/18 12/04/18 Range/Units 13:23 13:23 WBC 6.9 (4.5-11.0) K/uL RBC 3.27 L (4.30-5.90) M/uL Hgb 10.4 L (12.0-15.0) g/dL Hct 29.4 L (40.0-54.0) % MCV 90 (80-98) fL MCH 32 H (27-31) pg MCHC 35 (32-36) % Plt Count 143 L (150-400) K/uL Neut % (Auto) 68 H (36-66) % Lymph % (Auto) 20 L (24-44) % [place] % (Auto) 11 H (2-6) % Eos % (Auto) 2 (2-4) % Baso % (Auto) 0 (0-1) % Sodium 132 L (140-148) mmol/L Potassium 4.9 (3.6-5.2) mmol/L Chloride 100 (100-108) mmol/L Carbon Dioxide 21 (21-32) mmol/L Anion Gap 15.9 H (5.0-14.0) mmol/L BUN 25 H (7-18) mg/dL Creatinine 1.7 H (0.8-1.3) mg/dL Est Cr Clr Drug Dosing 36.72 mL/min Estimated GFR (MDRD) 40 L (>60) Glucose 202 H (74-106) mg/dL Calcium 8.5 (8.5-10.1) mg/dL Total Bilirubin 1.0 D (0.2-1.0) mg/dL AST 21 (15-37) U/L ALT 22 (12-78) U/L Alkaline Phosphatase 87 (46-116) U/L C-Reactive Protein 1.27 H (0.0-0.3) mg/dL Total Protein 6.4 (6.4-8.2) g/dL Albumin 3.3 L (3.4-5.0) g/dL Globulin 3.1 (2.3-3.5) g/dL Albumin/Globulin Ratio 1.1 L (1.2-2.2) Meds: Medications Discontinued Medications Generic Name Dose Route Start Last Admin Trade Name Freq PRN Reason Stop Dose Admin Hyoscyamine 0.125 mg 12/04/18 13:15 12/04/18 13:27 Hyomax-Sl SL 12/04/18 13:16 0.125 mg ONETIME ONE Administration Departure - Departure Time of Disposition: 14:15 Disposition: Home, Self-Care 01 Condition: Fair Clinical Impression: Gastroenteritis - Discharge Information Prescriptions: Hyoscyamine [Hyomax-SL] 0.125 mg SL Q4H PRN #10 tab.sl PRN Reason: Pain Instructions: Viral Gastroenteritis, Adult Referrals: Arturo Crystal MD [Primary Care Provider] - Forms: ED Department Discharge Additional Instructions: Try and Anaspaz as needed for abdominal cramping, continue to push fluids, he medications have been faxed to [facility], Please followup with your primary care provider in 3-5 days if not better, please call return to the emergency department with worsening of symptoms. - Assessment/Plan Plan: Assessment Acuity = acute Site and laterality = gastroenteritis Etiology = unclear etiology] Manifestations = abdominal cramping Location of injury = Home Lab values = hemoglobin low at 10.4 consistent normochromic anemia creatinine elevated 1.7 consistent chronic renal failure stage G IIIB CRP elevated 1.27 Plan He had good relief with the Anaspaz provided plan is to push fluids use Anaspaz as needed for abdominal cramping follow-up primary care 3-5 days if not better This note was dictated using [employer] voice recognition software please call with any questions on syntax or grammar.
== END 2018-12-04 14:24 | disposition home or self-care (01) ==
LOC: JP.ED 12:22
DX: K52.9 Noninfective gastroenteritis and colitis, unspecified (principal); E78.00 Pure hypercholesterolemia, unspecified; I10 Essential (primary) hypertension; I25.10 Atherosclerotic heart disease of native coronary artery without angina pectoris; E11.40 Type 2 diabetes mellitus with diabetic neuropathy, unspecified; F32.9 Major depressive disorder, single episode, unspecified; Z79.899 Other long term (current) drug therapy; Z79.82 Long term (current) use of aspirin; Z79.84 Long term (current) use of oral hypoglycemic drugs
CPT/HCPCS: 36415; 80053; 85025; 86140; 99284; A9270

== ENCOUNTER 2019-07-29 06:29 | Day surgery (SDC) | payer MEDICARE, MEDICAID ==
[2019-07-29] MEDS ORDERED: Dextrose 5%-Lactated Ringers 1,000 ML IV SCH (07:00)
[2019-07-29] MEDS ORDERED: Propofol 200 MG/20 ML SDV ONE (07:39)
[2019-07-29] MEDS ORDERED: fentaNYL 100 MCG/2 ML SDV ONE (07:39)
[2019-07-29] MEDS ORDERED: Midazolam 1 MG/ML 2 ML SDV ONE (07:40)
--- NOTE | 2019-08-11 15:59 | OR ---
DATE OF PROCEDURE: 07/29/2019 SURGEON: Ti Emmanuel MD PREOPERATIVE DIAGNOSIS: History of transverse colon carcinoma. POSTOPERATIVE DIAGNOSES: 1. History of transverse colon carcinoma. 2. No evidence of recurrent carcinoma or new polyp formation. 3. Uncomplicated left colonic diverticulosis. PROCEDURES: Flexible colonoscopy with biopsies of the ileocolic anastomosis. ANESTHESIA: IV sedation. INDICATION FOR PROCEDURE: This is a 74-year-old who is now 2 years and 2 months status post extended right colectomy for transverse colon carcinoma. He had 3 liver metastases resected at the time of that procedure as well, and he received postoperative chemotherapy and to this point has had no signs of any new recurrence. The plan is to proceed with a flexible colonoscopy with biopsies and indications. Potential risks including bleeding and perforation were discussed, and the patient wishes to proceed. DETAILS OF PROCEDURE: The patient was taken to the operating room and placed in a left lateral decubitus position. IV sedation was administered, after which the initial digital rectal exam was performed, was unremarkable. Colonoscope was then passed into the rectum with retroflexion revealing uncomplicated hemorrhoidal columns. The scope was eventually passed to the ileocolic anastomosis. There was some uncomplicated left colonic diverticulosis. Otherwise, no new polyp formation was seen. At the ileocolic anastomosis, there was a small area that was somewhat reddened and edematous. I suspect this is probably likely due to bile type irritation at that level, but to make sure there was no recurrent neoplasia, biopsies were obtained from that area and sent for histologic evaluation. No bleeding from the biopsy sites was seen and the procedure was then concluded. The patient was taken to the recovery room in satisfactory condition. At the time of followup colonoscopies, I think we will allow Medical Oncology to dictate to us. My thinking would probably be to repeat the colonoscopy in something like 2-3 years. Ti Emmanuel MD /[id number] MTDD
== END 2019-07-29 10:10 | disposition home or self-care (01) ==
LOC: JP.SDS 06:29
PROVIDERS: ATTEND Surgery
DX: K52.9 Noninfective gastroenteritis and colitis, unspecified (principal); K57.30 Diverticulosis of large intestine without perforation or abscess without bleeding; K63.89 Other specified diseases of intestine; I10 Essential (primary) hypertension; E11.9 Type 2 diabetes mellitus without complications; F41.9 Anxiety disorder, unspecified; F32.9 Major depressive disorder, single episode, unspecified; Z85.038 Personal history of other malignant neoplasm of large intestine; Z90.49 Acquired absence of other specified parts of digestive tract
CPT/HCPCS: 45380; 88305; J2250; J2704; J3010; J7121

== ENCOUNTER 2020-09-29 13:46 | Emergency (ER) | payer MEDICARE, MEDICAID ==
--- NOTE | 2020-09-29 14:22 | EDM.PDOC ---
ED HPI GENERAL MEDICAL PROBLEM - General Chief Complaint: General Stated Complaint: MEDICAL Time Seen by Provider: 09/29/20 13:55 Source of Information: Reports: Patient, EMS, Family History Limitations: Reports: No Limitations - History of Present Illness INITIAL COMMENTS - FREE TEXT/NARRATIVE: 75-year-old male who has been on an increasing dose of gabapentin for the past week, felt a little off yesterday, kind of "drunk feeling", but seem to be better by evening. This morning he got up at 4 AM, at 5 AM took 300 mg of gabapentin, and went to [employer] to do some errands. He was driving without difficulty but again was feeling lightheaded and "off". When he got home his legs gave out and he lowered himself to the floor. He had no loss of upper extremity strength, no head injury, no lightheadedness, dizziness, headache or other complaints. He had to crawl to the phone to call EMS, by the time they arrived he was starting to get some movement in his legs and by the time he got to the emergency room he was back to baseline. He does have metastatic colon cancer but nothing to the spine or bones. He has an appointment on Friday to follow the metastatic lesion in his liver. He feels fine, he is moving his legs all over, feels normal and wants to leave. He is convinced it was a side effect of the medication. Onset: Sudden Duration: Hour(s): (Within the last hour) Location: Reports: Lower Extremity, Left, Lower Extremity, Right Improves with: Reports: Other (Time seems to have resolved his symptoms) Associated Symptoms: Reports: Weakness - Related Data Allergies Allergy/AdvReac Type Severity Reaction Status Date / Time gabapentin AdvReac Muscle Verified 09/29/20 13:53 Weakness Home Meds: Home Meds Fenofibrate Nanocrystallized [Tricor] 48 mg PO DAILY 02/25/13 [History] Fluocinolone Acetonide [Synalar 0.01% Top Soln] 1 ml TOP BID PRN 02/25/13 [History] SitaGLIPtin [Januvia] 25 mg PO DAILY 05/21/17 [History] atorvaSTATin [Lipitor] 80 mg PO BEDTIME 06/02/17 [History] Acetaminophen [Tylenol Extra Strength] 1,000 mg PO Q6H #100 tablet 06/06/17 [Rx] Magnesium Oxide [Magnesium] 400 mg PO DAILY 06/27/17 [History] Prochlorperazine [Compazine] 10 mg PO Q6H PRN 06/27/17 [History] metFORMIN [Glucophage XR] 500 mg PO BIDMEALS 06/27/17 [History] Escitalopram [Lexapro] 10 mg PO DAILY 07/17/17 [History] Aspirin [Halfprin] 81 mg PO DAILY 07/23/18 [History] Clopidogrel Bisulfate [Clopidogrel] 75 mg PO DAILY 07/23/18 [History] Diphenoxylate HCl/Atropine [Lomotil] 1 tab PO Q6H PRN 07/23/18 [History] Ferrous Sulfate [Feosol] 325 mg PO DAILY 07/23/18 [History] Metoprolol Tartrate 25 mg PO BID 07/23/18 [History] Nitroglycerin 0.4 mg SL ASDIRECTED 07/23/18 [History] Pantoprazole [ProTONIX] 40 mg PO DAILY 07/23/18 [History] amLODIPine Besylate [Amlodipine Besylate] 10 mg PO DAILY 07/23/18 [History] Albuterol [Ventolin HFA] 2 puff INH Q6H PRN 07/26/19 [History] Cholestyramine/Aspartame [Questran Light Powder] 4 gm PO DAILY 07/26/19 [Histor y] Loperamide [Imodium] 4 mg PO ASDIRECTED 07/26/19 [History] Past Medical History HEENT History: Reports: Cataract, Hard of Hearing, Impaired Vision Other HEENT History: wears glasses; bilat hearing aides Cardiovascular History: Reports: Angina, CAD, High Cholesterol, Hypertension, SOB on Exertion, Stents Gastrointestinal History: Reports: GERD, Hemorrhoids Musculoskeletal History: Reports: Fracture, Other (See Below) Other Musculoskeletal History: fractured finger Neurological History: Reports: CVA, Neuropathy, Diabetic Psychiatric History: Reports: Addiction, Depression Endocrine/Metabolic History: Reports: Diabetes, Type II, Obesity/BMI 30+ Hematologic History: Reports: Anticoagulation Therapy, Blood Transfusion(s) Oncologic (Cancer) History: Reports: Colon Dermatologic History: Reports: Psoriasis - Infectious Disease History Infectious Disease History: Reports: Mumps - Past Surgical History Head Surgeries/Procedures: Reports: None HEENT Surgical History: Reports: Cataract Surgery Cardiovascular Surgical History: Reports: Coronary Artery Stent, Other (See Below) Other Cardiovascular Surgeries/Procedures: stroke 15 years ago GI Surgical History: Reports: Appendectomy, Colon, Colonoscopy, EGD, Other (See Below) Other GI Surgeries/Procedures: Colon resection Endocrine Surgical History: Reports: None Neurological Surgical History: Reports: None Musculoskeletal Surgical History: Reports: None Oncologic Surgical History: Reports: Other (See Below) Other Oncologic Surgeries/Procedures: colon resection Dermatological Surgical History: Reports: None Social & Family History - Family History Family Medical History: No Pertinent Family History Oncologic: Reports: Renal, Other (See Below) - Tobacco Use Tobacco Use Status *Q: Never Tobacco User Second Hand Smoke Exposure: No - Caffeine Use Caffeine Use: Reports: Coffee, Soda Caffeine Use Comment: a few cups a day - Recreational Drug Use Recreational Drug Use: No ED ROS GENERAL - Review of Systems Review Of Systems: See Below Constitutional: Reports: Malaise. Denies: Fever, Chills HEENT: Reports: Hearing Loss (Chronic and stable) Respiratory: Denies: Shortness of Breath Cardiovascular: Denies: Chest Pain GI/Abdominal: Reports: Nausea (Some nausea after his chemotherapy). Denies: Abdominal Pain : Reports: No Symptoms Musculoskeletal: Reports: Other (See HPI) Skin: Reports: No Symptoms Neurological: Reports: Paresthesia (Peripheral neuropathy) Psychiatric: Reports: No Symptoms ED EXAM, GENERAL - Physical Exam Exam: See Below Exam Limited By: No Limitations General Appearance: Alert, No Apparent Distress Eye Exam: Bilateral Eye: EOMI, Normal Inspection Head: Atraumatic Neck: Supple, Non-Tender Respiratory/Chest: Lungs Clear Cardiovascular: Regular Rate, Rhythm Extremities: Normal Inspection Neurological: Alert, Oriented, No Motor/Sensory Deficits, Other (No lower extremity weakness, can hold legs up without difficulty against gravity and ambulates normally) Psychiatric: Normal Affect, Normal Mood Skin Exam: Warm, Dry Course - Vital Signs Last Recorded V/S: Last Vital Signs Temp 98.3 F 09/29/20 13:53 Pulse 79 09/29/20 13:53 Resp 17 09/29/20 13:53 BP 127/57 L 09/29/20 13:53 Pulse Ox 96 09/29/20 13:53 - Re-Assessments/Exams Free Text/Narrative Re-Assessment/Exam: 09/29/20 15:51 Patient is completely convinced that this is medication side effect and probably is right. He will hold the gabapentin through the weekend to see if symptoms recur. If they do recur and are persistent, he will return for more evaluation. Otherwise he is planning on calling his primary provider next week to discuss any other medication possibilities or work-up needed, otherwise he will recheck on Friday as planned. Departure - Departure Time of Disposition: 14:32 Disposition: Home, Self-Care 01 Clinical Impression: Weakness of both lower extremities, Medication side effect, Metastatic colon cancer to liver - Discharge Information Instructions: Weakness, [id number] Referrals: Arturo Crystal MD [Primary Care Provider] - Forms: ED Department Discharge Care Plan Goals: Go without the gabapentin through the weekend and call your primary provider next week to update him on how you are doing. Return to the emergency room if symptoms recur especially if persistent. Sepsis Event Note (ED) - Evaluation Sepsis Screening Result: No Definite Risk - Focused Exam Vital Signs: Vital Signs Temp Pulse Resp BP Pulse Ox 09/29/20 13:53 98.3 F 79 17 127/57 L 96 09/29/20 13:52 98.3 F 79 17 127/57 L 96
== END 2020-09-29 14:32 | disposition home or self-care (01) ==
LOC: JP.ED 13:46
DX: R53.1 Weakness (principal); T42.6X5A Adverse effect of other antiepileptic and sedative-hypnotic drugs, initial encounter; C18.9 Malignant neoplasm of colon, unspecified; C78.7 Secondary malignant neoplasm of liver and intrahepatic bile duct; I25.10 Atherosclerotic heart disease of native coronary artery without angina pectoris; E78.00 Pure hypercholesterolemia, unspecified; I10 Essential (primary) hypertension; E11.9 Type 2 diabetes mellitus without complications; E66.9 Obesity, unspecified; Z68.30 Body mass index [BMI] 30.0-30.9, adult; Z88.5 Allergy status to narcotic agent
CPT/HCPCS: 99282; 99285

== ENCOUNTER 2022-06-11 09:17 | Emergency (ER) | payer MEDICARE, MEDICAID | END 2022-06-11 11:08 | disposition home or self-care (01) | LOC: JP.ED 09:17 | DX: S80.11XA Contusion of right lower leg, initial encounter (principal); J43.9 Emphysema, unspecified; I25.119 Atherosclerotic heart disease of native coronary artery with unspecified angina pectoris; E78.00 Pure hypercholesterolemia, unspecified; I10 Essential (primary) hypertension; K21.9 Gastro-esophageal reflux disease without esophagitis; E11.9 Type 2 diabetes mellitus without complications; E66.9 Obesity, unspecified; Z87.891 Personal history of nicotine dependence; Z88.8 Allergy status to other drugs, medicaments and biological substances; Z68.1 Body mass index [BMI] 19.9 or less, adult; W22.09XA Striking against other stationary object, initial encounter | CPT/HCPCS: 93971-26; 93971-RT; 99282; 99283 ==

== ENCOUNTER 2022-07-20 15:22 | Emergency (ER) | payer MEDICARE, MEDICAID ==
[2022-07-20 17:10] LABS: ESTIMATED GFR 48 mL/min (>60)
== END 2022-07-20 18:48 | disposition home or self-care (01) ==
LOC: JP.ED 15:22
DX: C18.9 Malignant neoplasm of colon, unspecified (principal); C78.7 Secondary malignant neoplasm of liver and intrahepatic bile duct; E11.40 Type 2 diabetes mellitus with diabetic neuropathy, unspecified; M62.81 Muscle weakness (generalized); M54.40 Lumbago with sciatica, unspecified side; I25.119 Atherosclerotic heart disease of native coronary artery with unspecified angina pectoris; E78.00 Pure hypercholesterolemia, unspecified; I10 Essential (primary) hypertension; E66.9 Obesity, unspecified; Z88.8 Allergy status to other drugs, medicaments and biological substances; Z79.899 Other long term (current) drug therapy; Z86.73 Personal history of transient ischemic attack (TIA), and cerebral infarction without residual deficits; Z79.02 Long term (current) use of antithrombotics/antiplatelets; Z79.82 Long term (current) use of aspirin; Z68.27 Body mass index [BMI] 27.0-27.9, adult
CPT/HCPCS: 36415; 80053; 81001; 82140; 83605; 83690; 85025; 86140; 99285